=== PATIENT | female | born 1930 | race Caucasian/White ===

== ENCOUNTER 2016-12-15 19:09 | Emergency (ER) | payer MEDICARE, BC ==
--- NOTE | 2016-12-15 19:16 | EDM.PDOC ---
ED HPI HEAD INJURY - General Chief Complaint: Head Injury Stated Complaint: AMBULANCE Time Seen by Provider: 12/15/16 19:15 Source of Information: Reports: Patient, EMS History Limitations: Reports: No limitations - History of Present Illness INITIAL COMMENTS - FREE TEXT/NARRATIVE: EMS states Pt was walking up stairs tripped fell hitting head no LOC per bystander, Pt concerned since taking coumadin. Pt states walked up steps into [employer] and was looking for a seat when she tripped over something on floor and fell onto her head. denies LOC-neck pain. states concerned due to taking coumadin. - Related Data Allergies/ADRs: Allergies Allergy/AdvReac Type Severity Reaction Status Date / Time atorvastatin calcium Allergy Muscle Verified 12/15/16 19:12 [From Lipitor] Aches morphine Allergy Vomiting Verified 12/15/16 19:12 rosuvastatin calcium Allergy Muscle Verified 12/15/16 19:12 [From Crestor] Aches CALCIUM CONTAINING COMPOUNDS Allergy Cannot Uncoded 12/15/16 19:12 Remember Home Meds: Home Meds Albuterol [Ventolin HFA] 2 puff INH QID PRN 01/13/14 [History] Losartan [Cozaar] 25 mg PO DAILY 01/13/14 [History] Metoprolol Tartrate [Lopressor] 100 mg PO QAM 01/13/14 [History] Omeprazole 20 mg PO DAILY 01/13/14 [History] Simvastatin 40 mg PO BEDTIME 01/13/14 [History] Warfarin Sodium 3 mg PO DAILY 01/13/14 [History] amLODIPine Besylate [Amlodipine Besylate] 5 mg PO DAILY 01/13/14 [History] Acetaminophen [Tylenol] 325 mg PO Q3HR PRN 03/09/15 [History] Calcium Carb & Citrate/Vit D3 [Citracal + D ER] 1 tab PO BID 03/09/15 [History] Cholecalciferol (Vitamin D3) [Vitamin D3] 1,000 unit PO DAILY 03/09/15 [History] [place]-3 Fatty Acids [[place]-3] 1 cap PO BID 03/09/15 [History] Oxybutynin [Oxybutynin ER] 10 mg PO DAILY PRN 03/09/15 [History] Ascorbic Acid 500 mg PO DAILY 04/07/15 [History] Fluticasone Propionate [Flonase] 1 spray NASBOTH DAILY 04/07/15 [History] Nitroglycerin [Nitrostat] 1 tab SL ASDIRECTED PRN 04/07/15 [History] Budesonide/Formoterol [Symbicort 160-4.5 MCG] 2 puff INH BID 12/22/15 [History] Multivitamin [Daily Multiple Vitamin] 1 tab PO DAILY 12/22/15 [History] Aspirin [Ecotrin] 81 mg PO DAILY 01/17/16 [History] Furosemide [Lasix] 20 mg PO DAILY 01/17/16 [History] Metoprolol Tartrate [Lopressor] 50 mg PO QPM 01/17/16 [History] Potassium 99 mg PO DAILY 01/17/16 [History] Albuterol/Ipratropium [DuoNeb 3.0-0.5 MG/3 ML] 3 ml NEB Q6HRRT PRN #120 neb [Rx] Past Medical History HEENT History: Reports: Impaired vision Cardiovascular History: Reports: Afib, Hypertension, [place] Respiratory History: Reports: Asthma Gastrointestinal History: Reports: GERD Genitourinary History: Reports: Other (see below) Other Genitourinary History: overactive bladder 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 was a skin cancer Social & Family History - Family History Family Medical History: Unobtainable Cardiac: Reports: Heart failure Respiratory: Reports: Asthma - Tobacco Use Smoking Status *Q: Never Smoker Second Hand Smoke Exposure: No - Alcohol Use Days Per Week of Alcohol Use: 0 - Recreational Drug Use Recreational Drug Use: No Drug Use in Last 12 Months: No - Living Situation & Occupation Living situation: Reports: , alone Occupation: retired ED ROS GENERAL - Review of Systems Review Of Systems: ROS reveals no pertinent complaints other than HPI. ED EXAM, HEAD INJURY - Physical Exam Exam: See Below Exam Limited By: No limitations General Appearance: alert, WD/WN, no apparent distress Head: scalp hematoma. No: Daily's Sign, raccoon eyes Nexus Criteria: No: posterior, midline cervical tenderness, evidence of intoxication, altered level of consciousness, focal neurological deficit, painful distracting injuries Eyes: bilateral eye: PERRL (pupils ER @ 4mm) Ears: hearing grossly normal Throat/Mouth: Normal voice, No airway compromise Neck: non-tender, full range of motion Respiratory: no respiratory distress Cardiovascular: regular rate, rhythm GI/Abdominal Exam (Abbreviated): soft, non tender Neurologic: no motor/sensory deficits, alert, normal mood/affect, oriented x 3 Skin: Normal color, Warm/dry - Jesus Coma Score Best Eye Response ([place]): (4) open spontaneously Best Verbal Response ([place]): (5) oriented Best Motor Response ([place]): (6) obeys commands [place] Total: 15 Course - Vital Signs Last Recorded V/S: Last Vital Signs Temp 36.3 C 12/15/16 19:16 Pulse 86 12/15/16 19:16 Resp 20 12/15/16 19:16 BP 150/82 H 12/15/16 19:16 Pulse Ox 96 12/15/16 19:16 - Orders/Labs/Meds Orders: Active Orders 24 hr Category Date Time Status Head wo Cont [CT] Urgent Exams 12/15/16 19:16 Taken Knee 1V or 2V Rt [CR] Urgent Exams 12/15/16 Taken - Re-Assessments/Exams Free Text/Narrative Re-Assessment/Exam: 12/15/16 21:07 negative xrays discussed with Pt & family. Departure - Departure Time of Disposition: 21:07 Disposition: Home, Self-Care 01 Condition: good Clinical Impression: Forehead contusion Qualifiers: Encounter type: initial encounter Qualified Code(s): S00.83XA - Contusion of other part of head, initial encounter Contusion of right knee Qualifiers: Encounter type: initial encounter Qualified Code(s): S80.01XA - Contusion of right knee, initial encounter Instructions: Post-Concussion Syndrome, [id number] Forms: ED Department Discharge Additional Instructions: 1) elevate right leg as much as possible next 3 to 4 days 2) wear knee immobilizer for next 3 to 4 days 3) ice to swollen knee and forehead swelling 4) recheck is there is any concerns or changes 5) follow up at clinic Monday for possible MRI scan if knee swelling hadn't improved significantly. - My Orders Last 24 Hours: My Active Orders 12/15/16 Knee 1V or 2V Rt [CR] Urgent 12/15/16 19:16 Head wo Cont [CT] Urgent - Assessment/Plan Last 24 Hours: My Active Orders 12/15/16 Knee 1V or 2V Rt [CR] Urgent 12/15/16 19:16 Head wo Cont [CT] Urgent
[2016-12-15 19:17] VITALS: BP 150/82
== END 2016-12-15 21:31 | disposition home or self-care (01) ==
LOC: DL.ED 19:09
DX: S00.83XA Contusion of other part of head, initial encounter (principal); S80.01XA Contusion of right knee, initial encounter; I48.91 Unspecified atrial fibrillation; I10 Essential (primary) hypertension; I25.2 Old myocardial infarction; J45.909 Unspecified asthma, uncomplicated; K21.9 Gastro-esophageal reflux disease without esophagitis; Z86.73 Personal history of transient ischemic attack (TIA), and cerebral infarction without residual deficits; Z79.01 Long term (current) use of anticoagulants; Z79.82 Long term (current) use of aspirin; Z79.899 Other long term (current) drug therapy; Z98.41 Cataract extraction status, right eye; Z88.8 Allergy status to other drugs, medicaments and biological substances; W18.09XA Striking against other object with subsequent fall, initial encounter; Y92.22 Religious institution as the place of occurrence of the external cause
CPT/HCPCS: 70450; 73560-RT; 99282; 99285

== ENCOUNTER 2017-06-03 19:03 | Emergency (ER) | payer MEDICARE, BC ==
[2017-06-03 19:12] VITALS: BP 159/67
--- NOTE | 2017-06-03 19:49 | EDM.PDOC ---
ED HPI GENERAL MEDICAL PROBLEM - General Chief Complaint: Lower Extremity Injury/Pain Stated Complaint: FELL, CAME BY AMBULANCE Time Seen by Provider: 06/03/17 19:46 Source of Information: Reports: Patient History Limitations: Reports: No Limitations - History of Present Illness INITIAL COMMENTS - FREE TEXT/NARRATIVE: fell onto left knee [employer] DR[employer], had to call for ambulance to help up. denies head/neck injury or pain. - Related Data Allergies Allergy/AdvReac Type Severity Reaction Status Date / Time atorvastatin calcium Allergy Muscle Verified 06/03/17 19:08 [From Lipitor] Aches morphine Allergy Vomiting Verified 12/15/16 19:12 rosuvastatin calcium Allergy Muscle Verified 12/15/16 19:12 [From Crestor] Aches CALCIUM CONTAINING COMPOUNDS Allergy Cannot Uncoded 12/15/16 19:12 Remember Home Meds: Home Meds Albuterol [Ventolin HFA] 2 puff INH QID PRN 01/13/14 [History] Losartan [Cozaar] 25 mg PO DAILY 01/13/14 [History] Metoprolol Tartrate [Lopressor] 100 mg PO QAM 01/13/14 [History] Omeprazole 20 mg PO DAILY 01/13/14 [History] Simvastatin 40 mg PO BEDTIME 01/13/14 [History] Warfarin Sodium 3 mg PO DAILY 01/13/14 [History] amLODIPine Besylate [Amlodipine Besylate] 5 mg PO DAILY 01/13/14 [History] Acetaminophen [Tylenol] 325 mg PO Q3HR PRN 03/09/15 [History] Calcium Carb & Citrate/Vit D3 [Citracal + D ER] 1 tab PO BID 03/09/15 [History] Cholecalciferol (Vitamin D3) [Vitamin D3] 1,000 unit PO DAILY 03/09/15 [History] [place]-3 Fatty Acids [[place]-3] 1 cap PO BID 03/09/15 [History] Oxybutynin [Oxybutynin ER] 10 mg PO DAILY PRN 03/09/15 [History] Ascorbic Acid 500 mg PO DAILY 04/07/15 [History] Fluticasone Propionate [Flonase] 1 spray NASBOTH DAILY 04/07/15 [History] Nitroglycerin [Nitrostat] 1 tab SL ASDIRECTED PRN 04/07/15 [History] Budesonide/Formoterol [Symbicort 160-4.5 MCG] 2 puff INH BID 12/22/15 [History] Multivitamin [Daily Multiple Vitamin] 1 tab PO DAILY 12/22/15 [History] Aspirin [Ecotrin] 81 mg PO DAILY 01/17/16 [History] Furosemide [Lasix] 20 mg PO DAILY 01/17/16 [History] Metoprolol Tartrate [Lopressor] 50 mg PO QPM 01/17/16 [History] Potassium 99 mg PO DAILY 01/17/16 [History] Albuterol/Ipratropium [DuoNeb 3.0-0.5 MG/3 ML] 3 ml NEB Q6HRRT PRN #120 neb [Rx] Past Medical History HEENT History: Reports: Impaired Vision Cardiovascular History: Reports: Afib, Hypertension, [place] Respiratory History: Reports: Asthma Gastrointestinal History: Reports: GERD Genitourinary History: Reports: Other (See Below) Other Genitourinary History: overactive bladder 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: Neurological History: Reports: CVA Psychiatric History: Reports: None Hematologic History: Reports: Anticoagulation Therapy Oncologic (Cancer) History: Reports: Malignant Melanoma Dermatologic History: Reports: Eczema - Infectious Disease History Infectious Disease History: Reports: Chicken Pox, Helicobacter Pylori, Measles, Mumps - Past Surgical History HEENT Surgical History: Reports: Cataract Surgery Other Musculoskeletal Surgeries/Procedures:: Back surg Social & Family History - Family History Family Medical History: Unobtainable Cardiac: Reports: Heart Failure Respiratory: Reports: Asthma - Tobacco Use Smoking Status *Q: Never Smoker Second Hand Smoke Exposure: No - Caffeine Use Caffeine Use: Reports: Coffee, Soda, Tea - Alcohol Use Days Per Week of Alcohol Use: 0 - Recreational Drug Use Recreational Drug Use: No Drug Use in Last 12 Months: No - Living Situation & Occupation Living situation: Reports: , Alone Occupation: Retired Review of Systems - Review of Systems Review Of Systems: ROS reveals no pertinent complaints other than HPI. ED EXAM, GENERAL - Physical Exam Exam: See Below Exam Limited By: No Limitations General Appearance: Alert, WD/WN, Mild Distress, Other (discomfort) Ears: Hearing Grossly Normal Throat/Mouth: Normal Voice, No Airway Compromise Head: Atraumatic Neck: Non-Tender, Full Range of Motion Respiratory/Chest: No Respiratory Distress Cardiovascular: Regular Rate, Rhythm GI/Abdominal: Soft, Non-Tender Extremities: Other (left knee ecchymotic over patella, mild swelling, able to extend/flex without too much pain.) Neurological: Alert, Oriented, Normal Cognition, No Motor/Sensory Deficits Psychiatric: Tearful Skin Exam: Warm, Normal Color Lymphatic: No Adenopathy Course - Vital Signs Last Recorded V/S: Last Vital Signs Temp 36.1 C 06/03/17 19:09 Pulse 77 06/03/17 19:09 Resp 18 06/03/17 19:09 BP 159/67 H 06/03/17 19:09 Pulse Ox 94 L 06/03/17 19:09 - Orders/Labs/Meds Orders: Active Orders 24 hr Category Date Time Status Knee 3V Lt [CR] Urgent Exams 06/03/17 19:12 Taken - Re-Assessments/Exams Free Text/Narrative Re-Assessment/Exam: 06/03/17 20:20 results discussed with pt & family. Departure - Departure Time of Disposition: 20:20 Disposition: Home, Self-Care 01 Condition: Good Clinical Impression: Contusion of knee, left Qualifiers: Encounter type: initial encounter Qualified Code(s): S80.02XA - Contusion of left knee, initial encounter - Discharge Information Instructions: Contusion, [id number] Forms: ED Department Discharge Additional Instructions: 1) elevate leg as much as possible next 48 hours 2) ice intermittently for swelling 3) wear SHERIE for comfort may remove at bedtime 4) see family doctor Monday for possible MRI SCAN if not significantly improved - My Orders Last 24 Hours: My Active Orders 06/03/17 19:12 Knee 3V Lt [CR] Urgent - Assessment/Plan Last 24 Hours: My Active Orders 06/03/17 19:12 Knee 3V Lt [CR] Urgent
[2017-06-03] MEDS ORDERED: Acetaminophen 500 MG Tab PO ONE (20:22)
== END 2017-06-03 20:35 | disposition home or self-care (01) ==
LOC: DL.ED 19:03
DX: S80.02XA Contusion of left knee, initial encounter (principal); I10 Essential (primary) hypertension; I25.2 Old myocardial infarction; I48.91 Unspecified atrial fibrillation; J45.909 Unspecified asthma, uncomplicated; K21.9 Gastro-esophageal reflux disease without esophagitis; Z79.01 Long term (current) use of anticoagulants; Z79.899 Other long term (current) drug therapy; Z88.5 Allergy status to narcotic agent; Z88.8 Allergy status to other drugs, medicaments and biological substances; Z79.82 Long term (current) use of aspirin; Z86.73 Personal history of transient ischemic attack (TIA), and cerebral infarction without residual deficits; Z85.820 Personal history of malignant melanoma of skin; Z98.49 Cataract extraction status, unspecified eye; W19.XXXA Unspecified fall, initial encounter
CPT/HCPCS: 73562; 99284; A9270; 99283

== ENCOUNTER 2018-05-31 14:12 | Observation (INO) | payer MEDICARE, BC ==
--- NOTE | 2018-05-31 15:02 | CR ---
Clinical history: 87-year-old female who experienced a "popping sensation" while dressing. Interpretation: Mild, but age appropriate, demineralization of the long bones. No sign of long bone fracture left tibia or fibula. Chronic arthritic changes but no dislocation of the left knee or ankle joints (large heel spur at the insertion plantar aponeurosis base of the os calcis). Faint atheromatous calcifications (diabetic?) soft tissues. CONCLUSION: No long bone fracture left lower extremity.
--- NOTE | 2018-05-31 15:16 | EDM.PDOC ---
ED HPI GENERAL MEDICAL PROBLEM - General Chief Complaint: Lower Extremity Injury/Pain Stated Complaint: IN BY AMBULANCE LEG PAIN Time Seen by Provider: 05/31/18 17:15 Source of Information: Reports: Patient History Limitations: Reports: No Limitations - History of Present Illness INITIAL COMMENTS - FREE TEXT/NARRATIVE: This 87 yo female patient reports to the ED with left lower extremity pain. The patient lives in her own home and was doing her grocery shopping today. When she went to get into her vehicle, the patient reports hearing a "pop" in her left leg/calf. The patient continues to have pain in her left lower leg. The patient has attempted to do things at home after the injury, but was unable to walk, use the restroom or move about her home. Onset: Today Duration: Hour(s):, Constant Location: Reports: Lower Extremity, Left Quality: Reports: Ache, Dull Severity: Moderate Improves with: Reports: None Worsens with: Reports: None Associated Symptoms: Reports: No Other Symptoms Left Lower Leg Pain Score (Numeric/FACES): 10 - Related Data Allergies Allergy/AdvReac Type Severity Reaction Status Date / Time atorvastatin calcium Allergy Muscle Verified 05/31/18 14:43 [From Lipitor] Aches morphine Allergy Vomiting Verified 05/31/18 14:43 rosuvastatin calcium Allergy Muscle Verified 05/31/18 14:43 [From Crestor] Aches CALCIUM CONTAINING COMPOUNDS Allergy Cannot Uncoded 05/31/18 14:43 Remember Home Meds: Home Meds Albuterol [Ventolin HFA] 2 puff INH QID PRN 01/13/14 [History] Losartan [Cozaar] 25 mg PO DAILY 01/13/14 [History] Metoprolol Tartrate [Lopressor] 100 mg PO QAM 01/13/14 [History] Omeprazole 20 mg PO DAILY 01/13/14 [History] Warfarin Sodium 3 mg PO DAILY 01/13/14 [History] amLODIPine Besylate [Amlodipine Besylate] 5 mg PO DAILY 01/13/14 [History] Acetaminophen [Tylenol] 325 mg PO Q3HR PRN 03/09/15 [History] Calcium Carb & Citrate/Vit D3 [Citracal + D ER] 1 tab PO BID 03/09/15 [History] Cholecalciferol (Vitamin D3) [Vitamin D3] 1,000 unit PO DAILY 03/09/15 [History] [place]-3 Fatty Acids [[place]-3] 1 cap PO BID 03/09/15 [History] Oxybutynin [Oxybutynin ER] 10 mg PO DAILY PRN 03/09/15 [History] Ascorbic Acid 500 mg PO DAILY 04/07/15 [History] Fluticasone Propionate [Flonase] 1 spray NASBOTH DAILY 04/07/15 [History] Nitroglycerin [Nitrostat] 1 tab SL ASDIRECTED PRN 04/07/15 [History] Budesonide/Formoterol [Symbicort 160-4.5 MCG] 2 puff INH BID 12/22/15 [History] Multivitamin [Daily Multiple Vitamin] 1 tab PO DAILY 12/22/15 [History] Aspirin [Ecotrin] 81 mg PO DAILY 01/17/16 [History] Furosemide [Lasix] 20 mg PO DAILY 01/17/16 [History] Metoprolol Tartrate [Lopressor] 50 mg PO QPM 01/17/16 [History] Potassium 99 mg PO DAILY 01/17/16 [History] Albuterol/Ipratropium [DuoNeb 3.0-0.5 MG/3 ML] 3 ml NEB Q6HRRT PRN #120 neb [Rx] Pravastatin Sodium 20 mg PO DAILY 05/31/18 [History] Past Medical History HEENT History: Reports: Impaired Vision Cardiovascular History: Reports: Afib, Hypertension, [place] Respiratory History: Reports: Asthma, COPD Gastrointestinal History: Reports: GERD Genitourinary History: Reports: Other (See Below) Other Genitourinary History: overactive bladder 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: Neurological History: Reports: CVA Psychiatric History: Reports: None Hematologic History: Reports: Anticoagulation Therapy Oncologic (Cancer) History: Reports: Malignant Melanoma Dermatologic History: Reports: Eczema - Infectious Disease History Infectious Disease History: Reports: Chicken Pox, Helicobacter Pylori, Measles, Mumps - Past Surgical History HEENT Surgical History: Reports: Cataract Surgery Other Musculoskeletal Surgeries/Procedures:: Back surg x2 Social & Family History - Family History Family Medical History: Unobtainable Cardiac: Reports: Heart Failure Respiratory: Reports: Asthma - Tobacco Use Smoking Status *Q: Never Smoker Second Hand Smoke Exposure: No - Caffeine Use Caffeine Use: Reports: Coffee Other Caffeine Use: 1 cup of coffee a day. - Recreational Drug Use Recreational Drug Use: No - Living Situation & Occupation Living situation: Reports: , Alone Occupation: Retired Review of Systems - Review of Systems Review Of Systems: ROS reveals no pertinent complaints other than HPI. ED EXAM, GENERAL - Physical Exam Exam: See Below Exam Limited By: No Limitations General Appearance: Alert, WD/WN, Moderate Distress, Obese Eye Exam: Bilateral Eye: EOMI, Normal Inspection, PERRL Ears: Normal External Exam, Normal Canal, Hearing Grossly Normal, Normal TMs Nose: Normal Inspection, Normal Mucosa, No Blood Throat/Mouth: Normal Inspection, Normal Lips, Normal Teeth, Normal Gums, Normal Oropharynx, Normal Voice, No Airway Compromise Head: Atraumatic, Normocephalic Neck: Normal Inspection, Supple, Non-Tender, Full Range of Motion Respiratory/Chest: No Respiratory Distress, Lungs Clear, Normal Breath Sounds, No Accessory Muscle Use, Chest Non-Tender Cardiovascular: Normal Peripheral Pulses, Regular Rate, Rhythm, No Edema, No Gallop, No JVD, No Murmur, No Rub GI/Abdominal: Normal Bowel Sounds, Soft, Non-Tender, No Organomegaly, No Distention, No Abnormal Bruit, No Mass (Female) Exam: Deferred Rectal (Female) Exam: Deferred Back Exam: Normal Inspection, Full Range of Motion, NT Extremities: Leg Pain (left lower extremity) Neurological: Alert, Oriented, CN II-XII Intact, Normal Cognition, Abnormal Gait Psychiatric: Normal Affect, Normal Mood Skin Exam: Warm, Dry, Intact, Normal Color, No Rash Lymphatic: No Adenopathy Course - Vital Signs Last Recorded V/S: Last Vital Signs Temp 36.6 C 05/31/18 14:48 Pulse 76 05/31/18 14:48 Resp 16 05/31/18 14:48 BP 180/79 H 05/31/18 14:48 Pulse Ox 94 L 05/31/18 14:48 - Orders/Labs/Meds Labs: Laboratory Tests 05/31/18 05/31/18 05/31/18 Range/Units 15:53 15:53 16:35 WBC 6.5 (5.0-10.0) 10^3/uL RBC 4.12 L (4.2-5.4) 10^6/uL Hgb 12.6 D (12.0-16.0) g/dL Hct 38.6 (37.0-47.0) % MCV 93.7 (80-100) fL MCH 30.6 (27.0-34.0) pg MCHC 32.6 L (33.0-35.0) g/dL Plt Count 215 (150-450) 10^3/uL Lymph % (Auto) 21.9 (20.5-50.1) % [place] % (Auto) 5.1 (2-8) % Eos % (Auto) 1.2 (1.0-3.0) % Add Manual Diff Yes Neutrophils % (Manual) 72 (42-75) % Lymphocytes % (Manual) 22 (20-50) % Monocytes % (Manual) 5 (2-8) % Eosinophils % (Manual) 1 (1-3) % Sodium 142 (135-145) mmol/L Potassium 3.9 (3.6-5.0) mmol/L Chloride 103 (101-111) mmol/L Carbon Dioxide 31.0 (21.0-31.0) mmol/L Anion Gap 11.9 BUN 15 (7-18) mg/dL Creatinine 0.7 (0.6-1.3) mg/dL Est Cr Clr Drug Dosing 46.47 mL/min Estimated GFR (MDRD) > 60 BUN/Creatinine Ratio 21.42 Glucose 114 H (74-105) mg/dL Calcium 9.2 (8.4-10.2) mg/dl Total Bilirubin 1.0 (0.2-1.0) mg/dL AST 21 (10-42) IU/L ALT 26 (10-60) IU/L Alkaline Phosphatase 68 (42-121) IU/L Total Protein 7.3 (6.7-8.2) g/dl Albumin 4.2 (3.2-5.5) g/dl Globulin 3.1 Albumin/Globulin Ratio 1.35 Urine Color Light yellow (YELLOW) Urine Appearance Cloudy (CLEAR) Urine pH 7.0 (5.0-9.0) Ur Specific [place] 1.020 (1.005-1.030) Urine Protein Negative (NEGATIVE) Urine Glucose (UA) Negative (NEGATIVE) Urine Ketones Negative (NEGATIVE) Urine Occult Blood Large H (NEGATIVE) Urine Nitrite Negative (NEGATIVE) Urine Bilirubin Negative (NEGATIVE) Urine Urobilinogen 0.2 (0.2-1.0) mg/dL Ur Leukocyte Esterase Negative (NEGATIVE) Urine RBC 30-40 H /HPF Urine WBC 0-5 (0-5/HPF) /HPF Ur Epithelial Cells Few /HPF Urine Bacteria Rare (0-FEW/HPF) /HPF Departure - Departure Time of Disposition: 17:39 Disposition: Admitted As Inpatient 66 Condition: Fair Clinical Impression: Left leg pain, Decreased activities of daily living (ADL) - Discharge Information *PRESCRIPTION DRUG MONITORING PROGRAM REVIEWED*: Not Applicable *COPY OF PRESCRIPTION DRUG MONITORING REPORT IN PATIENT DANIELA: Not Applicable Forms: ED Department Discharge Care Plan Goals: Discussed the history, examination, lab and x-ray results with Dr. Telles. Dr. Telles accepted the patient for continued evaluation and management as an inpatient at [facility].
[2018-05-31 16:24] LABS: ANION GAP 11.9; CHLORIDE,CL 103 mmol/L (101-111); SODIUM,NA 142 mmol/L (135-145)
[2018-05-31] MEDS ORDERED: Ibuprofen 400 MG Tab PO PRN (19:53)
[2018-05-31] MEDS ORDERED: Ketorolac 30 MG/ML SDV IVPUSH PRN (19:53)
[2018-05-31] MEDS ORDERED: Albuterol/Ipratropium 3.0-0.5 MG/3 ML Neb Soln NEB PRN (19:56)
[2018-05-31] MEDS ORDERED: Acetaminophen 325 MG Tab PO PRN (19:56)
[2018-05-31] MEDS ORDERED: Albuterol 6.7 GM Inhaler INH PRN (19:56)
[2018-05-31] MEDS ORDERED: Nitroglycerin 0.4 MG Tab.SL SL PRN (19:56)
[2018-05-31] MEDS ORDERED: OXYBUTYNIN 10 MG PO PRN (19:56)
[2018-05-31] MEDS ORDERED: Metoprolol Tartrate 50 MG Tab PO SCH (20:00)
--- NOTE | 2018-05-31 20:10 | PCM.HP ---
H&P History of Present Illness - General Date of Service: 05/31/18 Admit Problem/Dx: Admission Diagnosis/Problem Admission Diagnosis/Problem Ambulatory dysfunction Source of Information: Patient History Limitations: Reports: No Limitations - History of Present Illness Initial Comments - Free Text/Narative: 87 yo F with PMH of hypertension, atrial fibrillation on coumadin, CVA, hyperlipidemia, who presents with left leg/knee pain of one day duration. Patient suddenly developed left leg/knee pain this afternoon. She was getting into her car after grocery shopping when she heard a popping sound and subsequently developed pain in the left leg around the knee joint posteriorly. The pain was sharp, worse with movement of the knee. She had significant ambulatory dysfunction at home and decided to come to the ED. In the ED, an xray of the tibia and fibula showed no fractures. ROS: noticed reddish urine. INR done today at clinic was 2.5 No chest pain, no SOB, no abdominal pain Onset of Symptoms: Reports: Today Location: Reports: Lower Extremity, Left Quality: Reports: Sharp Improves with: Reports: Immobilization Worsens with: Reports: Movement Left Lower Leg Pain Score (Numeric/FACES): 5 - Related Data Allergies/Adverse Reactions: Allergies Allergy/AdvReac Type Severity Reaction Status Date / Time atorvastatin calcium Allergy Muscle Verified 05/31/18 18:21 [From Lipitor] Aches morphine Allergy Vomiting Verified 05/31/18 18:21 rosuvastatin calcium Allergy Muscle Verified 05/31/18 18:21 [From Crestor] Aches CALCIUM CONTAINING COMPOUNDS Allergy Cannot Uncoded 05/31/18 18:21 Remember Home Medications: Home Meds Albuterol [Ventolin HFA] 2 puff INH QID PRN 01/13/14 [History] Losartan [Cozaar] 50 mg PO DAILY 01/13/14 [History] Metoprolol Tartrate [Lopressor] 100 mg PO QAM 01/13/14 [History] Omeprazole 20 mg PO DAILY 01/13/14 [History] Warfarin Sodium 3 mg PO .SASUMOTUWETH 01/13/14 [History] amLODIPine Besylate [Amlodipine Besylate] 5 mg PO DAILY 01/13/14 [History] Acetaminophen [Tylenol] 325 mg PO Q3HR PRN 03/09/15 [History] Calcium Carb & Citrate/Vit D3 [Citracal + D ER] 1 tab PO BID 03/09/15 [History] Cholecalciferol (Vitamin D3) [Vitamin D3] 1,000 unit PO DAILY 03/09/15 [History] [place]-3 Fatty Acids [[place]-3] 1 cap PO BID 03/09/15 [History] Oxybutynin [Oxybutynin ER] 10 mg PO DAILY PRN 03/09/15 [History] Ascorbic Acid 500 mg PO DAILY 04/07/15 [History] Fluticasone Propionate [Flonase] 2 spray NASBOTH DAILY 04/07/15 [History] Nitroglycerin [Nitrostat] 1 tab SL ASDIRECTED PRN 04/07/15 [History] Budesonide/Formoterol [Symbicort 160-4.5 MCG] 2 puff INH BID 12/22/15 [History] Multivitamin [Daily Multiple Vitamin] 1 tab PO DAILY 12/22/15 [History] Aspirin [Ecotrin] 81 mg PO DAILY 01/17/16 [History] Furosemide [Lasix] 20 mg PO DAILY 01/17/16 [History] Metoprolol Tartrate [Lopressor] 50 mg PO QPM 01/17/16 [History] Potassium 99 mg PO DAILY 01/17/16 [History] Albuterol/Ipratropium [DuoNeb 3.0-0.5 MG/3 ML] 3 ml NEB Q6HRRT PRN #120 neb [Rx] Pravastatin Sodium 20 mg PO BEDTIME 05/31/18 [History] Warfarin [Coumadin] 6 mg PO .Monday05/31/18 [History] Past Medical History HEENT History: Reports: Impaired Vision Cardiovascular History: Reports: Afib, Hypertension, PR Respiratory History: Reports: Asthma, COPD Gastrointestinal History: Reports: GERD Genitourinary History: Reports: Other (See Below) Other Genitourinary History: overactive 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 [employer] History: Reports: Neurological History: Reports: CVA Psychiatric History: Reports: None Endocrine/Metabolic History: Reports: Obesity/BMI 30+ Hematologic History: Reports: Anticoagulation Therapy Oncologic (Cancer) History: Reports: Malignant Melanoma Dermatologic History: Reports: Eczema - Infectious Disease History Infectious Disease History: Reports: Chicken Pox, Helicobacter Pylori, Measles, Mumps - Past Surgical History HEENT Surgical History: Reports: Adenoidectomy, Cataract Surgery, Tonsillectomy GI Surgical History: Reports: Appendectomy Female Surgical History: Reports: Hysterectomy Other Musculoskeletal Surgeries/Procedures:: Back surg x2 Social & Family History - Family History Family Medical History: Unobtainable Cardiac: Reports: Heart Failure Respiratory: Reports: Asthma - Tobacco Use Smoking Status *Q: Never Smoker Second Hand Smoke Exposure: No - Caffeine Use Caffeine Use: Reports: Coffee Other Caffeine Use: 1 cup of coffee a day. - Recreational Drug Use Recreational Drug Use: No - Living Situation & Occupation Living situation: Reports: , Alone Occupation: Retired H&P Review of Systems - Review of Systems: Review Of Systems: See Below General: Reports: No Symptoms. Denies: Fever HEENT: Reports: No Symptoms. Denies: Sore Throat Pulmonary: Reports: No Symptoms. Denies: Shortness of Breath Cardiovascular: Reports: No Symptoms. Denies: Chest Pain Gastrointestinal: Reports: No Symptoms. Denies: Abdominal Pain Genitourinary: Reports: Hematuria Musculoskeletal: Reports: Leg Pain Skin: Reports: No Symptoms Psychiatric: Reports: No Symptoms Neurological: Reports: No Symptoms Exam - Exam Exam: See Below - Vital Signs Vital Signs: Last Vital Signs Temp 37.1 C 05/31/18 18:21 Pulse 77 05/31/18 18:21 Resp 20 05/31/18 18:21 BP 166/86 H 05/31/18 18:21 Pulse Ox 95 05/31/18 18:21 Weight: 100.561 kg - Exam General: Alert, Oriented HEENT: Conjunctiva Clear Neck: Supple, Trachea Midline Lungs: Clear to Auscultation, Normal Respiratory Effort Cardiovascular: Regular Rate, Regular Rhythm GI/Abdominal Exam: Normal Bowel Sounds Extremities: Other (left knee tenderness, reduced ROM in left knee) - Patient Data Lab Results Last 24 hrs: Laboratory Results - last 24 hr 05/31/18 05/31/18 05/31/18 Range/Units 15:53 15:53 16:35 WBC 6.5 (5.0-10.0) 10^3/uL RBC 4.12 L (4.2-5.4) 10^6/uL Hgb 12.6 D (12.0-16.0) g/dL Hct 38.6 (37.0-47.0) % MCV 93.7 (80-100) fL MCH 30.6 (27.0-34.0) pg MCHC 32.6 L (33.0-35.0) g/dL Plt Count 215 (150-450) 10^3/uL Lymph % (Auto) 21.9 (20.5-50.1) % [place] % (Auto) 5.1 (2-8) % Eos % (Auto) 1.2 (1.0-3.0) % Add Manual Diff Yes Neutrophils % (Manual) 72 (42-75) % Lymphocytes % (Manual) 22 (20-50) % Monocytes % (Manual) 5 (2-8) % Eosinophils % (Manual) 1 (1-3) % Sodium 142 (135-145) mmol/L Potassium 3.9 (3.6-5.0) mmol/L Chloride 103 (101-111) mmol/L Carbon Dioxide 31.0 (21.0-31.0) mmol/L Anion Gap 11.9 BUN 15 (7-18) mg/dL Creatinine 0.7 (0.6-1.3) mg/dL Est Cr Clr Drug Dosing 46.47 mL/min Estimated GFR (MDRD) > 60 BUN/Creatinine Ratio 21.42 Glucose 114 H (74-105) mg/dL Calcium 9.2 (8.4-10.2) mg/dl Total Bilirubin 1.0 (0.2-1.0) mg/dL AST 21 (10-42) IU/L ALT 26 (10-60) IU/L Alkaline Phosphatase 68 (42-121) IU/L Total Protein 7.3 (6.7-8.2) g/dl Albumin 4.2 (3.2-5.5) g/dl Globulin 3.1 Albumin/Globulin Ratio 1.35 Urine Color Light yellow (YELLOW) Urine Appearance Cloudy (CLEAR) Urine pH 7.0 (5.0-9.0) Ur Specific [place] 1.020 (1.005-1.030) Urine Protein Negative (NEGATIVE) Urine Glucose (UA) Negative (NEGATIVE) Urine Ketones Negative (NEGATIVE) Urine Occult Blood Large H (NEGATIVE) Urine Nitrite Negative (NEGATIVE) Urine Bilirubin Negative (NEGATIVE) Urine Urobilinogen 0.2 (0.2-1.0) mg/dL Ur Leukocyte Esterase Negative (NEGATIVE) Urine RBC 30-40 H /HPF Urine WBC 0-5 (0-5/HPF) /HPF Ur Epithelial Cells Few /HPF Urine Bacteria Rare (0-FEW/HPF) /HPF Result Diagrams: 05/31/18 15:53 05/31/18 15:53 Problem List Initiated/Reviewed/Updated: Yes Orders Last 24hrs: Active Orders 24 hr Category Date Time Status Patient Status [ADT] Routine ADT 05/31/18 19:53 Active Ambulate [RC] ASDIRECTED Care 05/31/18 19:53 Active Bedrest Bathroom Privileges [RC] ASDIRECTED Care 05/31/18 19:53 Active Bedrest Bedside Commode [RC] ASDIRECTED Care 05/31/18 19:53 Active Up With Assistance [RC] ASDIRECTED Care 05/31/18 19:53 Active Up ad [place] [RC] ASDIRECTED Care 05/31/18 19:53 Active Up to Chair [RC] ASDIRECTED Care 05/31/18 19:53 Active VTE/DVT Education [RC] PER UNIT ROUTINE Care 05/31/18 19:53 Active Vital Signs [RC] Q4H Care 05/31/18 19:53 Active OT Evaluation and Treatment [CONS] Routine Cons 05/31/18 19:53 Active PT Evaluation and Treatment [CONS] Routine Cons 05/31/18 19:53 Active Regular Diet [DIET] Diet 05/31/18 Dinner Active Knee 3V Lt [CR] Routine Exams 05/31/18 19:38 Ordered INR,PT,PROTHROMBIN TIME [COAG] Stat Lab 05/31/18 19:59 Ordered Acetaminophen [Tylenol] Med 05/31/18 19:56 Ordered 325 mg PO Q3HR PRN Acetaminophen [Tylenol] Med 05/31/18 19:53 Ordered 650 mg PO Q4H PRN Albuterol [Ventolin HFA] Med 05/31/18 19:56 Ordered 2 puff INH QID PRN Albuterol/Ipratropium [DuoNeb 3.0-0.5 MG/3 ML] Med 05/31/18 19:56 Ordered 3 ml NEB Q6HRRT PRN Ascorbic Acid [Ascorbic Acid] Med 06/01/18 09:00 Ordered 500 mg PO DAILY Aspirin [Ecotrin] Med 06/01/18 09:00 Ordered 81 mg PO DAILY Budesonide/Formoterol Fumarate Med 05/31/18 21:00 Ordered 2 puff INH BID Calcium Carb & Citrate/Vit D3 [Citracal + D ER] Med 05/31/18 21:00 Ordered 1 tab PO BID Cholecalciferol (Vitamin D3) [Vitamin D3] Med 06/01/18 09:00 Ordered 1,000 unit PO DAILY Fluticasone Propionate [Flonase] Med 06/01/18 09:00 Ordered 2 spray NASBOTH DAILY Furosemide [Lasix] Med 06/01/18 09:00 Ordered 20 mg PO DAILY Ibuprofen [Motrin] Med 05/31/18 19:53 Ordered 400 mg PO Q6H PRN Ketorolac [Toradol] Med 05/31/18 19:53 Ordered 30 mg IVPUSH Q6H PRN Losartan [Cozaar] Med 06/01/18 09:00 Ordered 50 mg PO DAILY Metoprolol Tartrate Med 06/01/18 09:00 Ordered 100 mg PO QAM Metoprolol Tartrate [Lopressor] Med 05/31/18 20:00 Ordered 50 mg PO QPM Multivitamin [Daily Multiple Vitamin] Med 06/01/18 09:00 Ordered 1 tab PO DAILY Nitroglycerin [Nitrostat] Med 05/31/18 19:56 Ordered 1 tab SL ASDIRECTED PRN [place]-3 Fatty Acids [[place]-3] Med 05/31/18 21:00 Ordered 1 cap PO BID Omeprazole [Omeprazole] Med 06/01/18 09:00 Ordered 20 mg PO DAILY Oxybutynin [Oxybutynin ER] Med 05/31/18 19:56 Ordered 10 mg PO DAILY PRN Pravastatin Sodium [Pravastatin Sodium] Med 05/31/18 21:00 Ordered 20 mg PO BEDTIME amLODIPine Besylate [Amlodipine Besylate] Med 06/01/18 09:00 Ordered 5 mg PO DAILY Resuscitation Status Routine Resus Stat 05/31/18 19:53 Ordered Medication Orders Acetaminophen (Tylenol) 650 mg PO Q4H PRN PRN Reason: Pain (Mild 1-3)/fever Ibuprofen (Motrin) 400 mg PO Q6H PRN PRN Reason: Pain (moderate 4-6) Ketorolac Tromethamine (Toradol) 30 mg IVPUSH Q6H PRN PRN Reason: Pain (severe 7-10) Non-Formulary Medication (Acetaminophen [Tylenol]) 325 mg PO Q3HR PRN PRN Reason: Pain Non-Formulary Medication (Albuterol [Ventolin Hfa]) 2 puff INH QID PRN PRN Reason: Shortness of Breath Non-Formulary Medication (Albuterol/Ipratropium [Duoneb 3.0-0.5 Mg/3 Ml]) 3 ml NEB Q6HRRT PRN PRN Reason: Wheezing Non-Formulary Medication (Amlodipine Besylate [Amlodipine Besylate]) 5 mg PO DAILY [place]IMBO Non-Formulary Medication (Ascorbic Acid [Ascorbic Acid]) 500 mg PO DAILY [place]IM[place] Non-Formulary Medication (Aspirin [Ecotrin]) 81 mg PO DAILY [place] Non-Formulary Medication (Budesonide/Formoterol Fumarate) 2 puff INH BID [place] Non-Formulary Medication (Calcium Carb & Citrate/Vit D3 [Citracal + D Er]) 1 tab PO BID [place] Non-Formulary Medication (Cholecalciferol (Vitamin D3) [Vitamin D3]) 1,000 unit PO DAILY [place]IM[place] Non-Formulary Medication (Fluticasone Propionate [Flonase]) 2 spray NASBOTH DAILY [place]IM[place] Non-Formulary Medication (Furosemide [Lasix]) 20 mg PO DAILY [place] Non-Formulary Medication (Losartan [Cozaar]) 50 mg PO DAILY [place] Non-Formulary Medication (Metoprolol Tartrate [Lopressor]) 50 mg PO QPM [place] Non-Formulary Medication (Metoprolol Tartrate) 100 mg PO QAM [place] Non-Formulary Medication (Multivitamin [Daily Multiple Vitamin]) 1 tab PO DAILY [place] Non-Formulary Medication (Nitroglycerin [Nitrostat]) 1 tab SL ASDIRECTED PRN PRN Reason: Chest Pain Non-Formulary Medication ([place]-3 Fatty Acids [[place]-3]) 1 cap PO BID [place]IM[place] Non-Formulary Medication (Omeprazole [Omeprazole]) 20 mg PO DAILY [place]IM[place] Non-Formulary Medication (Oxybutynin [Oxybutynin Er]) 10 mg PO DAILY PRN PRN Reason: Other Non-Formulary Medication (Pravastatin Sodium [Pravastatin Sodium]) 20 mg PO BEDTIME [facility] Assessment/Plan Comment:: 87 yo F with PMH of hypertension, TIA/CVA, afib on anticoagulation, asthma who presents with left knee/leg pain and ambulatory dysfunction. Left Knee pain Possibly strain/sprain. Unlikely fracture/dislocation/hemarthrosis Check Xray of the left knee PT/OT Atrial fibrillation Rate control: continue metoprolol AC: on coumadin, recheck INR. Hold coumadin given hematuria Asthma Stable, not in acute exacerbation Continue symbicort Hx of CVA continue ASA, statin Hypertension continue amlodipine, losartan Code Status DNI/DNR. I discussed code status with the patient.
[2018-05-31] MEDS: Acetaminophen 325 MG Tab PO PRN (22:08)
[2018-05-31] MEDS: Formoterol/Mometasone 200-5 MCG 8.8 GM Inhaler IH SCH ×2 (22:11→22:29)
[2018-05-31] MEDS: Calcium Carbonate/Vitamin D3 1250 MG-200 Unit Tab PO SCH ×2 (22:19→23:39)
[2018-05-31] MEDS: FISH OIL 1000 MG PO SCH ×2 (22:20→22:27)
[2018-05-31] MEDS: PRAVASTATIN 20 MG PO SCH (22:21)
[2018-05-31] MEDS: [UNRECOGNIZED DRUG - OTHER] PO SCH (22:28)
[2018-05-31] MEDS: CALTRATE PO SCH (22:28)
[2018-06-01] MEDS: Acetaminophen 325 MG Tab PO PRN ×2 (06:06→10:59)
[2018-06-01] MEDS: CALTRATE PO SCH ×2 (08:32→18:05)
[2018-06-01] MEDS: [UNRECOGNIZED DRUG - OTHER] PO SCH ×2 (08:32→18:05)
[2018-06-01] MEDS: Furosemide 20 MG Tab **OWN MED PO SCH (08:33)
[2018-06-01] MEDS: FISH OIL 1000 MG PO SCH ×2 (08:33→20:10)
[2018-06-01] MEDS: METOPROLOL TARTRATE 100 MG PO SCH (08:35)
[2018-06-01] MEDS: Losartan 50 MG Tab **OWN MED PO SCH (08:35)
[2018-06-01] MEDS: FLUTICASONE NASBOTH SCH (08:36)
[2018-06-01] MEDS: AMLODIPINE 5 MG PO SCH (08:36)
[2018-06-01] MEDS: Aspirin 81 MG Tab.EC **OWN MED PO SCH (08:36)
[2018-06-01] MEDS: Formoterol/Mometasone 200-5 MCG 8.8 GM Inhaler IH SCH ×2 (08:47→20:09)
[2018-06-01] MEDS: Multivitamins,Therapeutic Tab PO SCH (08:51)
[2018-06-01] MEDS: Ascorbic Acid 500 MG Tab PO SCH (08:51)
[2018-06-01] MEDS: Cholecalciferol (Vitamin D3) 400 Unit Tab PO SCH (08:52)
--- NOTE | 2018-06-01 09:32 | CR ---
Clinical history: 87-year-old female complaining of left knee pain. Interpretation: 3 views left knee abnormal. Small suprapatellar bursal effusion and dense reactive sclerosis/marginal spur formation patellofemor al surface of the left patella. Similarly asymmetric narrowing of the medial knee joint compartment with some bony eburnation and hyp ertrophic marginal spur formation knee joint. No sign of pathologic skeletal lesion, left knee fracture, dislocation or radiopaque loose joint body . CONCLUSION: Left knee joint effusion. Osteoarthritis.
--- NOTE | 2018-06-01 10:35 | PCM.PN ---
- General Info Date of Service: 06/01/18 Admission Dx/Problem (Free Text): Admission Diagnosis/Problem Admission Diagnosis/Problem Ambulatory dysfunction Subjective Update: 87 yo F with PMH of asthma, afib on AC, hypertension who was admitted yesterday with ambulatory dysfunction and left knee pain. Still has left knee pain. Worse with movement. Had dysuria this morning, no fever. - Review of Systems General: Reports: No Symptoms. Denies: Fever HEENT: Reports: No Symptoms Pulmonary: Reports: No Symptoms. Denies: Shortness of Breath Cardiovascular: Reports: No Symptoms. Denies: Chest Pain Gastrointestinal: Reports: No Symptoms. Denies: Abdominal Pain Genitourinary: Reports: Dysuria Musculoskeletal: Reports: Leg Pain Skin: Reports: No Symptoms Neurological: Reports: No Symptoms - Patient Data Vitals - Most Recent: Last Vital Signs Temp 36.6 C 06/01/18 08:47 Pulse 83 06/01/18 08:47 Resp 20 06/01/18 08:47 BP 166/73 H 06/01/18 08:47 Pulse Ox 93 L 06/01/18 08:47 Weight - Most Recent: 100.289 kg I&O - Last 24 Hours: Intake & Output 05/31/18 06/01/18 06/01/18 22:59 06:59 14:59 Intake Total 500 200 Output Total 850 300 100 Balance -850 200 100 Lab Results Last 24 Hours: Laboratory Results - last 24 hr 05/31/18 05/31/18 05/31/18 Range/Units 15:53 15:53 16:35 WBC 6.5 (5.0-10.0) 10^3/uL RBC 4.12 L (4.2-5.4) 10^6/uL Hgb 12.6 D (12.0-16.0) g/dL Hct 38.6 (37.0-47.0) % MCV 93.7 (80-100) fL MCH 30.6 (27.0-34.0) pg MCHC 32.6 L (33.0-35.0) g/dL Plt Count 215 (150-450) 10^3/uL Lymph % (Auto) 21.9 (20.5-50.1) % [place] % (Auto) 5.1 (2-8) % Eos % (Auto) 1.2 (1.0-3.0) % Add Manual Diff Yes Neutrophils % (Manual) 72 (42-75) % Lymphocytes % (Manual) 22 (20-50) % Monocytes % (Manual) 5 (2-8) % Eosinophils % (Manual) 1 (1-3) % PT (9.0-12.0) SEC INR (0.9-1.2) Sodium 142 (135-145) mmol/L Potassium 3.9 (3.6-5.0) mmol/L Chloride 103 (101-111) mmol/L Carbon Dioxide 31.0 (21.0-31.0) mmol/L Anion Gap 11.9 BUN 15 (7-18) mg/dL Creatinine 0.7 (0.6-1.3) mg/dL Est Cr Clr Drug Dosing 46.47 mL/min Estimated GFR (MDRD) > 60 BUN/Creatinine Ratio 21.42 Glucose 114 H (74-105) mg/dL Calcium 9.2 (8.4-10.2) mg/dl Total Bilirubin 1.0 (0.2-1.0) mg/dL AST 21 (10-42) IU/L ALT 26 (10-60) IU/L Alkaline Phosphatase 68 (42-121) IU/L Total Protein 7.3 (6.7-8.2) g/dl Albumin 4.2 (3.2-5.5) g/dl Globulin 3.1 Albumin/Globulin Ratio 1.35 Urine Color Light yellow (YELLOW) Urine Appearance Cloudy (CLEAR) Urine pH 7.0 (5.0-9.0) Ur Specific [place] 1.020 (1.005-1.030) Urine Protein Negative (NEGATIVE) Urine Glucose (UA) Negative (NEGATIVE) Urine Ketones Negative (NEGATIVE) Urine Occult Blood Large H (NEGATIVE) Urine Nitrite Negative (NEGATIVE) Urine Bilirubin Negative (NEGATIVE) Urine Urobilinogen 0.2 (0.2-1.0) mg/dL Ur Leukocyte Esterase Negative (NEGATIVE) Urine RBC 30-40 H /HPF Urine WBC 0-5 (0-5/HPF) /HPF Ur Epithelial Cells Few /HPF Urine Bacteria Rare (0-FEW/HPF) /HPF // Range/Units 20:09 WBC (5.0-10.0) 10^3/uL RBC (4.2-5.4) 10^6/uL Hgb (12.0-16.0) g/dL Hct (37.0-47.0) % MCV (80-100) fL MCH (27.0-34.0) pg MCHC (33.0-35.0) g/dL Plt Count (150-450) 10^3/uL Lymph % (Auto) (20.5-50.1) % [place] % (Auto) (2-8) % Eos % (Auto) (1.0-3.0) % Add Manual Diff Neutrophils % (Manual) (42-75) % Lymphocytes % (Manual) (20-50) % Monocytes % (Manual) (2-8) % Eosinophils % (Manual) (1-3) % PT 19.4 H (9.0-12.0) SEC INR 2.0 H (0.9-1.2) Sodium (135-145) mmol/L Potassium (3.6-5.0) mmol/L Chloride (101-111) mmol/L Carbon Dioxide (21.0-31.0) mmol/L Anion Gap BUN (7-18) mg/dL Creatinine (0.6-1.3) mg/dL Est Cr Clr Drug Dosing mL/min Estimated GFR (MDRD) BUN/Creatinine Ratio Glucose (74-105) mg/dL Calcium (8.4-10.2) mg/dl Total Bilirubin (0.2-1.0) mg/dL AST (10-42) IU/L ALT (10-60) IU/L Alkaline Phosphatase (42-121) IU/L Total Protein (6.7-8.2) g/dl Albumin (3.2-5.5) g/dl Globulin Albumin/Globulin Ratio Urine Color (YELLOW) Urine Appearance (CLEAR) Urine pH (5.0-9.0) Ur Specific [place] (1.005-1.030) Urine Protein (NEGATIVE) Urine Glucose (UA) (NEGATIVE) Urine Ketones (NEGATIVE) Urine Occult Blood (NEGATIVE) Urine Nitrite (NEGATIVE) Urine Bilirubin (NEGATIVE) Urine Urobilinogen (0.2-1.0) mg/dL Ur Leukocyte Esterase (NEGATIVE) Urine RBC /HPF Urine WBC (0-5/HPF) /HPF Ur Epithelial Cells /HPF Urine Bacteria (0-FEW/HPF) /HPF Med Orders - Current: Current Medications Acetaminophen (Tylenol) 650 mg PO Q4H PRN PRN Reason: Pain (Mild 1-3)/fever Last Admin: 06/01/18 06:06 Dose: 650 mg Albuterol (Proventil Hfa) 0 gm INH QID PRN PRN Reason: Shortness of Breath Albuterol/Ipratropium (Duoneb 3.0-0.5 Mg/3 Ml) 3 ml NEB Q6H PRN PRN Reason: Wheezing Amlodipine Besylate (Norvasc) 5 mg PO DAILY [facility] Last Admin: 06/01/18 08:36 Dose: 5 mg Ascorbic Acid (Vitamin C) 500 mg PO DAILY [facility] Last Admin: 06/01/18 08:51 Dose: Not Given Aspirin (Halfprin) 81 mg PO DAILY [facility] Last Admin: 06/01/18 08:36 Dose: 81 mg Cholecalciferol (Vitamin D3) 1,000 units PO DAILY [facility] Last Admin: 06/01/18 08:52 Dose: Not Given Furosemide (Lasix) 20 mg PO DAILY [facility] Last Admin: 06/01/18 08:33 Dose: 20 mg Ceftriaxone Sodium 1,000 mg/ (Sodium Chloride) 100 mls @ 200 mls/hr IV Q24H [facility] Ibuprofen (Motrin) 400 mg PO Q6H PRN PRN Reason: Pain (moderate 4-6) Losartan Potassium (Cozaar) 50 mg PO DAILY [facility] Last Admin: 06/01/18 08:35 Dose: 50 mg Methyl Salicylate (Icy Hot Cream) 0 gm TOP TID [facility] Mometasone Furoate/Formoterol Fumar (Dulera 200-5 Mcg) 0 puff IH BID [facility] Last Admin: 06/01/18 08:47 Dose: Not Given Multivitamins (Thera) 1 each PO DAILY [facility] Last Admin: 06/01/18 08:51 Dose: Not Given Nitroglycerin (Nitrostat) 0 mg SL ASDIRECTED PRN PRN Reason: Chest Pain Fluticasone Nasal ([place] Own Med) 0 spray NASBOTH DAILY [facility] Last Admin: 06/01/18 08:36 Dose: 2 spray Fish Oil 1000mg (Own Med) 0 cap PO BID [facility] Last Admin: 06/01/18 08:33 Dose: 1 cap Omeprazole 20 Mg Cap (Own Med) 0 mg PO ACBREAKFAST [facility] Last Admin: 06/01/18 05:58 Dose: 20 mg Non-Formulary Medication (Oxybutynin [Oxybutynin Er]) 10 mg PO DAILY PRN PRN Reason: Other Pravastatin 20 Mg (Tab Own Med) 0 mg PO BEDTIME [facility] Last Admin: 05/31/18 22:21 Dose: 20 mg Metoprolol Tar 100mg (Tab Own Med) 0 each PO QAM [facility] Last Admin: 06/01/18 08:35 Dose: 1 each Caltrate 600 + D Tab (Own Med) 1 each PO BIDMEALS [facility] Last Admin: 06/01/18 08:32 Dose: 1 each Metoprolol Tar 100mg (/Tab Own Med) 0 each PO DAILY@1999 [facility] Tramadol HCl (Ultram) 50 mg PO Q4H PRN PRN Reason: Pain (severe 7-10) Warfarin Sodium (Pharmacy To Dose - Warfarin) 1 dose .XX ASDIRECTED [facility] Discontinued Medications Acetaminophen (Tylenol) 325 mg PO Q3H PRN PRN Reason: Pain Calcium Carbonate (Calcium Carbonate/Vitamin D 1250 Mg-200 Unit) 1 tab PO BID [facility] Last Admin: 05/31/18 23:39 Dose: Not Given Ketorolac Tromethamine (Toradol) 30 mg IVPUSH Q6H PRN PRN Reason: Pain (severe 7-10) Metoprolol Tartrate (Lopressor) 50 mg PO DAILY@1999 [facility] Last Admin: 05/31/18 22:17 Dose: 50 mg - Exam General: Alert, Oriented HEENT: Pupils Equal, Pupils Reactive Lungs: Clear to Auscultation, Normal Respiratory Effort Cardiovascular: Regular Rate, Regular Rhythm GI/Abdominal Exam: Normal Bowel Sounds, Soft, Non-Tender Extremities: Limited Range of Motion Skin: Warm, Dry, Intact - Problem List Review Problem List Initiated/Reviewed/Updated: Yes - My Orders Last 24 Hours: My Active Orders 05/31/18 19:53 Patient Status [ADT] Routine Ambulate [RC] ASDIRECTED Bedrest Bathroom Privileges [RC] ASDIRECTED Bedrest Bedside Commode [RC] ASDIRECTED Up With Assistance [RC] ASDIRECTED Up ad [place] [RC] ASDIRECTED Up to Chair [RC] ASDIRECTED VTE/DVT Education [RC] PER UNIT ROUTINE Vital Signs [RC] Q4H OT Evaluation and Treatment [CONS] Routine PT Evaluation and Treatment [CONS] Routine Acetaminophen [Tylenol] 650 mg PO Q4H PRN Ibuprofen [Motrin] 400 mg PO Q6H PRN Resuscitation Status Routine 05/31/18 19:56 Albuterol [Proventil HFA] 0 gm INH QID PRN Albuterol/Ipratropium [DuoNeb 3.0-0.5 MG/3 ML] 3 ml NEB Q6H PRN Nitroglycerin [Nitrostat] 0 mg SL ASDIRECTED PRN Oxybutynin [Oxybutynin ER] 10 mg PO DAILY PRN 05/31/18 21:00 Mometasone/Formoterol [Dulera 200-5 MCG] 0 puff IH BID [place]-3 Fatty Acids [[place]-3] 0 cap PO BID Pravastatin Sodium [Pravastatin Sodium] 0 mg PO BEDTIME 05/31/18 22:22 Patient's Own Medication [Ptom] 0 each PO DAILY@199905/31/18 22:30 Patient's Own Medication [Ptom] 1 each PO BIDMEALS 05/31/18 Dinner Regular Diet [DIET] 06/01/18 06:00 Omeprazole [Omeprazole] 0 mg PO ACBREAKFAST 06/01/18 09:00 Ascorbic Acid [Vitamin C] 500 mg PO DAILY Aspirin [Halfprin] 81 mg PO DAILY Cholecalciferol (Vitamin D3) [Vitamin D3] 1,000 units PO DAILY Fluticasone Propionate [Flonase] 0 spray NASBOTH DAILY Furosemide [Lasix] 20 mg PO DAILY Losartan [Cozaar] 50 mg PO DAILY Multivitamins,Therapeutic [Thera] 1 each PO DAILY Patient's Own Medication [Ptom] 0 each PO QAM amLODIPine [Norvasc] 5 mg PO DAILY 06/01/18 09:44 Menthol/Methyl Salicylate [Icy Hot Cream] See Dose Instructions TOP TID 06/01/18 10:09 Communication Order [RC] DAILY traMADol [Ultram] 50 mg PO Q4H PRN 06/01/18 10:10 ROBE Hose [Antiembolic Hose] [OM.PC] Routine 06/01/18 10:15 Warfarin Pharmacy to Dose [Pharmacy to Dose - Warfarin] 1 dose .XX ASDIRECTED cefTRIAXone [Rocephin] 1,000 mg Sodium Chloride 0.9% [Normal Saline] 100 ml IV Q24H - Plan Plan:: 87 yo F with PMH of hypertension, TIA/CVA, afib on anticoagulation, asthma who presents with left knee/leg pain and ambulatory dysfunction. Left Knee pain Possibly strain/sprain. Unlikely fracture/dislocation/hemarthrosis Check Xray of the left knee: osteoarthritis. Pain management: Add muscle rub and tramadol to pain regimen PT/OT Hematuria/Dysuria Likely cystitis Start antibiotics (IV ceftriaxone) Will discharge on oral medications Atrial fibrillation Rate control: continue metoprolol AC: INR 2.0, restart coumadin Asthma Stable, not in acute exacerbation Continue symbicort Hx of CVA continue ASA, statin Hypertension continue amlodipine, losartan Acceptable BP control Code Status DNI/DNR. I discussed code status with the patient.
[2018-06-01] MEDS: cefTRIAXone 1 GM in Sodium Chloride 0.9% 100 ML IV SCH (11:26)
[2018-06-01] MEDS: Menthol/Methyl Salicylate 85 GM Tube TOP SCH ×3 (11:28→20:12)
[2018-06-01] MEDS ORDERED: Patient's Own Medication 1 Each PO ONE (14:00)
[2018-06-01] MEDS: traMADol 50 MG Tab PO PRN (15:07)
[2018-06-01] MEDS: PRAVASTATIN 20 MG PO SCH (20:10)
[2018-06-01] MEDS: METOPROLOL TARTRATE PO SCH (20:12)
[2018-06-02] MEDS: traMADol 50 MG Tab PO PRN ×3 (02:51→12:57)
--- NOTE | 2018-06-02 07:49 | PCM.PN ---
- General Info Date of Service: 06/02/18 Admission Dx/Problem (Free Text): Admission Diagnosis/Problem Admission Diagnosis/Problem Ambulatory dysfunction Subjective Update: 87 yo F with PMH of asthma, afib on AC, hypertension who was admitted yesterday with ambulatory dysfunction and left knee pain. Still has left knee pain. Worse with movement. - Review of Systems General: Reports: No Symptoms. Denies: Fever HEENT: Reports: No Symptoms. Denies: Sore Throat Pulmonary: Reports: No Symptoms. Denies: Shortness of Breath Cardiovascular: Reports: No Symptoms. Denies: Chest Pain Gastrointestinal: Reports: No Symptoms. Denies: Abdominal Pain Musculoskeletal: Reports: Leg Pain, Joint Pain - Patient Data Vitals - Most Recent: Last Vital Signs Temp 37.1 C 06/02/18 05:00 Pulse 67 06/02/18 05:00 Resp 18 06/02/18 05:00 BP 140/65 06/02/18 05:00 Pulse Ox 90 L 06/02/18 05:00 Weight - Most Recent: 100.062 kg I&O - Last 24 Hours: Intake & Output 06/01/18 06/02/18 06/02/18 22:59 06:59 14:59 Intake Total 600 Output Total 500 300 Balance 100 -300 Lab Results Last 24 Hours: Laboratory Results - last 24 hr 06/01/18 06/02/18 Range/Units 11:43 06:25 PT 16.9 H 17.1 H (9.0-12.0) SEC INR 1.7 H 1.7 H (0.9-1.2) Med Orders - Current: Current Medications Acetaminophen (Tylenol) 650 mg PO Q4H PRN PRN Reason: Pain (Mild 1-3)/fever Last Admin: 06/01/18 10:59 Dose: 650 mg Albuterol (Proventil Hfa) 0 gm INH QID PRN PRN Reason: Shortness of Breath Albuterol/Ipratropium (Duoneb 3.0-0.5 Mg/3 Ml) 3 ml NEB Q6H PRN PRN Reason: Wheezing Amlodipine Besylate (Norvasc) 5 mg PO DAILY [facility] Last Admin: 06/01/18 08:36 Dose: 5 mg Ascorbic Acid (Vitamin C) 500 mg PO DAILY [facility] Last Admin: 06/01/18 08:51 Dose: Not Given Aspirin (Halfprin) 81 mg PO DAILY [facility] Last Admin: 06/01/18 08:36 Dose: 81 mg Cholecalciferol (Vitamin D3) 1,000 units PO DAILY [facility] Last Admin: 06/01/18 08:52 Dose: Not Given Furosemide (Lasix) 20 mg PO DAILY [facility] Last Admin: 06/01/18 08:33 Dose: 20 mg Ceftriaxone Sodium 1 gm/ (Sodium Chloride) 100 mls @ 200 mls/hr IV Q24H [facility] Last Infusion: 06/01/18 12:00 Dose: Infused Ibuprofen (Motrin) 400 mg PO Q6H PRN PRN Reason: Pain (moderate 4-6) Losartan Potassium (Cozaar) 50 mg PO DAILY [facility] Last Admin: 06/01/18 08:35 Dose: 50 mg Methyl Salicylate (Icy Hot Cream) 0 gm TOP TID [facility] Last Admin: 06/01/18 20:12 Dose: 1 applic Mometasone Furoate/Formoterol Fumar (Dulera 200-5 Mcg) 0 puff IH BID [facility] Last Admin: 06/01/18 20:09 Dose: Not Given Multivitamins (Thera) 1 each PO DAILY [facility] Last Admin: 06/01/18 08:51 Dose: Not Given Nitroglycerin (Nitrostat) 0 mg SL ASDIRECTED PRN PRN Reason: Chest Pain Fluticasone Nasal ([place] Own Med) 0 spray NASBOTH DAILY [facility] Last Admin: 06/01/18 08:36 Dose: 2 spray Fish Oil 1000mg (Own Med) 0 cap PO BID [facility] Last Admin: 06/01/18 20:10 Dose: Not Given Omeprazole 20 Mg Cap (Own Med) 0 mg PO ACBREAKFAST [facility] Last Admin: 06/02/18 05:19 Dose: 20 mg Pravastatin 20 Mg (Tab Own Med) 0 mg PO BEDTIME [facility] Last Admin: 06/01/18 20:10 Dose: 20 mg Metoprolol Tar 100mg (Tab Own Med) 0 each PO QAM [facility] Last Admin: 06/01/18 08:35 Dose: 1 each Oxybutynin Er 10 Mg (Pt's Own Med) 0 each PO DAILY PRN PRN Reason: Other Caltrate 600 + D Tab (Own Med) 1 each PO BIDMEALS [facility] Last Admin: 06/01/18 18:05 Dose: Not Given Metoprolol Tar 100mg (/Tab Own Med) 0 each PO DAILY@1999 [facility] Last Admin: 06/01/18 20:12 Dose: 50 each Warfarin 3 Mg Tab* Patient's Own Medication* 0 each PO ONETIME ONE Stop: 06/02/18 14:01 Tramadol HCl (Ultram) 50 mg PO Q4H PRN PRN Reason: Pain (severe 7-10) Last Admin: 06/02/18 02:51 Dose: 50 mg Warfarin Sodium (Pharmacy To Dose - Warfarin) 1 dose .XX ASDIRECTED [facility] Discontinued Medications Acetaminophen (Tylenol) 325 mg PO Q3H PRN PRN Reason: Pain Calcium Carbonate (Calcium Carbonate/Vitamin D 1250 Mg-200 Unit) 1 tab PO BID [facility] Last Admin: 05/31/18 23:39 Dose: Not Given Ketorolac Tromethamine (Toradol) 30 mg IVPUSH Q6H PRN PRN Reason: Pain (severe 7-10) Metoprolol Tartrate (Lopressor) 50 mg PO DAILY@1999 [facility] Last Admin: 05/31/18 22:17 Dose: 50 mg Patient Own Medication (Ptom) 0 each PO ONETIME ONE Stop: 06/01/18 14:01 Last Admin: 06/01/18 14:56 Dose: 2 each - Exam General: Alert, Oriented HEENT: Pupils Equal, Pupils Reactive Neck: Supple Lungs: Clear to Auscultation, Normal Respiratory Effort Cardiovascular: Regular Rate, Regular Rhythm GI/Abdominal Exam: Normal Bowel Sounds Extremities: Limited Range of Motion - Problem List Review Problem List Initiated/Reviewed/Updated: Yes - My Orders Last 24 Hours: My Active Orders 06/01/18 09:00 Ascorbic Acid [Vitamin C] 500 mg PO DAILY Aspirin [Halfprin] 81 mg PO DAILY Cholecalciferol (Vitamin D3) [Vitamin D3] 1,000 units PO DAILY Fluticasone Propionate [Flonase] 0 spray NASBOTH DAILY Furosemide [Lasix] 20 mg PO DAILY Losartan [Cozaar] 50 mg PO DAILY Multivitamins,Therapeutic [Thera] 1 each PO DAILY Patient's Own Medication [Ptom] 0 each PO QAM amLODIPine [Norvasc] 5 mg PO DAILY 06/01/18 09:44 Menthol/Methyl Salicylate [Icy Hot Cream] See Dose Instructions TOP TID 06/01/18 10:09 Communication Order [RC] DAILY traMADol [Ultram] 50 mg PO Q4H PRN 06/01/18 10:10 ROBE Hose [Antiembolic Hose] [OM.PC] Routine 06/01/18 10:15 Warfarin Pharmacy to Dose [Pharmacy to Dose - Warfarin] 1 dose .XX ASDIRECTED 06/01/18 11:00 cefTRIAXone [Rocephin] 1 gm Sodium Chloride 0.9% [Normal Saline] 100 ml IV Q24H 06/02/18 14:00 Patient's Own Medication [Ptom] 0 each PO ONETIME ONE 06/03/18 11:15 INR,PT,PROTHROMBIN TIME [COAG] DAILY 06/04/18 11:15 INR,PT,PROTHROMBIN TIME [COAG] DAILY 06/05/18 11:15 INR,PT,PROTHROMBIN TIME [COAG] DAILY 06/06/18 11:15 INR,PT,PROTHROMBIN TIME [COAG] DAILY 06/07/18 11:15 INR,PT,PROTHROMBIN TIME [COAG] DAILY - Plan Plan:: 87 yo F with PMH of hypertension, TIA/CVA, afib on anticoagulation, asthma who presents with left knee/leg pain and ambulatory dysfunction. Left Knee pain Possibly strain/sprain. Flare of Osteoarthritis Xray of the left knee: osteoarthritis. Pain management: Continue tylenol, tramadol, muscle rub for pain regimen PT/OT Hematuria/Dysuria, improved Likely cystitis Continue antibiotics (IV ceftriaxone) Will discharge on oral medications Atrial fibrillation Rate control: continue metoprolol AC: INR 2.0, restart coumadin Asthma Stable, not in acute exacerbation Continue symbicort Hx of CVA continue ASA, statin Hypertension continue amlodipine, losartan Acceptable BP control Code Status DNI/DNR
[2018-06-02] MEDS: Losartan 50 MG Tab **OWN MED PO SCH (09:02)
[2018-06-02] MEDS: Multivitamins,Therapeutic Tab PO SCH (09:02)
[2018-06-02] MEDS: AMLODIPINE 5 MG PO SCH (09:03)
[2018-06-02] MEDS: Furosemide 20 MG Tab **OWN MED PO SCH (09:03)
[2018-06-02] MEDS: Aspirin 81 MG Tab.EC **OWN MED PO SCH (09:03)
[2018-06-02] MEDS: Ascorbic Acid 500 MG Tab PO SCH (09:03)
[2018-06-02] MEDS: Cholecalciferol (Vitamin D3) 400 Unit Tab PO SCH (09:05)
[2018-06-02] MEDS: [UNRECOGNIZED DRUG - OTHER] PO SCH ×2 (09:08→17:38)
[2018-06-02] MEDS: CALTRATE PO SCH ×2 (09:08→17:38)
[2018-06-02] MEDS: Formoterol/Mometasone 200-5 MCG 8.8 GM Inhaler IH SCH ×2 (09:09→22:11)
[2018-06-02] MEDS: FISH OIL 1000 MG PO SCH ×2 (09:10→22:11)
[2018-06-02] MEDS: FLUTICASONE NASBOTH SCH (09:10)
[2018-06-02] MEDS: METOPROLOL TARTRATE 100 MG PO SCH (09:14)
[2018-06-02] MEDS: Menthol/Methyl Salicylate 85 GM Tube TOP SCH ×3 (09:17→22:11)
[2018-06-02] MEDS: cefTRIAXone 1 GM in Sodium Chloride 0.9% 100 ML IV SCH (12:34)
[2018-06-02] MEDS ORDERED: WARFARIN 3 MG PO ONE (14:00)
[2018-06-02] MEDS: METOPROLOL TARTRATE PO SCH (21:27)
[2018-06-02] MEDS: PRAVASTATIN 20 MG PO SCH (21:29)
[2018-06-03] MEDS: Multivitamins,Therapeutic Tab PO SCH (08:59)
[2018-06-03] MEDS: Furosemide 20 MG Tab **OWN MED PO SCH (08:59)
[2018-06-03] MEDS: traMADol 50 MG Tab PO PRN ×3 (08:59→18:10)
[2018-06-03] MEDS: Losartan 50 MG Tab **OWN MED PO SCH (08:59)
[2018-06-03] MEDS: Cholecalciferol (Vitamin D3) 400 Unit Tab PO SCH (09:00)
[2018-06-03] MEDS: AMLODIPINE 5 MG PO SCH (09:00)
[2018-06-03] MEDS: Aspirin 81 MG Tab.EC **OWN MED PO SCH (09:01)
[2018-06-03] MEDS: Ascorbic Acid 500 MG Tab PO SCH (09:01)
[2018-06-03] MEDS: [UNRECOGNIZED DRUG - OTHER] PO SCH ×2 (09:04→18:11)
[2018-06-03] MEDS: Formoterol/Mometasone 200-5 MCG 8.8 GM Inhaler IH SCH ×2 (09:04→20:25)
[2018-06-03] MEDS: CALTRATE PO SCH ×2 (09:04→18:11)
[2018-06-03] MEDS: FISH OIL 1000 MG PO SCH ×2 (09:06→20:26)
[2018-06-03] MEDS: FLUTICASONE NASBOTH SCH (09:07)
[2018-06-03] MEDS: Menthol/Methyl Salicylate 85 GM Tube TOP SCH ×3 (09:07→20:26)
[2018-06-03] MEDS: METOPROLOL TARTRATE 100 MG PO SCH (09:08)
--- NOTE | 2018-06-03 09:25 | PCM.PN ---
- General Info Date of Service: 06/03/18 Admission Dx/Problem (Free Text): Admission Diagnosis/Problem Admission Diagnosis/Problem Ambulatory dysfunction Subjective Update: 87 yo F with PMH of asthma, afib on AC, hypertension who was admitted yesterday with ambulatory dysfunction and left knee pain. Still has left knee pain. Worse with movement. - Review of Systems General: Denies: Fever HEENT: Denies: Sore Throat Pulmonary: Denies: Shortness of Breath Cardiovascular: Denies: Chest Pain Gastrointestinal: Denies: Abdominal Pain Genitourinary: Denies: Dysuria Musculoskeletal: Reports: Other (left knee pain) Skin: Reports: No Symptoms. Denies: Jaundice Neurological: Reports: No Symptoms - Patient Data Vitals - Most Recent: Last Vital Signs Temp 36.9 C 06/03/18 08:09 Pulse 68 06/03/18 08:09 Resp 20 06/03/18 08:09 BP 166/67 H 06/03/18 09:00 Pulse Ox 96 06/03/18 08:09 Weight - Most Recent: 100.97 kg I&O - Last 24 Hours: Intake & Output 06/02/18 06/03/18 06/03/18 22:59 06:59 14:59 Intake Total 450 Output Total 700 Balance -250 Lab Results Last 24 Hours: Laboratory Results - last 24 hr 06/03/18 Range/Units 06:23 PT 20.2 H (9.0-12.0) SEC INR 2.1 H (0.9-1.2) Med Orders - Current: Current Medications Acetaminophen (Tylenol) 650 mg PO Q4H PRN PRN Reason: Pain (Mild 1-3)/fever Last Admin: 06/01/18 10:59 Dose: 650 mg Albuterol (Proventil Hfa) 0 gm INH QID PRN PRN Reason: Shortness of Breath Albuterol/Ipratropium (Duoneb 3.0-0.5 Mg/3 Ml) 3 ml NEB Q6H PRN PRN Reason: Wheezing Amlodipine Besylate (Norvasc) 5 mg PO DAILY [facility] Last Admin: 06/03/18 09:00 Dose: 5 mg Ascorbic Acid (Vitamin C) 500 mg PO DAILY [facility] Last Admin: 06/03/18 09:01 Dose: 500 mg Aspirin (Halfprin) 81 mg PO DAILY [facility] Last Admin: 06/03/18 09:01 Dose: 81 mg Cholecalciferol (Vitamin D3) 1,000 units PO DAILY [facility] Last Admin: 06/03/18 09:00 Dose: 1,000 units Furosemide (Lasix) 20 mg PO DAILY [facility] Last Admin: 06/03/18 08:59 Dose: 20 mg Ceftriaxone Sodium 1 gm/ (Sodium Chloride) 100 mls @ 200 mls/hr IV Q24H [facility] Last Admin: 06/02/18 12:34 Dose: 200 mls/hr Ibuprofen (Motrin) 400 mg PO Q6H PRN PRN Reason: Pain (moderate 4-6) Losartan Potassium (Cozaar) 50 mg PO DAILY [facility] Last Admin: 06/03/18 08:59 Dose: 50 mg Methyl Salicylate (Icy Hot Cream) 0 gm TOP TID [facility] Last Admin: 06/03/18 09:07 Dose: 1 applic Mometasone Furoate/Formoterol Fumar (Dulera 200-5 Mcg) 0 puff IH BID [facility] Last Admin: 06/03/18 09:04 Dose: 2 puff Multivitamins (Thera) 1 each PO DAILY [facility] Last Admin: 06/03/18 08:59 Dose: 1 each Nitroglycerin (Nitrostat) 0 mg SL ASDIRECTED PRN PRN Reason: Chest Pain Fluticasone Nasal ([place] Own Med) 0 spray NASBOTH DAILY [facility] Last Admin: 06/03/18 09:07 Dose: 2 spray Fish Oil 1000mg (Own Med) 0 cap PO BID [facility] Last Admin: 06/03/18 09:06 Dose: 1 cap Omeprazole 20 Mg Cap (Own Med) 0 mg PO ACBREAKFAST [facility] Last Admin: 06/03/18 05:06 Dose: 20 mg Pravastatin 20 Mg (Tab Own Med) 0 mg PO BEDTIME [facility] Last Admin: 06/02/18 21:29 Dose: 20 mg Metoprolol Tar 100mg (Tab Own Med) 0 each PO QAM [facility] Last Admin: 06/03/18 09:08 Dose: 1 each Oxybutynin Er 10 Mg (Pt's Own Med) 0 each PO DAILY PRN PRN Reason: Other Caltrate 600 + D Tab (Own Med) 1 each PO BIDMEALS [facility] Last Admin: 06/03/18 09:04 Dose: 1 each Metoprolol Tar 100mg (/Tab Own Med) 0 each PO DAILY@1999 [facility] Last Admin: 06/02/18 21:27 Dose: 0.5 each Warfarin 3 Mg Tab* Patient's Own Medication* 0 each PO ONETIME ONE Stop: 06/03/18 14:01 Tramadol HCl (Ultram) 50 mg PO Q4H PRN PRN Reason: Pain (severe 7-10) Last Admin: 06/03/18 08:59 Dose: 50 mg Warfarin Sodium (Pharmacy To Dose - Warfarin) 1 dose .XX ASDIRECTED [facility] Discontinued Medications Acetaminophen (Tylenol) 325 mg PO Q3H PRN PRN Reason: Pain Calcium Carbonate (Calcium Carbonate/Vitamin D 1250 Mg-200 Unit) 1 tab PO BID [facility] Last Admin: 05/31/18 23:39 Dose: Not Given Ketorolac Tromethamine (Toradol) 30 mg IVPUSH Q6H PRN PRN Reason: Pain (severe 7-10) Metoprolol Tartrate (Lopressor) 50 mg PO DAILY@1999 [facility] Last Admin: 05/31/18 22:17 Dose: 50 mg Patient Own Medication (Ptom) 0 each PO ONETIME ONE Stop: 06/01/18 14:01 Last Admin: 06/01/18 14:56 Dose: 2 each Warfarin 3 Mg Tab* Patient's Own Medication* 0 each PO ONETIME ONE Stop: 06/02/18 14:01 Last Admin: 06/02/18 13:04 Dose: 2 each - Exam General: Alert, Oriented HEENT: Pupils Equal, Pupils Reactive Lungs: Clear to Auscultation Cardiovascular: Regular Rate, Regular Rhythm GI/Abdominal Exam: Normal Bowel Sounds Extremities: Limited Range of Motion - Problem List Review Problem List Initiated/Reviewed/Updated: Yes - My Orders Last 24 Hours: My Active Orders 06/02/18 09:26 SCD [Sequential Compression Device] [OM.PC] Routine 06/03/18 14:00 Patient's Own Medication [Ptom] 0 each PO ONETIME ONE 06/04/18 11:15 INR,PT,PROTHROMBIN TIME [COAG] DAILY 06/05/18 11:15 INR,PT,PROTHROMBIN TIME [COAG] DAILY 06/06/18 11:15 INR,PT,PROTHROMBIN TIME [COAG] DAILY 06/07/18 11:15 INR,PT,PROTHROMBIN TIME [COAG] DAILY - Plan Plan:: 87 yo F with PMH of hypertension, TIA/CVA, afib on anticoagulation, asthma who presents with left knee/leg pain and ambulatory dysfunction. Left Knee pain Possibly strain/sprain + Flare of Osteoarthritis Xray of the left knee: osteoarthritis. Pain management: Continue tylenol, tramadol, muscle rub for pain regimen PT/OT Hematuria/Dysuria, improved Likely cystitis Continue antibiotics (IV ceftriaxone) Will discharge on oral medications Atrial fibrillation Rate control: continue metoprolol AC: INR 2.0, restart coumadin Asthma Stable, not in acute exacerbation Continue symbicort Hx of CVA continue ASA, statin Hypertension continue amlodipine, losartan Acceptable BP control Code Status DNI/DNR
[2018-06-03] MEDS: cefTRIAXone 1 GM in Sodium Chloride 0.9% 100 ML IV SCH (12:10)
[2018-06-03] MEDS ORDERED: WARFARIN 3 MG PO ONE (14:00)
[2018-06-03] MEDS: METOPROLOL TARTRATE PO SCH (20:01)
[2018-06-03] MEDS: PRAVASTATIN 20 MG PO SCH (20:27)
[2018-06-04] MEDS: traMADol 50 MG Tab PO PRN (04:14)
[2018-06-04] MEDS: [UNRECOGNIZED DRUG - OTHER] PO SCH (08:13)
[2018-06-04] MEDS: CALTRATE PO SCH (08:13)
[2018-06-04] MEDS: Losartan 50 MG Tab **OWN MED PO SCH (08:13)
[2018-06-04] MEDS: Aspirin 81 MG Tab.EC **OWN MED PO SCH (08:14)
[2018-06-04] MEDS: FLUTICASONE NASBOTH SCH (08:14)
[2018-06-04] MEDS: AMLODIPINE 5 MG PO SCH (08:15)
[2018-06-04] MEDS: Menthol/Methyl Salicylate 85 GM Tube TOP SCH ×2 (08:15→13:17)
[2018-06-04] MEDS: Furosemide 20 MG Tab **OWN MED PO SCH (08:15)
[2018-06-04] MEDS: FISH OIL 1000 MG PO SCH (08:16)
[2018-06-04] MEDS: Ascorbic Acid 500 MG Tab PO SCH (08:17)
[2018-06-04] MEDS: METOPROLOL TARTRATE 100 MG PO SCH (08:17)
[2018-06-04] MEDS: Cholecalciferol (Vitamin D3) 400 Unit Tab PO SCH (08:17)
[2018-06-04] MEDS: Multivitamins,Therapeutic Tab PO SCH (08:17)
[2018-06-04] MEDS: Formoterol/Mometasone 200-5 MCG 8.8 GM Inhaler IH SCH (08:18)
[2018-06-04] MEDS ORDERED: WARFARIN 3 MG PO ONE ×2 (09:00→14:00)
[2018-06-04] MEDS: cefTRIAXone 1 GM in Sodium Chloride 0.9% 100 ML IV SCH (11:22)
[2018-06-04] MEDS ORDERED: Sodium Chloride 0.9% 10 ML Syringe FLUSH PRN (11:29)
--- NOTE | 2018-06-04 13:37 | US ---
CLINICAL HISTORY: 87-year-old female with pain behind the left knee. Cunningham's cyst? Aneurysm? DVT popl iteal vein? INTERPRETATION: NOTE: Two adjacent hypoechoic, avascular, cystic lesions behind the knee medial to the popliteal vess els measuring respectively,15.8 mm x 10 mm and 21.4 mm x 44.8 mm diameter. No sign of popliteal artery aneurysm. Demonstrable blood flow and no intraluminal thrombus or abnormal compressibility of the popliteal vei n, i.e., no DVT behind the knee. 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
[2018-06-04 14:39] VITALS: BP 134/54
--- NOTE | 2018-06-04 14:53 | PCM.DCSUM1 ---
Discharge Summary - Hospital Course Free Text/Narrative:: 87 yo F with PMH of hypertension, atrial fibrillation on coumadin, CVA, hyperlipidemia, who presents with left leg/knee pain of one day duration. Patient suddenly developed left leg/knee pain on 05/31/2018. She was getting into her car after grocery shopping when she heard a popping sound and subsequently developed pain in the left leg around the knee joint posteriorly. The pain was sharp, worse with movement of the knee. She had significant ambulatory dysfunction at home and decided to come to the ED. In the ED, an xray of the tibia and fibula showed no fractures. Subsequent knee Xray showed features of osteoarthritis. She was started on pain medications and PT. She did not get relief from the pain. US of the popliteal region showed two cysts. She was transferred to [facility] for Ortho eval given the failure of medical treatment. Also had hematuria and dysuria and was treated empirically with IV ceftriaxone. - Discharge Data Discharge Date: 06/04/18 Discharge Disposition: DC/Tfer to Acute Hospital 02 Condition: Fair - Patient Summary/Data Consults: Consultations 05/31/18 19:53 OT Evaluation and Treatment [CONS] Routine PT Evaluation and Treatment [CONS] Routine - Discharge Plan *PRESCRIPTION DRUG MONITORING PROGRAM REVIEWED*: Not Applicable *COPY OF PRESCRIPTION DRUG MONITORING REPORT IN PATIENT DANIELA: Not Applicable Home Medications: Home Meds Albuterol [Ventolin HFA] 2 puff INH QID PRN 01/13/14 [History] Losartan [Cozaar] 50 mg PO DAILY 01/13/14 [History] Metoprolol Tartrate [Lopressor] 100 mg PO QAM 01/13/14 [History] Omeprazole 20 mg PO DAILY 01/13/14 [History] Warfarin Sodium 3 mg PO .SASUMOTUWETH 01/13/14 [History] amLODIPine Besylate [Amlodipine Besylate] 5 mg PO DAILY 01/13/14 [History] Acetaminophen [Tylenol] 325 mg PO Q3HR PRN 03/09/15 [History] Calcium Carb & Citrate/Vit D3 [Citracal + D ER] 1 tab PO DAILY 03/09/15 [History ] Cholecalciferol (Vitamin D3) [Vitamin D3] 1,000 unit PO DAILY 03/09/15 [History] [place]-3 Fatty Acids [[place]-3] 1 cap PO BID 03/09/15 [History] Oxybutynin [Oxybutynin ER] 10 mg PO DAILY PRN 03/09/15 [History] Ascorbic Acid 500 mg PO DAILY 04/07/15 [History] Fluticasone Propionate [Flonase] 2 spray NASBOTH DAILY 04/07/15 [History] Nitroglycerin [Nitrostat] 1 tab SL ASDIRECTED PRN 04/07/15 [History] Budesonide/Formoterol [Symbicort 160-4.5 MCG] 2 puff INH BID 12/22/15 [History] Multivitamin [Daily Multiple Vitamin] 1 tab PO DAILY 12/22/15 [History] Aspirin [Ecotrin] 81 mg PO DAILY 01/17/16 [History] Furosemide [Lasix] 20 mg PO DAILY 01/17/16 [History] Metoprolol Tartrate [Lopressor] 50 mg PO QPM 01/17/16 [History] Potassium 99 mg PO DAILY 01/17/16 [History] Albuterol/Ipratropium [DuoNeb 3.0-0.5 MG/3 ML] 3 ml NEB Q6HRRT PRN #120 neb [Rx] Pravastatin Sodium 20 mg PO BEDTIME 05/31/18 [History] Warfarin [Coumadin] 6 mg PO .Monday05/31/18 [History] Forms: ED Department Discharge Referrals: PCP,Unobtain [Ordering Only Provider] - - Discharge Summary/Plan Comment DC Time >30 min.: Yes - Patient Data Vitals - Most Recent: Last Vital Signs Temp 36.4 C 06/04/18 14:38 Pulse 61 06/04/18 14:38 Resp 20 06/04/18 14:38 BP 134/54 L 06/04/18 14:38 Pulse Ox 93 L 06/04/18 14:38 Weight - Most Recent: 101.514 kg I&O - Last 24 hours: Intake & Output 06/03/18 06/04/18 06/04/18 22:59 06:59 14:59 Intake Total 400 150 840 Output Total 450 200 Balance 400 -300 640 Lab Results - Last 24 hrs: Laboratory Results - last 24 hr 06/04/18 Range/Units 06:10 PT 18.9 H (9.0-12.0) SEC INR 1.9 H (0.9-1.2) Med Orders - Current: Current Medications Acetaminophen (Tylenol) 650 mg PO Q4H PRN PRN Reason: Pain (Mild 1-3)/fever Last Admin: 06/01/18 10:59 Dose: 650 mg Albuterol (Proventil Hfa) 0 gm INH QID PRN PRN Reason: Shortness of Breath Albuterol/Ipratropium (Duoneb 3.0-0.5 Mg/3 Ml) 3 ml NEB Q6H PRN PRN Reason: Wheezing Amlodipine Besylate (Norvasc) 5 mg PO DAILY [facility] Last Admin: 06/04/18 08:15 Dose: 5 mg Ascorbic Acid (Vitamin C) 500 mg PO DAILY [facility] Last Admin: 06/04/18 08:17 Dose: Not Given Aspirin (Halfprin) 81 mg PO DAILY [facility] Last Admin: 06/04/18 08:14 Dose: 81 mg Cholecalciferol (Vitamin D3) 1,000 units PO DAILY [facility] Last Admin: 06/04/18 08:17 Dose: Not Given Furosemide (Lasix) 20 mg PO DAILY [facility] Last Admin: 06/04/18 08:15 Dose: 20 mg Ceftriaxone Sodium 1 gm/ (Sodium Chloride) 100 mls @ 200 mls/hr IV Q24H [facility] Last Infusion: 06/04/18 12:00 Dose: Infused Ibuprofen (Motrin) 400 mg PO Q6H PRN PRN Reason: Pain (moderate 4-6) Losartan Potassium (Cozaar) 50 mg PO DAILY [facility] Last Admin: 06/04/18 08:13 Dose: 50 mg Methyl Salicylate (Icy Hot Cream) 0 gm TOP TID [facility] Last Admin: 06/04/18 13:17 Dose: 1 applic Mometasone Furoate/Formoterol Fumar (Dulera 200-5 Mcg) 0 puff IH BID [facility] Last Admin: 06/04/18 08:18 Dose: Not Given Multivitamins (Thera) 1 each PO DAILY [facility] Last Admin: 06/04/18 08:17 Dose: Not Given Nitroglycerin (Nitrostat) 0 mg SL ASDIRECTED PRN PRN Reason: Chest Pain Fluticasone Nasal ([place] Own Med) 0 spray NASBOTH DAILY [facility] Last Admin: 06/04/18 08:14 Dose: 2 spray Fish Oil 1000mg (Own Med) 0 cap PO BID [facility] Last Admin: 06/04/18 08:16 Dose: 1 cap Omeprazole 20 Mg Cap (Own Med) 0 mg PO ACBREAKFAST [facility] Last Admin: 06/04/18 06:19 Dose: 20 mg Pravastatin 20 Mg (Tab Own Med) 0 mg PO BEDTIME [facility] Last Admin: 06/03/18 20:27 Dose: 20 mg Metoprolol Tar 100mg (Tab Own Med) 0 each PO QAM [facility] Last Admin: 06/04/18 08:17 Dose: 1 each Oxybutynin Er 10 Mg (Pt's Own Med) 0 each PO DAILY PRN PRN Reason: Other Caltrate 600 + D Tab (Own Med) 1 each PO BIDMEALS [facility] Last Admin: 06/04/18 08:13 Dose: 1 each Metoprolol Tar 100mg (/Tab Own Med) 0 each PO DAILY@1999 [facility] Last Admin: 06/03/18 20:01 Dose: 1 each Sodium Chloride (Saline Flush) 10 ml FLUSH ASDIRECTED PRN PRN Reason: Keep Vein Open Last Admin: 06/04/18 12:01 Dose: 10 ml Tramadol HCl (Ultram) 50 mg PO Q4H PRN PRN Reason: Pain (severe 7-10) Last Admin: 06/04/18 04:14 Dose: 50 mg Warfarin Sodium (Pharmacy To Dose - Warfarin) 1 dose .XX ASDIRECTED [facility] Discontinued Medications Acetaminophen (Tylenol) 325 mg PO Q3H PRN PRN Reason: Pain Calcium Carbonate (Calcium Carbonate/Vitamin D 1250 Mg-200 Unit) 1 tab PO BID [facility] Last Admin: 05/31/18 23:39 Dose: Not Given Ketorolac Tromethamine (Toradol) 30 mg IVPUSH Q6H PRN PRN Reason: Pain (severe 7-10) Metoprolol Tartrate (Lopressor) 50 mg PO DAILY@1999 [facility] Last Admin: 05/31/18 22:17 Dose: 50 mg Patient Own Medication (Ptom) 0 each PO ONETIME ONE Stop: 06/01/18 14:01 Last Admin: 06/01/18 14:56 Dose: 2 each Warfarin 3 Mg Tab* Patient's Own Medication* 0 each PO ONETIME ONE Stop: 06/02/18 14:01 Last Admin: 06/02/18 13:04 Dose: 2 each Warfarin 3 Mg Tab* Patient's Own Medication* 0 each PO ONETIME ONE Stop: 06/03/18 14:01 Last Admin: 06/03/18 13:22 Dose: 3 each Warfarin 3 Mg Tab* Patient's Own Medication* 0 each PO ONETIME ONE Stop: 06/04/18 14:01 Last Admin: 06/04/18 13:17 Dose: 6 each
== END 2018-06-04 15:59 ==
LOC: DL.ED 14:12 → DL.MS 18:18 → UNDOADMOB 18:18 → DL.MS 19:53
PROVIDERS: ADMIT Hospitalist; ATTEND Hospitalist
DX: M25.461 Effusion, right knee (principal); M17.12 Unilateral primary osteoarthritis, left knee; I10 Essential (primary) hypertension; I25.2 Old myocardial infarction; I48.91 Unspecified atrial fibrillation; J44.9 Chronic obstructive pulmonary disease, unspecified; K21.9 Gastro-esophageal reflux disease without esophagitis; E78.5 Hyperlipidemia, unspecified; E66.9 Obesity, unspecified; Z68.41 Body mass index [BMI] 40.0-44.9, adult; Z79.01 Long term (current) use of anticoagulants; Z79.82 Long term (current) use of aspirin; Z79.899 Other long term (current) drug therapy; Z88.5 Allergy status to narcotic agent; Z88.8 Allergy status to other drugs, medicaments and biological substances; Z91.048 Other nonmedicinal substance allergy status
CPT/HCPCS: 36415; 73562; 73590; 76881; 80053; 81001; 85025; 85610; 97161; 97165; 99283; 99285; A9270; J0696; J7050; 96365; 96366; G0378

== ENCOUNTER 2019-09-11 17:45 | Inpatient (IN) | payer MEDICARE, BC ==
--- NOTE | 2019-09-11 17:50 | EDM.PDOC ---
ED HPI GENERAL MEDICAL PROBLEM - General Chief Complaint: Respiratory Problem Stated Complaint: CLINIC Time Seen by Provider: 09/11/19 17:49 Source of Information: Reports: Patient, Other (clinic) History Limitations: Reports: No Limitations - History of Present Illness INITIAL COMMENTS - FREE TEXT/NARRATIVE: sent from clinic for low O2 sat. possible sepsis. pt c/o SOB few days, worse today with productive cough. went to clinic and sent here. - Related Data Allergies Allergy/AdvReac Type Severity Reaction Status Date / Time atorvastatin calcium Allergy Muscle Verified 09/11/19 17:53 [From Lipitor] Aches morphine Allergy Vomiting Verified 09/11/19 17:53 rosuvastatin calcium Allergy Muscle Verified 09/11/19 17:53 [From Crestor] Aches CALCIUM CONTAINING COMPOUNDS Allergy Cannot Uncoded 05/31/18 18:21 Remember Home Meds: Home Meds Albuterol [Ventolin HFA] 2 puff INH QID PRN 01/13/14 [History] Losartan [Cozaar] 50 mg PO DAILY 01/13/14 [History] Metoprolol Tartrate [Lopressor] 100 mg PO QAM 01/13/14 [History] Omeprazole 20 mg PO DAILY 01/13/14 [History] Warfarin Sodium 3 mg PO .SASUMOTUWETH 01/13/14 [History] amLODIPine Besylate [Amlodipine Besylate] 5 mg PO DAILY 01/13/14 [History] Acetaminophen [Tylenol] 325 mg PO Q3HR PRN 03/09/15 [History] Calcium Carb, Citrate/Vit D3 [Citracal + D ER] 1 tab PO DAILY 03/09/15 [History] Cholecalciferol (Vitamin D3) [Vitamin D3] 1,000 unit PO DAILY 03/09/15 [History] [place]-3 Fatty Acids [[place]-3] 1 cap PO BID 03/09/15 [History] Oxybutynin [Oxybutynin ER] 10 mg PO DAILY PRN 03/09/15 [History] Ascorbic Acid 500 mg PO DAILY 04/07/15 [History] Fluticasone Propionate [Flonase] 2 spray NASBOTH DAILY 04/07/15 [History] Nitroglycerin [Nitrostat] 1 tab SL ASDIRECTED PRN 04/07/15 [History] Budesonide/Formoterol [Symbicort 160-4.5 MCG] 2 puff INH BID 12/22/15 [History] Multivitamin [Daily Multiple Vitamin] 1 tab PO DAILY 12/22/15 [History] Aspirin [Ecotrin EC] 81 mg PO DAILY 01/17/16 [History] Furosemide [Lasix] 20 mg PO DAILY 01/17/16 [History] Metoprolol Tartrate [Lopressor] 50 mg PO QPM 01/17/16 [History] Potassium 99 mg PO DAILY 01/17/16 [History] Albuterol/Ipratropium [DuoNeb 3.0-0.5 MG/3 ML] 3 ml NEB Q6HRRT PRN #120 neb [Rx] Pravastatin Sodium 20 mg PO BEDTIME 05/31/18 [History] Warfarin [Coumadin] 6 mg PO .Monday05/31/18 [History] Past Medical History HEENT History: Reports: Impaired Vision Cardiovascular History: Reports: Afib, Hypertension, [place] Respiratory History: Reports: Asthma, COPD Gastrointestinal History: Reports: GERD Genitourinary History: Reports: Other (See Below) Other Genitourinary History: overactive bladder 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: Neurological History: Reports: CVA Psychiatric History: Reports: None Endocrine/Metabolic History: Reports: Obesity/BMI 30+ Hematologic History: Reports: Anticoagulation Therapy Oncologic (Cancer) History: Reports: Malignant Melanoma Dermatologic History: Reports: Eczema - Infectious Disease History Infectious Disease History: Reports: Chicken Pox, Helicobacter Pylori, Measles, Mumps - Past Surgical History HEENT Surgical History: Reports: Adenoidectomy, Cataract Surgery, Tonsillectomy GI Surgical History: Reports: Appendectomy Female Surgical History: Reports: Hysterectomy Other Musculoskeletal Surgeries/Procedures:: Back surg x2 Social & Family History - Family History Family Medical History: Unobtainable Cardiac: Reports: Heart Failure Respiratory: Reports: Asthma - Caffeine Use Caffeine Use: Reports: Coffee Other Caffeine Use: 1 cup of coffee a day. - Living Situation & Occupation Living situation: Reports: , Alone Occupation: Retired ED ROS GENERAL - Review of Systems Review Of Systems: Comprehensive ROS is negative, except as noted in HPI. ED EXAM, GENERAL - Physical Exam Exam: See Below Exam Limited By: No Limitations General Appearance: Alert, WD/WN, Mild Distress, Moderate Distress, Other ( discomfort) Ears: Hearing Grossly Normal Throat/Mouth: Normal Voice, No Airway Compromise Head: Atraumatic Neck: Non-Tender, Full Range of Motion Respiratory/Chest: Decreased Breath Sounds, Rales, Rhonchi Cardiovascular: Regular Rate, Rhythm GI/Abdominal: Soft, Non-Tender Neurological: Alert, Oriented, Normal Cognition, No Motor/Sensory Deficits Psychiatric: Flat Affect Skin Exam: Warm, Dry, Normal Color Lymphatic: No Adenopathy Course - Vital Signs Last Recorded V/S: Last Vital Signs Temp 37.4 C 09/11/19 17:47 Pulse 97 09/11/19 18:02 Resp 28 H 09/11/19 17:47 BP 182/90 H 09/11/19 17:47 Pulse Ox 100 09/11/19 18:02 - Orders/Labs/Meds Orders: Active Orders 24 hr Category Date Time Status EKG 12 Lead [EKG Documentation Completion] [RC] STAT Care 09/11/19 18:53 Ordered RT Aerosol Therapy [RC] ASDIRECTED Care 09/11/19 17:53 Active Chest 1V Frontal [CR] Urgent Exams 09/11/19 17:52 Taken CULTURE BLOOD [BC] Stat Lab 09/11/19 18:15 Received Labs: Laboratory Tests 09/11/19 09/11/19 09/11/19 Range/Units 18:15 18:15 18:15 WBC 8.3 (5.0-10.0) 10^3/uL RBC 3.73 L (4.2-5.4) 10^6/uL Hgb 11.6 L (12.0-16.0) g/dL Hct 35.7 L (37.0-47.0) % MCV 95.7 (80-100) fL MCH 31.1 (27.0-34.0) pg MCHC 32.5 L (33.0-35.0) g/dL Plt Count 259 (150-450) 10^3/uL Lymph % (Auto) 19.0 L (20.5-50.1) % [place] % (Auto) 7.2 (2-8) % Eos % (Auto) 7.0 H (1.0-3.0) % Add Manual Diff Yes Neutrophils % (Manual) 62 (42-75) % Band Neutrophils % 3 % Lymphocytes % (Manual) 20 (20-50) % Monocytes % (Manual) 8 (2-8) % Eosinophils % (Manual) 7 H (1-3) % Sodium 139 (135-145) mmol/L Potassium 3.7 (3.6-5.0) mmol/L Chloride 101 (101-111) mmol/L Carbon Dioxide 28.0 (21.0-31.0) mmol/L Anion Gap 13.7 BUN 15 (7-18) mg/dL Creatinine 0.7 (0.6-1.3) mg/dL Est Cr Clr Drug Dosing 45.63 mL/min Estimated GFR (MDRD) > 60 BUN/Creatinine Ratio 21.42 Glucose 130 H (74-105) mg/dL Lactic Acid 2.2 H* (0.5-2.0) mmol/L Calcium 8.8 (8.4-10.2) mg/dl Total Bilirubin 0.9 (0.2-1.0) mg/dL AST 15 (10-42) IU/L ALT 14 (10-60) IU/L Alkaline Phosphatase 57 (42-121) IU/L Troponin I 0.03 H* (0.00-0.02) ng/ml B-Natriuretic Peptide 366 H (0-100) pg/ml Total Protein 7.1 (6.7-8.2) g/dl Albumin 3.7 (3.2-5.5) g/dl Globulin 3.4 Albumin/Globulin Ratio 1.09 Meds: Medications Discontinued Medications Generic Name Dose Route Start Last Admin Trade Name Freq PRN Reason Stop Dose Admin Albuterol/Ipratropium 3 ml 09/11/19 17:53 09/11/19 18:02 Duoneb 3.0-0.5 Mg/3 Ml NEB 09/11/19 17:54 3 ml ONETIME ONE Administration - Re-Assessments/Exams Free Text/Narrative Re-Assessment/Exam: 09/11/19 18:[address] Gonzalez who kindly admitted pt to observation. Departure - Departure Time of Disposition: 18:56 Disposition: Refer to Observation Condition: Good Clinical Impression: Hypoxemia, Elevated troponin I level, Elevated brain natriuretic peptide (BNP) level Congestive heart failure Qualifiers: Heart failure type: unspecified Heart failure chronicity: acute Qualified Code( s): I50.9 - Heart failure, unspecified - Discharge Information Forms: ED Department Discharge Sepsis Event Note - Evaluation Sepsis Screening Result: Possible Sepsis Risk - Focused Exam Vital Signs: Vital Signs Temp Pulse Resp BP Pulse Ox Pulse Ox 09/11/19 18:02 97 100 09/11/19 17:47 37.4 C 101 H 28 H 182/90 H 96 Date Exam was Performed: 09/11/19 Time Exam was Performed: 18:55 - My Orders Last 24 Hours: My Active Orders 09/11/19 17:52 Chest 1V Frontal [CR] Urgent 09/11/19 17:53 RT Aerosol Therapy [RC] ASDIRECTED 09/11/19 18:15 CULTURE BLOOD [BC] Stat 09/11/19 18:53 EKG 12 Lead [EKG Documentation Completion] [RC] STAT - Assessment/Plan Last 24 Hours: My Active Orders 09/11/19 17:52 Chest 1V Frontal [CR] Urgent 09/11/19 17:53 RT Aerosol Therapy [RC] ASDIRECTED 09/11/19 18:15 CULTURE BLOOD [BC] Stat 09/11/19 18:53 EKG 12 Lead [EKG Documentation Completion] [RC] STAT
[2019-09-11] MEDS ORDERED: Albuterol/Ipratropium 3.0-0.5 MG/3 ML Neb Soln NEB ONE (17:53)
[2019-09-11 18:41] LABS: ANION GAP 13.7; CHLORIDE,CL 101 mmol/L (101-111); SODIUM,NA 139 mmol/L (135-145)
[2019-09-11] MEDS ORDERED: Albuterol/Ipratropium 3.0-0.5 MG/3 ML Neb Soln NEB PRN (20:06)
[2019-09-11] MEDS ORDERED: Temazepam 15 MG Cap PO PRN (20:10)
[2019-09-11] MEDS ORDERED: Ondansetron 4 MG Tab.DIS PO PRN (20:10)
--- NOTE | 2019-09-11 20:21 | PCM.HP ---
H&P History of Present Illness - General Date of Service: 09/11/19 Admit Problem/Dx: Admission Diagnosis/Problem Admission Diagnosis/Problem sob Source of Information: Patient, Family, Provider - History of Present Illness Initial Comments - Free Text/Narative: 88-year-old lady with a history of atrial fibrillation on anticoagulation, coronary artery disease, obstructive sleep apnea with BiPAP, COPD on nebulizers The patient is not using home oxygen The patient lives independently. Prior to the patient had an episode where she was treated for upper respiratory tract infection. The patient presented today at clinic and from there was sent to the emergency room with low oxygen saturations. The patient is complaining of increasing shortness of breath for 3 days. Associated with cough, yellow sputum. No associated fever. She did not hear wheezing She did not increase her nebulizer use. There is no sick contact She had no associated chest pain, no abdominal pain, has chronic lower extremity edema. Did not realize lately that she has more swelling than usual. The patient was noted to have hypoxemia in the emergency room. She was started on DuoNeb nebulizer and oxygen. The patient feels much better. - Related Data Allergies/Adverse Reactions: Allergies Allergy/AdvReac Type Severity Reaction Status Date / Time atorvastatin calcium Allergy Muscle Verified 09/11/19 19:31 [From Lipitor] Aches morphine Allergy Vomiting Verified 09/11/19 19:31 rosuvastatin calcium Allergy Muscle Verified 09/11/19 19:31 [From Crestor] Aches CALCIUM CONTAINING COMPOUNDS Allergy Cannot Uncoded 09/11/19 19:31 Remember Home Medications: Home Meds Losartan [Cozaar] 50 mg PO DAILY 01/13/14 [History] Metoprolol Tartrate [Lopressor] 100 mg PO QAM 01/13/14 [History] Omeprazole 20 mg PO DAILY 01/13/14 [History] Warfarin Sodium 3 mg PO .SASUMOWETHFR 01/13/14 [History] amLODIPine Besylate [Amlodipine Besylate] 5 mg PO DAILY 01/13/14 [History] Calcium Carb, Citrate/Vit D3 [Citracal + D ER] 1 tab PO DAILY 03/09/15 [History] Cholecalciferol (Vitamin D3) [Vitamin D3] 1,000 unit PO DAILY 03/09/15 [History] [place]-3 Fatty Acids [[place]-3] 1 cap PO BID 03/09/15 [History] Oxybutynin [Oxybutynin ER] 10 mg PO DAILY PRN 03/09/15 [History] Ascorbic Acid 500 mg PO DAILY 04/07/15 [History] Fluticasone Propionate [Flonase] 2 spray NASBOTH DAILY 04/07/15 [History] Nitroglycerin [Nitrostat] 1 tab SL ASDIRECTED PRN 04/07/15 [History] Aspirin [Ecotrin EC] 81 mg PO DAILY 01/17/16 [History] Furosemide [Lasix] 20 mg PO DAILY 01/17/16 [History] Metoprolol Tartrate [Lopressor] 50 mg PO QPM 01/17/16 [History] Potassium 99 mg PO DAILY 01/17/16 [History] Albuterol/Ipratropium [DuoNeb 3.0-0.5 MG/3 ML] 3 ml NEB Q6HRRT PRN #120 neb [Rx] Pravastatin Sodium 20 mg PO BEDTIME 05/31/18 [History] Warfarin [Coumadin] 6 mg PO .Monday05/31/18 [History] Acetaminophen [Tylenol Extra Strength] 1,000 mg PO Q6H PRN 09/11/19 [History] Past Medical History HEENT History: Reports: Impaired Vision Cardiovascular History: Reports: Afib, Hypertension, [place] Respiratory History: Reports: Asthma, COPD Gastrointestinal History: Reports: GERD Genitourinary History: Reports: Other (See Below) Other Genitourinary History: overactive bladder 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: Neurological History: Reports: CVA Psychiatric History: Reports: None Endocrine/Metabolic History: Reports: Obesity/BMI 30+ Hematologic History: Reports: Anticoagulation Therapy Immunologic History: Reports: None Oncologic (Cancer) History: Reports: Malignant Melanoma Dermatologic History: Reports: Eczema - Infectious Disease History Infectious Disease History: Reports: Chicken Pox, Helicobacter Pylori, Measles, Mumps - Past Surgical History HEENT Surgical History: Reports: Adenoidectomy, Cataract Surgery, Tonsillectomy GI Surgical History: Reports: Appendectomy Female Surgical History: Reports: Hysterectomy Other Musculoskeletal Surgeries/Procedures:: Back surg x2 Social & Family History - Family History Family Medical History: Unobtainable Cardiac: Reports: Heart Failure Respiratory: Reports: Asthma - Tobacco Use Smoking Status *Q: Never Smoker Second Hand Smoke Exposure: No - Caffeine Use Caffeine Use: Reports: Coffee Other Caffeine Use: 1 cup of coffee a day. - Recreational Drug Use Recreational Drug Use: No - Living Situation & Occupation Living situation: Reports: , Alone Occupation: Retired H&P Review of Systems - Review of Systems: Review Of Systems: See Below General: Reports: Weakness. Denies: Fever Pulmonary: Reports: Shortness of Breath, Cough, Sputum. Denies: Wheezing, Pleuritic Chest Pain, Hemoptysis Cardiovascular: Reports: Edema. Denies: Chest Pain, Palpitations Gastrointestinal: Denies: Abdominal Pain Psychiatric: Denies: Confusion Neurological: Reports: Headache Exam - Exam Exam: See Below - Vital Signs Vital Signs: Last Vital Signs Temp 37.4 C 09/11/19 17:47 Pulse 97 09/11/19 18:02 Resp 28 H 09/11/19 17:47 BP 182/90 H 09/11/19 17:47 Pulse Ox 100 09/11/19 18:02 Weight: 113.398 kg - Exam Quality Assessment: Supplemental Oxygen General: Alert, Oriented Neck: Supple Lungs: Normal Respiratory Effort, Decreased Breath Sounds. No: Rales, Wheezing Cardiovascular: Irregular Rhythm. No: Tachycardia GI/Abdominal Exam: Normal Bowel Sounds, Soft, Non-Tender, Other (Obese) Extremities: Pedal Edema (1+ bilateral) Skin: Warm, Dry Neuro Extensive - Mental Status: Alert, Oriented x3 Psychiatric: Alert, Normal Affect, Normal Mood - Patient Data Lab Results Last 24 hrs: Laboratory Results - last 24 hr 09/11/19 09/11/19 09/11/19 Range/Units 18:15 18:15 18:15 WBC 8.3 (5.0-10.0) 10^3/uL RBC 3.73 L (4.2-5.4) 10^6/uL Hgb 11.6 L (12.0-16.0) g/dL Hct 35.7 L (37.0-47.0) % MCV 95.7 (80-100) fL MCH 31.1 (27.0-34.0) pg MCHC 32.5 L (33.0-35.0) g/dL Plt Count 259 (150-450) 10^3/uL Lymph % (Auto) 19.0 L (20.5-50.1) % [place] % (Auto) 7.2 (2-8) % Eos % (Auto) 7.0 H (1.0-3.0) % Add Manual Diff Yes Neutrophils % (Manual) 62 (42-75) % Band Neutrophils % 3 % Lymphocytes % (Manual) 20 (20-50) % Monocytes % (Manual) 8 (2-8) % Eosinophils % (Manual) 7 H (1-3) % Sodium 139 (135-145) mmol/L Potassium 3.7 (3.6-5.0) mmol/L Chloride 101 (101-111) mmol/L Carbon Dioxide 28.0 (21.0-31.0) mmol/L Anion Gap 13.7 BUN 15 (7-18) mg/dL Creatinine 0.7 (0.6-1.3) mg/dL Est Cr Clr Drug Dosing 45.63 mL/min Estimated GFR (MDRD) > 60 BUN/Creatinine Ratio 21.42 Glucose 130 H (74-105) mg/dL Lactic Acid 2.2 H* (0.5-2.0) mmol/L Calcium 8.8 (8.4-10.2) mg/dl Total Bilirubin 0.9 (0.2-1.0) mg/dL AST 15 (10-42) IU/L ALT 14 (10-60) IU/L Alkaline Phosphatase 57 (42-121) IU/L Troponin I 0.03 H* (0.00-0.02) ng/ml B-Natriuretic Peptide 366 H (0-100) pg/ml Total Protein 7.1 (6.7-8.2) g/dl Albumin 3.7 (3.2-5.5) g/dl Globulin 3.4 Albumin/Globulin Ratio 1.09 Result Diagrams: 09/11/19 18:15 09/11/19 18:15 - Problem List (1) Acute respiratory failure SNOMED Code(s): 44304279 ICD Code: J96.00 - ACUTE RESPIRATORY FAILURE, UNSP W HYPOXIA OR HYPERCAPNIA Status: Acute Priority: High Current Visit: No Qualifiers: Respiratory failure complication: hypoxia Qualified Code(s): J96.01 - Acute respiratory failure with hypoxia (2) Congestive heart failure SNOMED Code(s): 72499597 ICD Code: I50.9 - HEART FAILURE, UNSPECIFIED Status: Acute Current Visit : No Qualifiers: Heart failure type: unspecified Heart failure chronicity: acute Qualified Code(s): I50.9 - Heart failure, unspecified (3) Afib SNOMED Code(s): 89560223 ICD Code: I48.91 - UNSPECIFIED ATRIAL FIBRILLATION Status: Chronic Priority: Medium Current Visit: No (4) Anticoagulant therapy SNOMED Code(s): 600255189 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 Status: Chronic Priority: Low Current Visit: No (5) COPD (chronic obstructive pulmonary disease) SNOMED Code(s): 60096898 ICD Code: J44.9 - CHRONIC OBSTRUCTIVE PULMONARY DISEASE, UNSPECIFIED Status : Chronic Priority: Medium Current Visit: No Qualifiers: COPD type: unspecified COPD Qualified Code(s): J44.9 - Chronic obstructive pulmonary disease, unspecified (6) Chronic anticoagulation SNOMED Code(s): 335621377 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 Status: Chronic Priority: Low Current Visit: No (7) COPD exacerbation SNOMED Code(s): 255683512, 988018836 ICD Code: J44.1 - CHRONIC OBSTRUCTIVE PULMONARY DISEASE W (ACUTE) EXACERBATION Status: Suspected Priority: Medium Current Visit: No Problem List Initiated/Reviewed/Updated: Yes Orders Last 24hrs: Active Orders 24 hr Category Date Time Status Admission Diagnosis [ADT] Stat ADT 09/11/19 18:57 Ordered Admission Diagnosis [ADT] Stat ADT 09/11/19 18:58 Ordered Admission Status [Patient Status] [ADT] Routine ADT 09/11/19 18:57 Active Admission Status [Patient Status] [ADT] Routine ADT 09/11/19 18:58 Active Antiembolic Devices [RC] PER UNIT ROUTINE Care 09/11/19 20:11 Ordered EKG 12 Lead [EKG Documentation Completion] [RC] STAT Care 09/11/19 18:53 Active Oxygen Therapy [RC] PRN Care 09/11/19 20:10 Ordered Peripheral IV Care [RC] . DIRECTED Care 09/11/19 20:11 Ordered RT Aerosol Therapy [RC] ASDIRECTED Care 09/11/19 17:53 Active RT Aerosol Therapy [RC] ASDIRECTED Care 09/11/19 20:09 Ordered Up With Assistance [RC] ASDIRECTED Care 09/11/19 20:10 Ordered VTE/DVT Education [RC] PER UNIT ROUTINE Care 09/11/19 20:10 Ordered Vital Signs [RC] Q4H Care 09/11/19 20:10 Ordered Regular Diet [DIET] Diet 09/11/19 Breakfast Ordered Chest 1V Frontal [CR] Urgent Exams 09/11/19 17:52 Taken B-TYPE NATRIURETIC PEPTIDE,BNP [CHEM] AM Lab 09/13/19 05:11 Ordered BASIC METABOLIC PANEL,BMP [CHEM] AM Lab 09/12/19 05:15 Ordered CBC WITH AUTO DIFF [HEME] AM Lab 09/12/19 05:15 Ordered CULTURE BLOOD [BC] Stat Lab 09/11/19 18:15 Received CULTURE BLOOD [BC] Timed Lab 09/11/19 22:00 Ordered CULTURE SPUTUM + SMEAR [RM] Routine Lab 09/11/19 19:58 Ordered INR,PT,PROTHROMBIN TIME [COAG] AM Lab 09/12/19 05:11 Ordered INR,PT,PROTHROMBIN TIME [COAG] AM Lab 09/13/19 05:11 Ordered INR,PT,PROTHROMBIN TIME [COAG] AM Lab 09/14/19 05:11 Ordered INR,PT,PROTHROMBIN TIME [COAG] AM Lab 09/15/19 05:11 Ordered INR,PT,PROTHROMBIN TIME [COAG] AM Lab 09/16/19 05:11 Ordered INR,PT,PROTHROMBIN TIME [COAG] AM Lab 09/17/19 05:11 Ordered INR,PT,PROTHROMBIN TIME [COAG] Routine Lab 09/11/19 20:08 Ordered LACTIC ACID [CHEM] Timed Lab 09/11/19 22:00 Ordered MAGNESIUM [CHEM] AM Lab 09/12/19 05:11 Ordered PHOSPHORUS [CHEM] AM Lab 09/12/19 05:11 Ordered TROPONIN I [CHEM] AM Lab 09/12/19 05:11 Ordered Acetaminophen [Tylenol] Med 09/11/19 20:10 Ordered 650 mg PO Q4H PRN Albuterol/Ipratropium [DuoNeb 3.0-0.5 MG/3 ML] Med 09/11/19 20:06 Ordered 3 ml NEB Q2H PRN Albuterol/Ipratropium [DuoNeb 3.0-0.5 MG/3 ML] Med 09/12/19 01:00 Ordered 3 ml NEB Q6HRRT Aspirin [Halfprin] Med 09/12/19 09:00 Ordered 81 mg PO DAILY Azithromycin [Zithromax] 500 mg Med 09/11/19 20:00 Ordered Sodium Chloride 0.9% [Normal Saline] 250 ml IV Q24H Budesonide [Pulmicort] Med 09/12/19 07:00 Ordered 0.5 mg NEB BIDRT Docusate Sodium [Colace] Med 09/11/19 20:10 Ordered 100 mg PO BID PRN Furosemide [Lasix] Med 09/11/19 21:00 Ordered 20 mg IVPUSH BID Losartan [Cozaar] Med 09/12/19 09:00 Ordered 50 mg PO DAILY Metoprolol Tartrate Med 09/12/19 09:00 Ordered 100 mg PO QAM Metoprolol Tartrate [Lopressor] Med 09/11/19 20:15 Ordered 50 mg PO QPM Omeprazole Med 09/12/19 09:00 Ordered 20 mg PO DAILY Ondansetron [Zofran ODT] Med 09/11/19 20:10 Ordered 4 mg PO Q4H PRN Oxybutynin [Oxybutynin ER] Med 09/12/19 09:00 Ordered 10 mg PO DAILY Pravastatin [Pravachol] Med 09/11/19 21:00 Ordered 20 mg PO BEDTIME Sodium Chloride 0.9% [Saline Flush] Med 09/11/19 20:10 Ordered 10 ml FLUSH ASDIRECTED PRN Temazepam [Restoril] Med 09/11/19 20:10 Ordered 15 mg PO BEDTIME PRN Warfarin [Coumadin] Med 09/11/19 20:08 Once 3 mg PO ONETIME ONE amLODIPine [Norvasc] Med 09/12/19 09:00 Ordered 5 mg PO DAILY cefTRIAXone [Rocephin] 1 gm Med 09/11/19 20:00 Ordered Sodium Chloride 0.9% [Normal Saline] 50 ml IV Q24H Antiembolic Hose [OM.PC] Per Unit Routine Oth 09/11/19 20:11 Ordered Blood Culture x2 Reflex Set [OM.PC] Stat Oth 09/11/19 19:57 Ordered Peripheral IV Insertion Adult [OM.PC] Routine Oth 09/11/19 20:10 Ordered Saline Lock Insert [OM.PC] Routine Oth 09/11/19 20:10 Ordered Resuscitation Status Routine Resus Stat 09/11/19 20:10 Ordered Medication Orders Albuterol/Ipratropium (Duoneb 3.0-0.5 Mg/3 Ml) 3 ml NEB Q2H PRN PRN Reason: Wheezing Albuterol/Ipratropium (Duoneb 3.0-0.5 Mg/3 Ml) 3 ml NEB Q6HRRT [facility] Amlodipine Besylate (Norvasc) 5 mg PO DAILY [facility] Aspirin (Halfprin) 81 mg PO DAILY [facility] Budesonide (Pulmicort) 0.5 mg NEB BIDRT [facility] Furosemide (Lasix) 20 mg IVPUSH BID [facility] Azithromycin 500 mg/ Sodium (Chloride) 250 mls @ 250 mls/hr IV Q24H [facility] Ceftriaxone Sodium 1 gm/ (Sodium Chloride) 50 mls @ 50 mls/hr IV Q24H [facility] Losartan Potassium (Cozaar) 50 mg PO DAILY [facility] Metoprolol Tartrate (Lopressor) 50 mg PO QPM [facility] Non-Formulary Medication (Metoprolol Tartrate) 100 mg PO QAM [facility] Non-Formulary Medication (Oxybutynin [Oxybutynin Er]) 10 mg PO DAILY [facility] Omeprazole (Omeprazole) 20 mg PO DAILY [facility] Pravastatin Sodium (Pravachol) 20 mg PO BEDTIME [facility] Warfarin Sodium (Coumadin) 3 mg PO ONETIME ONE Stop: 09/11/19 20:09 Assessment/Plan Comment:: EKG per my reading shows atrial fibrillation with lateral T-wave inversions Chest x-ray per reading "cardiomegaly and pulmonary vascular prominence consistent with volume overload or congestive heart failure" The patient is morbidly obese and it is difficult to evaluate chest x-ray. 88 years old lady who presented with increasing shortness of breath. She is complaining of cough, yellow sputum. She did not have wheezing but improved after nebulizer She was noted to have hypoxemia and lower extremity edema on examination. Acute hypoxemic respiratory failure We will supplement oxygen and taper as possible Concern for acute bronchitis No apparent pneumonia on chest x-ray We will obtain blood culture, sputum culture Start empirical treatment with azithromycin and Rocephin Elevated lactic acid I doubt sepsis We'll repeat lactic acid Acute congestive heart failure Likely secondary to diastolic dysfunction Last echocardiogram November 2015 showed an ejection fraction about 60% I will change the Lasix to IV Increase dose Continue beta florentin, ARB, Repeat troponin Monitor on telemetry Atrial fibrillation Continue metoprolol for rate control Anticoagulation for atrial fibrillation Continue Coumadin Adjust Coumadin dose for target INR of 2-3 Likely need adjustment with antibiotics Obstructive sleep apnea Continue BiPAP dvt prophylaxis with coumadin
[2019-09-11] MEDS ORDERED: Azithromycin 500 MG Vial ONE (20:38)
[2019-09-11] MEDS: cefTRIAXone 1 GM in Sodium Chloride 0.9% 50 ML IV SCH (20:47)
[2019-09-11] MEDS: Metoprolol Tartrate 50 MG Tab PO SCH (20:49)
[2019-09-11] MEDS: Furosemide 20 MG/2 ML VIAL IVPUSH SCH (20:50)
[2019-09-11] MEDS: Pravastatin 20 MG Tab PO SCH (20:50)
[2019-09-11] MEDS: Azithromycin 500 MG in Sodium Chloride 0.9% 250 ML IV SCH (21:37)
[2019-09-11] MEDS: Acetaminophen 325 MG Tab PO PRN (22:45)
[2019-09-12] MEDS: Albuterol/Ipratropium 3.0-0.5 MG/3 ML Neb Soln NEB SCH ×5 (01:03→23:35)
[2019-09-12 07:07] LABS: ANION GAP 13.5; CHLORIDE,CL 103 mmol/L (101-111); SODIUM,NA 142 mmol/L (135-145)
[2019-09-12] MEDS: Omeprazole 20 MG Cap.CR PO SCH ×2 (07:40→08:54)
[2019-09-12] MEDS: Budesonide 0.5 MG/2 ML Neb Susp NEB SCH ×2 (07:49→18:27)
[2019-09-12] MEDS: amLODIPine 5 MG Tab PO SCH (08:51)
[2019-09-12] MEDS: Metoprolol Tartrate 50 MG Tab PO SCH ×2 (08:52→20:41)
[2019-09-12] MEDS: Losartan 50 MG Tab PO SCH (08:52)
[2019-09-12] MEDS: Oxybutynin 5 MG Tab.ER PO SCH (08:52)
[2019-09-12] MEDS: Aspirin 81 MG Tab.EC PO SCH (08:53)
[2019-09-12] MEDS: Furosemide 20 MG/2 ML VIAL IVPUSH SCH ×2 (08:54→18:54)
[2019-09-12] MEDS: Sodium Chloride 0.9% 10 ML Syringe FLUSH PRN ×4 (08:55→21:24)
[2019-09-12] MEDS ORDERED: Potassium Chloride 10 MEQ Tab.ER PO ONE ×2 (10:43→13:15)
--- NOTE | 2019-09-12 11:36 | PCM.PN ---
- General Info Date of Service: 09/12/19 Admission Dx/Problem (Free Text): Admission Diagnosis/Problem Admission Diagnosis/Problem sob Subjective Update: continues to have mod sob, worse with activity started prior to admission no associated cp urinating well tele: controlled afib Functional Status: Reports: Tolerating Diet, Ambulating - Review of Systems Pulmonary: Reports: Shortness of Breath Cardiovascular: Reports: Edema. Denies: Chest Pain Gastrointestinal: Denies: Abdominal Pain Genitourinary: Denies: Dysuria Psychiatric: Denies: Confusion - Patient Data Vitals - Most Recent: Last Vital Signs Temp 36.6 C 09/12/19 11:29 Pulse 80 09/12/19 11:29 Resp 20 09/12/19 11:29 BP 143/84 H 09/12/19 11:29 Pulse Ox 94 L 09/12/19 11:29 Weight - Most Recent: 113.171 kg I&O - Last 24 Hours: Intake & Output 09/11/19 09/12/19 09/12/19 22:59 06:59 14:59 Intake Total 750 510 120 Output Total 1000 Balance -250 510 120 Lab Results Last 24 Hours: Laboratory Results - last 24 hr 09/11/19 09/11/19 09/11/19 Range/Units 18:15 18:15 18:15 WBC 8.3 (5.0-10.0) 10^3/uL RBC 3.73 L (4.2-5.4) 10^6/uL Hgb 11.6 L (12.0-16.0) g/dL Hct 35.7 L (37.0-47.0) % MCV 95.7 (80-100) fL MCH 31.1 (27.0-34.0) pg MCHC 32.5 L (33.0-35.0) g/dL Plt Count 259 (150-450) 10^3/uL Neut % (Auto) (42.2-75.2) % Lymph % (Auto) 19.0 L (20.5-50.1) % [place] % (Auto) 7.2 (2-8) % Eos % (Auto) 7.0 H (1.0-3.0) % Add Manual Diff Yes Neutrophils % (Manual) 62 (42-75) % Band Neutrophils % 3 % Lymphocytes % (Manual) 20 (20-50) % Monocytes % (Manual) 8 (2-8) % Eosinophils % (Manual) 7 H (1-3) % PT (9.0-12.0) SEC INR (0.9-1.2) Sodium 139 (135-145) mmol/L Potassium 3.7 (3.6-5.0) mmol/L Chloride 101 (101-111) mmol/L Carbon Dioxide 28.0 (21.0-31.0) mmol/L Anion Gap 13.7 BUN 15 (7-18) mg/dL Creatinine 0.7 (0.6-1.3) mg/dL Est Cr Clr Drug Dosing 45.63 mL/min Estimated GFR (MDRD) > 60 BUN/Creatinine Ratio 21.42 Glucose 130 H (74-105) mg/dL Lactic Acid 2.2 H* (0.5-2.0) mmol/L Calcium 8.8 (8.4-10.2) mg/dl Phosphorus (2.5-4.6) mg/dL Magnesium (1.8-2.5) mg/dL Total Bilirubin 0.9 (0.2-1.0) mg/dL AST 15 (10-42) IU/L ALT 14 (10-60) IU/L Alkaline Phosphatase 57 (42-121) IU/L Troponin I 0.03 H* (0.00-0.02) ng/ml B-Natriuretic Peptide 366 H (0-100) pg/ml Total Protein 7.1 (6.7-8.2) g/dl Albumin 3.7 (3.2-5.5) g/dl Globulin 3.4 Albumin/Globulin Ratio 1.09 09/11/19 09/11/19 09/12/19 Range/Units 18:15 22:05 06:30 WBC (5.0-10.0) 10^3/uL RBC (4.2-5.4) 10^6/uL Hgb (12.0-16.0) g/dL Hct (37.0-47.0) % MCV (80-100) fL MCH (27.0-34.0) pg MCHC (33.0-35.0) g/dL Plt Count (150-450) 10^3/uL Neut % (Auto) (42.2-75.2) % Lymph % (Auto) (20.5-50.1) % [place] % (Auto) (2-8) % Eos % (Auto) (1.0-3.0) % Add Manual Diff Neutrophils % (Manual) (42-75) % Band Neutrophils % % Lymphocytes % (Manual) (20-50) % Monocytes % (Manual) (2-8) % Eosinophils % (Manual) (1-3) % PT 32.0 H D 25.2 H (9.0-12.0) SEC INR 3.3 H 2.6 H (0.9-1.2) Sodium (135-145) mmol/L Potassium (3.6-5.0) mmol/L Chloride (101-111) mmol/L Carbon Dioxide (21.0-31.0) mmol/L Anion Gap BUN (7-18) mg/dL Creatinine (0.6-1.3) mg/dL Est Cr Clr Drug Dosing mL/min Estimated GFR (MDRD) BUN/Creatinine Ratio Glucose (74-105) mg/dL Lactic Acid 3.5 H* (0.5-2.0) mmol/L Calcium (8.4-10.2) mg/dl Phosphorus (2.5-4.6) mg/dL Magnesium (1.8-2.5) mg/dL Total Bilirubin (0.2-1.0) mg/dL AST (10-42) IU/L ALT (10-60) IU/L Alkaline Phosphatase (42-121) IU/L Troponin I (0.00-0.02) ng/ml B-Natriuretic Peptide (0-100) pg/ml Total Protein (6.7-8.2) g/dl Albumin (3.2-5.5) g/dl Globulin Albumin/Globulin Ratio 09/12/19 09/12/19 09/12/19 Range/Units 06:30 06:30 06:30 WBC 6.1 (5.0-10.0) 10^3/uL RBC 3.43 L (4.2-5.4) 10^6/uL Hgb 10.6 L (12.0-16.0) g/dL Hct 33.3 L (37.0-47.0) % MCV 97.1 (80-100) fL MCH 30.9 (27.0-34.0) pg MCHC 31.8 L (33.0-35.0) g/dL Plt Count 211 (150-450) 10^3/uL Neut % (Auto) (42.2-75.2) % Lymph % (Auto) (20.5-50.1) % [place] % (Auto) (2-8) % Eos % (Auto) (1.0-3.0) % Add Manual Diff Yes Neutrophils % (Manual) 56 (42-75) % Band Neutrophils % 3 % Lymphocytes % (Manual) 27 (20-50) % Monocytes % (Manual) 7 (2-8) % Eosinophils % (Manual) 7 H (1-3) % PT (9.0-12.0) SEC INR (0.9-1.2) Sodium 142 (135-145) mmol/L Potassium 3.5 L (3.6-5.0) mmol/L Chloride 103 (101-111) mmol/L Carbon Dioxide 29.0 (21.0-31.0) mmol/L Anion Gap 13.5 BUN 14 (7-18) mg/dL Creatinine 0.6 (0.6-1.3) mg/dL Est Cr Clr Drug Dosing 53.23 mL/min Estimated GFR (MDRD) > 60 BUN/Creatinine Ratio Glucose 95 (74-105) mg/dL Lactic Acid 2.2 H* (0.5-2.0) mmol/L Calcium 8.5 (8.4-10.2) mg/dl Phosphorus 3.5 (2.5-4.6) mg/dL Magnesium 1.7 L (1.8-2.5) mg/dL Total Bilirubin (0.2-1.0) mg/dL AST (10-42) IU/L ALT (10-60) IU/L Alkaline Phosphatase (42-121) IU/L Troponin I 0.02 (0.00-0.02) ng/ml B-Natriuretic Peptide (0-100) pg/ml Total Protein (6.7-8.2) g/dl Albumin (3.2-5.5) g/dl Globulin Albumin/Globulin Ratio Med Orders - Current: Current Medications Acetaminophen (Tylenol) 650 mg PO Q4H PRN PRN Reason: Pain (Mild 1-3)/fever Last Admin: 01/08/20 22:45 Dose: 650 mg Albuterol/Ipratropium (Duoneb 3.0-0.5 Mg/3 Ml) 3 ml NEB Q2H PRN PRN Reason: Wheezing Albuterol/Ipratropium (Duoneb 3.0-0.5 Mg/3 Ml) 3 ml NEB Q6HRRT [facility] Last Admin: 09/12/19 07:47 Dose: 3 ml Amlodipine Besylate (Norvasc) 5 mg PO DAILY [facility] Last Admin: 09/12/19 08:51 Dose: 5 mg Aspirin (Halfprin) 81 mg PO DAILY [facility] Last Admin: 09/12/19 08:53 Dose: 81 mg Budesonide (Pulmicort) 0.5 mg NEB BIDRT [facility] Last Admin: 09/12/19 07:49 Dose: 0.5 mg Docusate Sodium (Colace) 100 mg PO BID PRN PRN Reason: Constipation Furosemide (Lasix) 20 mg IVPUSH BID [facility] Last Admin: 09/12/19 08:54 Dose: 20 mg Azithromycin 500 mg/ Sodium (Chloride) 250 mls @ 250 mls/hr IV Q24H [facility] Last Admin: 09/11/19 21:37 Dose: 250 mls/hr Ceftriaxone Sodium 1 gm/ (Sodium Chloride) 50 mls @ 50 mls/hr IV Q24H [facility] Last Admin: 09/11/19 20:47 Dose: 50 mls/hr Losartan Potassium (Cozaar) 50 mg PO DAILY [facility] Last Admin: 09/12/19 08:52 Dose: 50 mg Magnesium Oxide (Magnesium Oxide) 250 mg PO BIDM [facility] Stop: 09/12/19 18:01 Metoprolol Tartrate (Lopressor) 100 mg PO QAM [facility] Last Admin: 09/12/19 08:52 Dose: 100 mg Metoprolol Tartrate (Lopressor) 50 mg PO 1999 [facility] Last Admin: 09/11/19 20:49 Dose: 50 mg Omeprazole (Omeprazole) 20 mg PO DAILY [facility] Last Admin: 09/12/19 08:54 Dose: Not Given Ondansetron HCl (Zofran Odt) 4 mg PO Q4H PRN PRN Reason: nausea, able to take PO Oxybutynin Chloride (Oxybutynin Er) 10 mg PO DAILY [facility] Last Admin: 09/12/19 08:52 Dose: 10 mg Potassium Chloride (Klor-Con 10) 20 meq PO ONETIME ONE Stop: 09/12/19 10:44 Potassium Chloride (Klor-Con 10) 20 meq PO WITHBREAKFAST [facility] Pravastatin Sodium (Pravachol) 20 mg PO BEDTIME [facility] Last Admin: 09/11/19 20:50 Dose: 20 mg Sodium Chloride (Saline Flush) 10 ml FLUSH ASDIRECTED PRN PRN Reason: Keep Vein Open Last Admin: 09/12/19 08:55 Dose: 10 ml Temazepam (Restoril) 15 mg PO BEDTIME PRN PRN Reason: Sleep Warfarin Sodium (Pharmacy To Dose - Warfarin) 1 dose .XX ASDIRECTED [facility]IM[facility] Discontinued Medications Albuterol/Ipratropium (Duoneb 3.0-0.5 Mg/3 Ml) 3 ml NEB ONETIME ONE Stop: 09/11/19 17:54 Last Admin: 09/11/19 18:02 Dose: 3 ml Azithromycin (Zithromax) Confirm Administered Dose 500 mg .ROUTE .STK-MED ONE Stop: 09/11/19 20:39 Last Admin: 09/11/19 20:53 Dose: Not Given Warfarin Sodium (Coumadin) 3 mg PO ONETIME ONE Stop: 09/11/19 20:09 Last Admin: 09/12/19 11:31 Dose: Not Given - Exam Quality Assessment: Supplemental Oxygen General: Alert, Oriented Neck: Supple Lungs: Decreased Breath Sounds, Wheezing Cardiovascular: Regular Rate, Regular Rhythm GI/Abdominal Exam: Normal Bowel Sounds, Soft, Non-Tender Extremities: Pedal Edema Neurological: No New Focal Deficit Psy/Mental Status: Alert, Normal Affect, Normal Mood Sepsis Event Note - Evaluation Sepsis Screening Result: No Definite Risk - Focused Exam Vital Signs: Vital Signs Temp Pulse Pulse Resp BP BP Pulse Ox 09/12/19 11:29 36.6 C 80 20 143/84 H 94 L 09/12/19 08:52 85 132/62 09/12/19 08:51 132/62 09/12/19 07:49 79 09/12/19 07:05 36.6 C 85 20 132/62 94 L Pulse Ox 09/12/19 11:29 09/12/19 08:52 09/12/19 08:51 09/12/19 07:49 94 L 09/12/19 07:05 Date Exam was Performed: 09/12/19 Time Exam was Performed: 11:32 - Problem List & Annotations (1) Acute respiratory failure SNOMED Code(s): 81204970 Code(s): J96.00 - ACUTE RESPIRATORY FAILURE, UNSP W HYPOXIA OR HYPERCAPNIA Status: Acute Priority: High Current Visit: No Qualifiers: Respiratory failure complication: hypoxia Qualified Code(s): J96.01 - Acute respiratory failure with hypoxia (2) Congestive heart failure SNOMED Code(s): 66144145 Code(s): I50.9 - HEART FAILURE, UNSPECIFIED Status: Acute Current Visit: No Qualifiers: Heart failure type: unspecified Heart failure chronicity: acute Qualified Code(s): I50.9 - Heart failure, unspecified (3) Afib SNOMED Code(s): 13992460 Code(s): I48.91 - UNSPECIFIED ATRIAL FIBRILLATION Status: Chronic Priority: Medium Current Visit: No (4) Anticoagulant therapy SNOMED Code(s): 723026851 Code(s): Z79.01 - [facility] (CURRENT) USE OF ANTICOAGULANTS Status: Chronic Priority: Low Current Visit: No (5) COPD (chronic obstructive pulmonary disease) SNOMED Code(s): 04219443 Code(s): J44.9 - CHRONIC OBSTRUCTIVE PULMONARY DISEASE, UNSPECIFIED Status : Chronic Priority: Medium Current Visit: No Qualifiers: COPD type: unspecified COPD Qualified Code(s): J44.9 - Chronic obstructive pulmonary disease, unspecified (6) Chronic anticoagulation SNOMED Code(s): 441817617 Code(s): Z79.01 - [facility] (CURRENT) USE OF ANTICOAGULANTS Status: Chronic Priority: Low Current Visit: No (7) COPD exacerbation SNOMED Code(s): 174103744, 252985517 Code(s): J44.1 - CHRONIC OBSTRUCTIVE PULMONARY DISEASE W (ACUTE) EXACERBATION Status: Suspected Priority: Medium Current Visit: No - Problem List Review Problem List Initiated/Reviewed/Updated: Yes - My Orders Last 24 Hours: My Active Orders 09/11/19 19:57 Blood Culture x2 Reflex Set [OM.PC] Stat 09/11/19 19:58 CULTURE SPUTUM + SMEAR [RM] Routine 09/11/19 20:00 Azithromycin [Zithromax] 500 mg Sodium Chloride 0.9% [Normal Saline] 250 ml IV Q24H cefTRIAXone [Rocephin] 1 gm Sodium Chloride 0.9% [Normal Saline] 50 ml IV Q24H 09/11/19 20:06 Albuterol/Ipratropium [DuoNeb 3.0-0.5 MG/3 ML] 3 ml NEB Q2H PRN 09/11/19 20:09 RT Aerosol Therapy [RC] ASDIRECTED 09/11/19 20:10 Oxygen Therapy [RC] PRN Up With Assistance [RC] ASDIRECTED VTE/DVT Education [RC] PER UNIT ROUTINE Vital Signs [RC] 00,04,08,12,16,20 Acetaminophen [Tylenol] 650 mg PO Q4H PRN Docusate Sodium [Colace] 100 mg PO BID PRN Ondansetron [Zofran ODT] 4 mg PO Q4H PRN Sodium Chloride 0.9% [Saline Flush] 10 ml FLUSH ASDIRECTED PRN Temazepam [Restoril] 15 mg PO BEDTIME PRN Peripheral IV Insertion Adult [OM.PC] Routine Saline Lock Insert [OM.PC] Routine Resuscitation Status Routine 09/11/19 20:11 Antiembolic Devices [RC] PER UNIT ROUTINE Peripheral IV Care [RC] ,21 Antiembolic Hose [OM.PC] Per Unit Routine 09/11/19 20:15 Metoprolol Tartrate [Lopressor] 50 mg PO 199909/11/19 20:21 RT BiPAP/CPAP [RC] ASDIRECTED 09/11/19 21:00 Furosemide [Lasix] 20 mg IVPUSH BID Pravastatin [Pravachol] 20 mg PO BEDTIME 09/11/19 22:05 CULTURE BLOOD [BC] Timed 09/12/19 01:00 Albuterol/Ipratropium [DuoNeb 3.0-0.5 MG/3 ML] 3 ml NEB Q6HRRT 09/12/19 07:00 Budesonide [Pulmicort] 0.5 mg NEB BIDRT 09/12/19 09:00 Aspirin [Halfprin] 81 mg PO DAILY Losartan [Cozaar] 50 mg PO DAILY Metoprolol Tartrate [Lopressor] 100 mg PO QAM Omeprazole 20 mg PO DAILY Oxybutynin [Oxybutynin ER] 10 mg PO DAILY amLODIPine [Norvasc] 5 mg PO DAILY 09/12/19 10:43 Potassium Chloride [Klor-Con 10] 20 meq PO ONETIME ONE 09/12/19 11:00 Magnesium Oxide 250 mg PO BIDM 09/12/19 11:15 Pharmacy to Dose - Warfarin 1 dose .XX ASDIRECTED 09/12/19 11:30 Patient Status [ADT] Routine 09/13/19 05:11 B-TYPE NATRIURETIC PEPTIDE,BNP [CHEM] AM INR,PT,PROTHROMBIN TIME [COAG] AM 09/13/19 05:15 BASIC METABOLIC PANEL,BMP [CHEM] AM CBC WITH AUTO DIFF [HEME] AM 09/13/19 08:00 Potassium Chloride [Klor-Con 10] 20 meq PO WITHBREAKFAST 09/14/19 05:11 INR,PT,PROTHROMBIN TIME [COAG] AM 09/15/19 05:11 INR,PT,PROTHROMBIN TIME [COAG] AM 09/16/19 05:11 INR,PT,PROTHROMBIN TIME [COAG] AM 09/17/19 05:11 INR,PT,PROTHROMBIN TIME [COAG] AM - Plan Plan:: EKG per my reading shows atrial fibrillation with lateral T-wave inversions Chest x-ray per reading "cardiomegaly and pulmonary vascular prominence consistent with volume overload or congestive heart failure" The patient is morbidly obese and it is difficult to evaluate chest x-ray. 88 years old lady who presented with increasing shortness of breath. She is complaining of cough, yellow sputum. She did not have wheezing but improved after nebulizer She was noted to have hypoxemia and lower extremity edema on examination. Acute hypoxemic respiratory failure We will continue to supplement oxygen and taper as possible Concern for acute bronchitis No apparent pneumonia on chest x-ray pending blood culture, sputum culture cont empirical treatment with azithromycin and Rocephin Elevated -fluctuating - lactic acid I doubt sepsis Acute congestive heart failure Likely secondary to diastolic dysfunction Last echocardiogram November 2015 showed an ejection fraction about 60% cont IV Lasix add K supplement for hypokalemia Continue beta florentin, ARB, Repeat troponin Monitor on telemetry Atrial fibrillation Continue metoprolol for rate control Anticoagulation for atrial fibrillation Continue Coumadin Adjust Coumadin dose for target INR of 2-3 Likely need adjustment with antibiotics Obstructive sleep apnea Continue BiPAP at night dvt prophylaxis with coumadin
[2019-09-12] MEDS: cefTRIAXone 1 GM in Sodium Chloride 0.9% 50 ML IV SCH (20:30)
[2019-09-12] MEDS: Acetaminophen 325 MG Tab PO PRN (20:42)
[2019-09-12] MEDS: Docusate Sodium 100 MG Cap PO PRN (20:42)
[2019-09-12] MEDS: Pravastatin 20 MG Tab PO SCH (20:42)
[2019-09-12] MEDS: Azithromycin 500 MG in Sodium Chloride 0.9% 250 ML IV SCH (21:25)
[2019-09-13] MEDS: Albuterol/Ipratropium 3.0-0.5 MG/3 ML Neb Soln NEB SCH ×4 (02:31→17:38)
[2019-09-13] MEDS: Acetaminophen 325 MG Tab PO PRN ×2 (05:40→21:02)
[2019-09-13 07:01] LABS: ANION GAP 11.7; CHLORIDE,CL 102 mmol/L (101-111); SODIUM,NA 142 mmol/L (135-145)
[2019-09-13] MEDS: Budesonide 0.5 MG/2 ML Neb Susp NEB SCH ×2 (07:46→17:38)
[2019-09-13] MEDS: Omeprazole 20 MG Cap.CR PO SCH ×2 (07:49→08:29)
[2019-09-13] MEDS ORDERED: Potassium Chloride 10 MEQ Tab.ER PO SCH (08:00)
[2019-09-13] MEDS: Losartan 50 MG Tab PO SCH (08:27)
[2019-09-13] MEDS: Metoprolol Tartrate 50 MG Tab PO SCH ×2 (08:27→21:04)
[2019-09-13] MEDS: Oxybutynin 5 MG Tab.ER PO SCH (08:28)
[2019-09-13] MEDS: Aspirin 81 MG Tab.EC PO SCH (08:28)
[2019-09-13] MEDS: amLODIPine 5 MG Tab PO SCH (08:29)
[2019-09-13] MEDS: Sodium Chloride 0.9% 10 ML Syringe FLUSH PRN ×4 (08:30→23:38)
[2019-09-13] MEDS ORDERED: Furosemide 20 MG/2 ML VIAL IVPUSH SCH (09:00)
--- NOTE | 2019-09-13 10:10 | PCM.PN ---
- General Info Date of Service: 09/13/19 Admission Dx/Problem (Free Text): Admission Diagnosis/Problem Admission Diagnosis/Problem sob Subjective Update: continues to have mod sob, worse with activity has good uo, less edema sob started prior to admission no associated cp oxygen was increased to 3 l /min - Review of Systems Cardiovascular: Denies: Chest Pain Gastrointestinal: Denies: Abdominal Pain Genitourinary: Denies: Dysuria - Patient Data Vitals - Most Recent: Last Vital Signs Temp 36.9 C 09/13/19 08:00 Pulse 79 09/13/19 08:27 Resp 22 H 09/13/19 08:00 BP 144/75 H 09/13/19 08:29 Pulse Ox 96 09/13/19 08:00 Weight - Most Recent: 98.248 kg I&O - Last 24 Hours: Intake & Output 09/12/19 09/13/19 09/13/19 22:59 06:59 14:59 Intake Total 900 323 400 Output Total 1900 300 Balance -1000 23 400 Lab Results Last 24 Hours: Laboratory Results - last 24 hr 09/13/19 09/13/19 09/13/19 Range/Units 05:45 05:45 05:45 WBC 6.6 (5.0-10.0) 10^3/uL RBC 3.54 L (4.2-5.4) 10^6/uL Hgb 11.0 L (12.0-16.0) g/dL Hct 34.6 L (37.0-47.0) % MCV 97.7 (80-100) fL MCH 31.1 (27.0-34.0) pg MCHC 31.8 L (33.0-35.0) g/dL Plt Count 256 (150-450) 10^3/uL Lymph % (Auto) 24.7 (20.5-50.1) % [place] % (Auto) 9.8 H (2-8) % Eos % (Auto) 9.8 H (1.0-3.0) % Add Manual Diff Yes Neutrophils % (Manual) 57 (42-75) % Band Neutrophils % 2 % Lymphocytes % (Manual) 20 (20-50) % Monocytes % (Manual) 10 H (2-8) % Eosinophils % (Manual) 11 H (1-3) % PT 18.5 H (9.0-12.0) SEC INR 1.9 H (0.9-1.2) Sodium 142 (135-145) mmol/L Potassium 3.7 (3.6-5.0) mmol/L Chloride 102 (101-111) mmol/L Carbon Dioxide 32.0 H (21.0-31.0) mmol/L Anion Gap 11.7 BUN 17 (7-18) mg/dL Creatinine 0.8 (0.6-1.3) mg/dL Est Cr Clr Drug Dosing 39.92 mL/min Estimated GFR (MDRD) > 60 Glucose 108 H (74-105) mg/dL Calcium 8.8 (8.4-10.2) mg/dl B-Natriuretic Peptide 210 H (0-100) pg/ml [place] Results Last 24 Hours: Microbiology 09/12/19 09:21 Gram Stain - Final Sputum - Expectorated Sputum Culture - Preliminary Normal [place] 09/11/19 22:05 Aerobic Blood Culture - Preliminary Blood - Venous NO GROWTH AFTER 1 DAY Anaerobic Blood Culture - Preliminary NO GROWTH AFTER 1 DAY 09/11/19 18:15 Aerobic Blood Culture - Preliminary Blood NO GROWTH AFTER 1 DAY Anaerobic Blood Culture - Preliminary NO GROWTH AFTER 1 DAY Med Orders - Current: Current Medications Acetaminophen (Tylenol) 650 mg PO Q4H PRN PRN Reason: Pain (Mild 1-3)/fever Last Admin: 09/13/19 05:40 Dose: 650 mg Albuterol/Ipratropium (Duoneb 3.0-0.5 Mg/3 Ml) 3 ml NEB Q2H PRN PRN Reason: Wheezing Albuterol/Ipratropium (Duoneb 3.0-0.5 Mg/3 Ml) 3 ml NEB Q6HRRT [facility] Last Admin: 09/13/19 07:46 Dose: 3 ml Amlodipine Besylate (Norvasc) 5 mg PO DAILY [facility] Last Admin: 09/13/19 08:29 Dose: 5 mg Aspirin (Halfprin) 81 mg PO DAILY [facility] Last Admin: 09/13/19 08:28 Dose: 81 mg Budesonide (Pulmicort) 0.5 mg NEB BIDRT [facility] Last Admin: 09/13/19 07:46 Dose: 0.5 mg Docusate Sodium (Colace) 100 mg PO BID PRN PRN Reason: Constipation Last Admin: 09/12/19 20:42 Dose: 100 mg Furosemide (Lasix) 20 mg IVPUSH DAILY [facility] Azithromycin 500 mg/ Sodium (Chloride) 250 mls @ 250 mls/hr IV Q24H [facility] Last Infusion: 09/12/19 23:30 Dose: Infused Ceftriaxone Sodium 1 gm/ (Sodium Chloride) 50 mls @ 50 mls/hr IV Q24H [facility] Last Admin: 09/12/19 20:30 Dose: 50 mls/hr Losartan Potassium (Cozaar) 50 mg PO DAILY [facility] Last Admin: 09/13/19 08:27 Dose: 50 mg Metoprolol Tartrate (Lopressor) 100 mg PO QAM [facility] Last Admin: 09/13/19 08:27 Dose: 100 mg Metoprolol Tartrate (Lopressor) 50 mg PO 1999 [facility] Last Admin: 09/12/19 20:41 Dose: 50 mg Omeprazole (Omeprazole) 20 mg PO DAILY [facility] Last Admin: 09/13/19 08:29 Dose: Not Given Ondansetron HCl (Zofran Odt) 4 mg PO Q4H PRN PRN Reason: nausea, able to take PO Oxybutynin Chloride (Oxybutynin Er) 10 mg PO DAILY [facility] Last Admin: 09/13/19 08:28 Dose: 10 mg Potassium Chloride (Klor-Con 10) 20 meq PO WITHBREAKFAST [facility] Last Admin: 09/13/19 08:28 Dose: 20 meq Pravastatin Sodium (Pravachol) 20 mg PO BEDTIME [facility] Last Admin: 09/12/19 20:42 Dose: 20 mg Sodium Chloride (Saline Flush) 10 ml FLUSH ASDIRECTED PRN PRN Reason: Keep Vein Open Last Admin: 09/13/19 08:30 Dose: 10 ml Temazepam (Restoril) 15 mg PO BEDTIME PRN PRN Reason: Sleep Warfarin Sodium (Pharmacy To Dose - Warfarin) 1 dose .XX ASDIRECTED [facility] Warfarin Sodium (Coumadin) 3 mg PO ONETIME ONE Stop: 09/13/19 14:01 Discontinued Medications Albuterol/Ipratropium (Duoneb 3.0-0.5 Mg/3 Ml) 3 ml NEB ONETIME ONE Stop: 09/11/19 17:54 Last Admin: 09/11/19 18:02 Dose: 3 ml Azithromycin (Zithromax) Confirm Administered Dose 500 mg .ROUTE .STK-MED ONE Stop: 09/11/19 20:39 Last Admin: 09/11/19 20:53 Dose: Not Given Furosemide (Lasix) 20 mg IVPUSH BID [facility] Last Admin: 09/12/19 18:54 Dose: 20 mg Furosemide (Lasix) 20 mg IVPUSH BID@0900,1400 [facility] Last Admin: 09/13/19 08:29 Dose: 20 mg Magnesium Oxide (Magnesium Oxide) 250 mg PO BIDM [facility] Stop: 09/12/19 18:01 Last Admin: 09/12/19 18:27 Dose: 250 mg Potassium Chloride (Klor-Con 10) 20 meq PO ONETIME ONE Stop: 09/12/19 13:16 Last Admin: 09/12/19 13:18 Dose: 20 meq Warfarin Sodium (Coumadin) 3 mg PO ONETIME ONE Stop: 09/11/19 20:09 Last Admin: 09/12/19 11:31 Dose: Not Given Warfarin Sodium (Coumadin) 3 mg PO ONETIME ONE Stop: 09/12/19 14:01 Last Admin: 09/12/19 13:19 Dose: 3 mg - Exam General: Alert, Oriented Neck: Supple Lungs: Decreased Breath Sounds, Rhonchi, Wheezing Cardiovascular: Irregular Rhythm GI/Abdominal Exam: Normal Bowel Sounds, Soft, Non-Tender Extremities: Pedal Edema (trace) Skin: Warm, Dry Neurological: No New Focal Deficit Psy/Mental Status: Alert, Normal Affect, Normal Mood Sepsis Event Note - Evaluation Sepsis Screening Result: No Definite Risk - Focused Exam Vital Signs: Vital Signs Temp Pulse Pulse Resp BP BP Pulse Ox 09/13/19 08:29 144/75 H 09/13/19 08:27 79 144/75 H 09/13/19 08:00 36.9 C 79 22 H 144/75 H 96 09/13/19 07:46 78 09/13/19 05:30 36.7 C 78 24 H 152/70 H 94 L 09/12/19 23:37 72 09/12/19 23:30 36.9 C 72 24 H 112/50 L 93 L Pulse Ox 09/13/19 08:29 09/13/19 08:27 09/13/19 08:00 09/13/19 07:46 93 L 09/13/19 05:30 09/12/19 23:37 93 L 09/12/19 23:30 Date Exam was Performed: 09/13/19 Time Exam was Performed: 10:07 - Problem List & Annotations (1) Acute respiratory failure SNOMED Code(s): 84045451 Code(s): J96.00 - ACUTE RESPIRATORY FAILURE, UNSP W HYPOXIA OR HYPERCAPNIA Status: Acute Priority: High Current Visit: No Qualifiers: Respiratory failure complication: hypoxia Qualified Code(s): J96.01 - Acute respiratory failure with hypoxia (2) Congestive heart failure SNOMED Code(s): 09907218 Code(s): I50.9 - HEART FAILURE, UNSPECIFIED Status: Acute Current Visit: No Qualifiers: Heart failure type: unspecified Heart failure chronicity: acute Qualified Code(s): I50.9 - Heart failure, unspecified (3) Afib SNOMED Code(s): 20869226 Code(s): I48.91 - UNSPECIFIED ATRIAL FIBRILLATION Status: Chronic Priority: Medium Current Visit: No (4) Anticoagulant therapy SNOMED Code(s): 889343596 Code(s): Z79.01 - [employer] (CURRENT) USE OF ANTICOAGULANTS Status: Chronic Priority: Low Current Visit: No (5) COPD (chronic obstructive pulmonary disease) SNOMED Code(s): 30773307 Code(s): J44.9 - CHRONIC OBSTRUCTIVE PULMONARY DISEASE, UNSPECIFIED Status : Chronic Priority: Medium Current Visit: No Qualifiers: COPD type: unspecified COPD Qualified Code(s): J44.9 - Chronic obstructive pulmonary disease, unspecified (6) Chronic anticoagulation SNOMED Code(s): 206552659 Code(s): Z79.01 - [facility] (CURRENT) USE OF ANTICOAGULANTS Status: Chronic Priority: Low Current Visit: No (7) COPD exacerbation SNOMED Code(s): 462488591, [id number] Code(s): J44.1 - CHRONIC OBSTRUCTIVE PULMONARY DISEASE W (ACUTE) EXACERBATION Status: Suspected Priority: Medium Current Visit: No - Problem List Review Problem List Initiated/Reviewed/Updated: Yes - My Orders Last 24 Hours: My Active Orders 09/12/19 09:21 CULTURE SPUTUM + SMEAR [RM] Routine 09/12/19 11:15 Pharmacy to Dose - Warfarin 1 dose .XX ASDIRECTED 09/12/19 11:30 Patient Status [ADT] Routine 09/13/19 08:00 Potassium Chloride [Klor-Con 10] 20 meq PO WITHBREAKFAST 09/13/19 14:00 Warfarin [Coumadin] 3 mg PO ONETIME ONE 09/14/19 05:11 INR,PT,PROTHROMBIN TIME [COAG] AM 09/14/19 05:15 BASIC METABOLIC PANEL,BMP [CHEM] AM 09/14/19 09:00 Furosemide [Lasix] 20 mg IVPUSH DAILY 09/15/19 05:11 INR,PT,PROTHROMBIN TIME [COAG] AM 09/16/19 05:11 INR,PT,PROTHROMBIN TIME [COAG] AM 09/17/19 05:11 INR,PT,PROTHROMBIN TIME [COAG] AM - Plan Plan:: EKG per my reading shows atrial fibrillation with lateral T-wave inversions Chest x-ray per reading "cardiomegaly and pulmonary vascular prominence consistent with volume overload or congestive heart failure" The patient is morbidly obese and it is difficult to evaluate chest x-ray. 88 years old lady who presented with increasing shortness of breath. She is complaining of cough, yellow sputum. She did not have wheezing but improved after nebulizer She was noted to have hypoxemia and lower extremity edema on examination. Acute hypoxemic respiratory failure We will continue to supplement oxygen and taper as possible acute bronchitis No apparent pneumonia on chest x-ray pending blood culture, sputum culture cont empirical treatment with azithromycin and Rocephin Acute congestive heart failure Likely secondary to diastolic dysfunction Last echocardiogram November 2015 showed an ejection fraction about 60% edema improved decrease IV Lasix Continue beta florentin, ARB, Atrial fibrillation Continue metoprolol for rate control Anticoagulation for atrial fibrillation Continue Coumadin Adjust Coumadin dose for target INR of 2-3 Likely need adjustment with antibiotics Obstructive sleep apnea Continue BiPAP at night dvt prophylaxis with coumadin
[2019-09-13] MEDS: cefTRIAXone 1 GM in Sodium Chloride 0.9% 50 ML IV SCH (20:28)
[2019-09-13] MEDS: Potassium Chloride 10 MEQ Tab.ER PO SCH (21:01)
[2019-09-13] MEDS: Docusate Sodium 100 MG Cap PO PRN (21:02)
[2019-09-13] MEDS: Azithromycin 500 MG in Sodium Chloride 0.9% 250 ML IV SCH (21:35)
[2019-09-13] MEDS: Pravastatin 20 MG Tab PO SCH (21:39)
[2019-09-14] MEDS: Omeprazole 20 MG Cap.CR PO SCH (06:28)
[2019-09-14 06:49] LABS: ANION GAP 11.9; CHLORIDE,CL 104 mmol/L (101-111); SODIUM,NA 141 mmol/L (135-145)
[2019-09-14] MEDS: Albuterol/Ipratropium 3.0-0.5 MG/3 ML Neb Soln NEB SCH ×4 (07:45→17:40)
[2019-09-14] MEDS: Budesonide 0.5 MG/2 ML Neb Susp NEB SCH ×2 (07:45→17:40)
[2019-09-14] MEDS: Aspirin 81 MG Tab.EC PO SCH (08:39)
[2019-09-14] MEDS: Potassium Chloride 10 MEQ Tab.ER PO SCH ×2 (08:39→21:00)
[2019-09-14] MEDS: amLODIPine 5 MG Tab PO SCH (08:39)
[2019-09-14] MEDS: Losartan 50 MG Tab PO SCH (08:39)
[2019-09-14] MEDS: Metoprolol Tartrate 50 MG Tab PO SCH ×2 (08:40→20:59)
[2019-09-14] MEDS: Oxybutynin 5 MG Tab.ER PO SCH (08:40)
[2019-09-14] MEDS: Furosemide 20 MG/2 ML VIAL IVPUSH SCH (08:41)
[2019-09-14] MEDS: Sodium Chloride 0.9% 10 ML Syringe FLUSH PRN ×4 (08:42→23:14)
--- NOTE | 2019-09-14 11:04 | PCM.PN ---
- General Info Date of Service: 09/14/19 Admission Dx/Problem (Free Text): Admission Diagnosis/Problem Admission Diagnosis/Problem sob Subjective Update: sob is better, mild to mod, worse with activity has good uo, less edema sob started prior to admission no associated cp oxygen is down to 0.5 l/min c/o constipation - few days Functional Status: Reports: Pain Controlled - Review of Systems Pulmonary: Reports: Shortness of Breath Cardiovascular: Denies: Chest Pain Gastrointestinal: Reports: Constipation. Denies: Abdominal Pain Neurological: Denies: Confusion - Patient Data Vitals - Most Recent: Last Vital Signs Temp 36.6 C 09/14/19 07:57 Pulse 96 09/14/19 08:40 Resp 22 H 09/14/19 07:57 BP 155/83 H 09/14/19 08:40 Pulse Ox 91 L 09/14/19 07:57 Weight - Most Recent: 99.518 kg I&O - Last 24 Hours: Intake & Output 09/13/19 09/14/19 09/14/19 22:59 06:59 14:59 Intake Total 242 752 300 Output Total 250 225 Balance -8 527 300 Lab Results Last 24 Hours: Laboratory Results - last 24 hr 09/14/19 09/14/19 Range/Units 05:30 05:30 PT 17.9 H (9.0-12.0) SEC INR 1.8 H (0.9-1.2) Sodium 141 (135-145) mmol/L Potassium 3.9 (3.6-5.0) mmol/L Chloride 104 (101-111) mmol/L Carbon Dioxide 29.0 (21.0-31.0) mmol/L Anion Gap 11.9 BUN 19 H (7-18) mg/dL Creatinine 0.7 (0.6-1.3) mg/dL Est Cr Clr Drug Dosing 45.63 mL/min Estimated GFR (MDRD) > 60 Glucose 105 (74-105) mg/dL Calcium 8.7 (8.4-10.2) mg/dl [facility] Results Last 24 Hours: Microbiology 09/11/19 22:05 Aerobic Blood Culture - Preliminary Blood - Venous NO GROWTH AFTER 2 DAYS Anaerobic Blood Culture - Preliminary NO GROWTH AFTER 2 DAYS 09/11/19 18:15 Aerobic Blood Culture - Preliminary Blood NO GROWTH AFTER 2 DAYS Anaerobic Blood Culture - Preliminary NO GROWTH AFTER 2 DAYS 09/12/19 09:21 Gram Stain - Final Sputum - Expectorated Sputum Culture - Preliminary Normal [facility] Med Orders - Current: Current Medications Acetaminophen (Tylenol) 650 mg PO Q4H PRN PRN Reason: Pain (Mild 1-3)/fever Last Admin: 09/13/19 21:02 Dose: 650 mg Albuterol/Ipratropium (Duoneb 3.0-0.5 Mg/3 Ml) 3 ml NEB Q2H PRN PRN Reason: Wheezing Albuterol/Ipratropium (Duoneb 3.0-0.5 Mg/3 Ml) 3 ml NEB Q6HRRT [facility] Last Admin: 09/14/19 07:45 Dose: 3 ml Amlodipine Besylate (Norvasc) 5 mg PO DAILY [facility] Last Admin: 09/14/19 08:39 Dose: 5 mg Aspirin (Halfprin) 81 mg PO DAILY [facility] Last Admin: 09/14/19 08:39 Dose: 81 mg Budesonide (Pulmicort) 0.5 mg NEB BIDRT [facility] Last Admin: 09/14/19 07:45 Dose: 0.5 mg Docusate Sodium (Colace) 100 mg PO BID PRN PRN Reason: Constipation Last Admin: 09/13/19 21:02 Dose: 100 mg Furosemide (Lasix) 20 mg IVPUSH DAILY [facility] Last Admin: 09/14/19 08:41 Dose: 20 mg Azithromycin 500 mg/ Sodium (Chloride) 250 mls @ 250 mls/hr IV Q24H [facility] Last Infusion: 09/13/19 23:37 Dose: Infused Ceftriaxone Sodium 1 gm/ (Sodium Chloride) 50 mls @ 50 mls/hr IV Q24H [facility] Last Admin: 09/13/19 20:28 Dose: 50 mls/hr Lactulose (Cephulac) 20 gm PO Q6H [facility] Stop: 09/14/19 16:46 Losartan Potassium (Cozaar) 50 mg PO DAILY [facility] Last Admin: 09/14/19 08:39 Dose: 50 mg Metoprolol Tartrate (Lopressor) 100 mg PO QAM [facility] Last Admin: 09/14/19 08:40 Dose: 100 mg Metoprolol Tartrate (Lopressor) 50 mg PO 2000 [facility] Last Admin: 09/13/19 21:04 Dose: 50 mg Omeprazole (Omeprazole) 20 mg PO DAILY@0500 [facility] Last Admin: 09/14/19 06:28 Dose: 20 mg Ondansetron HCl (Zofran Odt) 4 mg PO Q4H PRN PRN Reason: nausea, able to take PO Oxybutynin Chloride (Oxybutynin Er) 10 mg PO DAILY [facility] Last Admin: 09/14/19 08:40 Dose: 10 mg Potassium Chloride (Klor-Con 10) 20 meq PO BID [facility] Last Admin: 09/14/19 08:39 Dose: 20 meq Pravastatin Sodium (Pravachol) 20 mg PO BEDTIME [facility] Last Admin: 09/13/19 21:39 Dose: 20 mg Sodium Chloride (Saline Flush) 10 ml FLUSH ASDIRECTED PRN PRN Reason: Keep Vein Open Last Admin: 09/14/19 08:42 Dose: 10 ml Temazepam (Restoril) 15 mg PO BEDTIME PRN PRN Reason: Sleep Warfarin Sodium (Pharmacy To Dose - Warfarin) 1 dose .XX ASDIRECTED [facility] Warfarin Sodium (Coumadin) 4 mg PO ONETIME ONE Stop: 09/14/19 14:01 Discontinued Medications Albuterol/Ipratropium (Duoneb 3.0-0.5 Mg/3 Ml) 3 ml NEB ONETIME ONE Stop: 09/11/19 17:54 Last Admin: 09/11/19 18:02 Dose: 3 ml Azithromycin (Zithromax) Confirm Administered Dose 500 mg .ROUTE .STK-MED ONE Stop: 09/11/19 20:39 Last Admin: 09/11/19 20:53 Dose: Not Given Furosemide (Lasix) 20 mg IVPUSH BID [facility] Last Admin: 09/12/19 18:54 Dose: 20 mg Furosemide (Lasix) 20 mg IVPUSH BID@0900,1400 [facility] Last Admin: 09/13/19 08:29 Dose: 20 mg Magnesium Oxide (Magnesium Oxide) 250 mg PO BIDM [facility] Stop: 09/12/19 18:01 Last Admin: 09/12/19 18:27 Dose: 250 mg Omeprazole (Omeprazole) 20 mg PO DAILY [facility] Last Admin: 09/13/19 08:29 Dose: Not Given Potassium Chloride (Klor-Con 10) 20 meq PO WITHBREAKFAST [facility] Last Admin: 09/13/19 08:28 Dose: 20 meq Potassium Chloride (Klor-Con 10) 20 meq PO ONETIME ONE Stop: 09/12/19 13:16 Last Admin: 09/12/19 13:18 Dose: 20 meq Warfarin Sodium (Coumadin) 3 mg PO ONETIME ONE Stop: 09/11/19 20:09 Last Admin: 09/12/19 11:31 Dose: Not Given Warfarin Sodium (Coumadin) 3 mg PO ONETIME ONE Stop: 09/12/19 14:01 Last Admin: 09/12/19 13:19 Dose: 3 mg Warfarin Sodium (Coumadin) 3 mg PO ONETIME ONE Stop: 09/13/19 14:01 Last Admin: 09/13/19 14:37 Dose: 3 mg - Exam General: Alert, Oriented Neck: Supple Lungs: Decreased Breath Sounds, Wheezing (mild) Cardiovascular: Regular Rate, Regular Rhythm GI/Abdominal Exam: Normal Bowel Sounds, Soft, Non-Tender Extremities: No Pedal Edema Sepsis Event Note - Evaluation Sepsis Screening Result: Sepsis Risk - Focused Exam Vital Signs: Vital Signs Temp Pulse Pulse Resp BP BP Pulse Ox 09/14/19 08:40 96 155/83 H 09/14/19 08:39 155/83 H 09/14/19 07:57 36.6 C 96 22 H 155/83 H 91 L 09/14/19 07:50 90 09/14/19 00:00 36.7 C 82 34 H 153/87 H 91 L Pulse Ox 09/14/19 08:40 09/14/19 08:39 09/14/19 07:57 09/14/19 07:50 91 L 09/14/19 00:00 93 L Date Exam was Performed: 09/14/19 Time Exam was Performed: 10:59 - Problem List & Annotations (1) Acute respiratory failure SNOMED Code(s): 91244835 Code(s): J96.00 - ACUTE RESPIRATORY FAILURE, UNSP W HYPOXIA OR HYPERCAPNIA Status: Acute Priority: High Current Visit: No Qualifiers: Respiratory failure complication: hypoxia Qualified Code(s): J96.01 - Acute respiratory failure with hypoxia (2) Congestive heart failure SNOMED Code(s): 44150514 Code(s): I50.9 - HEART FAILURE, UNSPECIFIED Status: Acute Current Visit: No Qualifiers: Heart failure type: unspecified Heart failure chronicity: acute Qualified Code(s): I50.9 - Heart failure, unspecified (3) Afib SNOMED Code(s): 89234869 Code(s): I48.91 - UNSPECIFIED ATRIAL FIBRILLATION Status: Chronic Priority: Medium Current Visit: No (4) Anticoagulant therapy SNOMED Code(s): 252690645 Code(s): 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 ANTICOAGULANTS Status: Chronic Priority: Low Current Visit: No (5) COPD (chronic obstructive pulmonary disease) SNOMED Code(s): 51433873 Code(s): J44.9 - CHRONIC OBSTRUCTIVE PULMONARY DISEASE, UNSPECIFIED Status : Chronic Priority: Medium Current Visit: No Qualifiers: COPD type: unspecified COPD Qualified Code(s): J44.9 - Chronic obstructive pulmonary disease, unspecified (6) Chronic anticoagulation SNOMED Code(s): 592999949 Code(s): 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 ANTICOAGULANTS Status: Chronic Priority: Low Current Visit: No (7) COPD exacerbation SNOMED Code(s): 475508499, 380799549 Code(s): J44.1 - CHRONIC OBSTRUCTIVE PULMONARY DISEASE W (ACUTE) EXACERBATION Status: Suspected Priority: Medium Current Visit: No - Problem List Review Problem List Initiated/Reviewed/Updated: Yes - My Orders Last 24 Hours: My Active Orders 09/13/19 21:00 Potassium Chloride [Klor-Con 10] 20 meq PO BID 09/14/19 05:00 Omeprazole 20 mg PO DAILY@0500 09/14/19 09:00 Furosemide [Lasix] 20 mg IVPUSH DAILY 09/14/19 10:45 Lactulose [Cephulac] 20 gm PO Q6H 09/14/19 14:00 Warfarin [Coumadin] 4 mg PO ONETIME ONE 09/15/19 05:11 INR,PT,PROTHROMBIN TIME [COAG] AM 09/15/19 05:15 BASIC METABOLIC PANEL,BMP [CHEM] AM CBC WITH AUTO DIFF [HEME] AM 09/16/19 05:11 INR,PT,PROTHROMBIN TIME [COAG] AM 09/17/19 05:11 INR,PT,PROTHROMBIN TIME [COAG] AM - Plan Plan:: EKG per my reading shows atrial fibrillation with lateral T-wave inversions Chest x-ray per reading "cardiomegaly and pulmonary vascular prominence consistent with volume overload or congestive heart failure" The patient is morbidly obese and it is difficult to evaluate chest x-ray. 88 years old lady who presented with increasing shortness of breath. She is complaining of cough, yellow sputum. She did not have wheezing but improved after nebulizer She was noted to have hypoxemia and lower extremity edema on examination. Acute hypoxemic respiratory failure We will continue to supplement oxygen and taper as possible acute bronchitis No apparent pneumonia on chest x-ray blood culture: neg for now sputum culture: pending empirical treatment with azithromycin and Rocephin Acute congestive heart failure Likely secondary to diastolic dysfunction Last echocardiogram November 2015 showed an ejection fraction about 60% edema improved cont current IV Lasix Continue beta florentin, ARB, Atrial fibrillation Continue metoprolol for rate control Anticoagulation for atrial fibrillation Adjust Coumadin dose for target INR of 2-3 Continue Coumadin Obstructive sleep apnea Continue BiPAP at night constipation add lactulose dvt prophylaxis with coumadin
[2019-09-14] MEDS: Lactulose Soln 10 GM/15 ML 30 ML UD Cup PO SCH ×2 (12:33→16:36)
[2019-09-14] MEDS ORDERED: Warfarin 2 MG Tab PO ONE (14:00)
[2019-09-14] MEDS: cefTRIAXone 1 GM in Sodium Chloride 0.9% 50 ML IV SCH (19:37)
[2019-09-14] MEDS: Azithromycin 500 MG in Sodium Chloride 0.9% 250 ML IV SCH (20:36)
[2019-09-14] MEDS: Pravastatin 20 MG Tab PO SCH (20:58)
[2019-09-14] MEDS: Acetaminophen 325 MG Tab PO PRN (21:01)
[2019-09-15] MEDS: Albuterol/Ipratropium 3.0-0.5 MG/3 ML Neb Soln NEB SCH ×4 (00:49→17:45)
[2019-09-15] MEDS: Omeprazole 20 MG Cap.CR PO SCH (06:13)
[2019-09-15 07:00] LABS: ANION GAP 12.3; CHLORIDE,CL 104 mmol/L (101-111); SODIUM,NA 140 mmol/L (135-145)
[2019-09-15] MEDS: Budesonide 0.5 MG/2 ML Neb Susp NEB SCH ×2 (07:44→17:45)
[2019-09-15] MEDS: Metoprolol Tartrate 50 MG Tab PO SCH ×2 (08:39→21:07)
[2019-09-15] MEDS: amLODIPine 5 MG Tab PO SCH (08:40)
[2019-09-15] MEDS: Aspirin 81 MG Tab.EC PO SCH (08:40)
[2019-09-15] MEDS: Potassium Chloride 10 MEQ Tab.ER PO SCH (08:41)
[2019-09-15] MEDS: Oxybutynin 5 MG Tab.ER PO SCH (08:41)
[2019-09-15] MEDS: Losartan 50 MG Tab PO SCH (08:41)
[2019-09-15] MEDS: Furosemide 20 MG/2 ML VIAL IVPUSH SCH (08:42)
[2019-09-15] MEDS: Sodium Chloride 0.9% 10 ML Syringe FLUSH PRN (08:43)
--- NOTE | 2019-09-15 10:51 | PCM.PN ---
- General Info Date of Service: 09/15/19 Subjective Update: sob is better, mild to mod, worse with activity sob started prior to admission no associated cp was off oxygen yesterday but she was desaturating overnight and had to put back on NC 1 l/min Functional Status: Reports: Tolerating Diet - Review of Systems General: Reports: Weakness. Denies: Fever Pulmonary: Reports: Shortness of Breath Cardiovascular: Reports: Edema (much improved). Denies: Chest Pain Neurological: Denies: Confusion - Patient Data Vitals - Most Recent: Last Vital Signs Temp 36.4 C 09/15/19 07:48 Pulse 86 09/15/19 08:39 Resp 22 H 09/15/19 07:48 BP 140/73 09/15/19 08:41 Pulse Ox 90 L 09/15/19 07:48 Weight - Most Recent: 99.609 kg I&O - Last 24 Hours: Intake & Output 09/14/19 09/15/19 09/15/19 22:59 06:59 14:59 Intake Total 243 846 Output Total 250 750 Balance -7 96 Lab Results Last 24 Hours: Laboratory Results - last 24 hr 09/15/19 09/15/19 09/15/19 Range/Units 05:40 05:40 05:40 WBC 5.3 (5.0-10.0) 10^3/uL RBC 3.31 L (4.2-5.4) 10^6/uL Hgb 10.3 L (12.0-16.0) g/dL Hct 32.3 L (37.0-47.0) % MCV 97.6 (80-100) fL MCH 31.1 (27.0-34.0) pg MCHC 31.9 L (33.0-35.0) g/dL Plt Count 239 (150-450) 10^3/uL Lymph % (Auto) 29.0 (20.5-50.1) % Young % (Auto) 9.9 H (2-8) % Eos % (Auto) 8.7 H (1.0-3.0) % Add Manual Diff Yes Neutrophils % (Manual) 46 (42-75) % Band Neutrophils % 3 % Lymphocytes % (Manual) 35 (20-50) % Monocytes % (Manual) 9 H (2-8) % Eosinophils % (Manual) 7 H (1-3) % PT 16.4 H (9.0-12.0) SEC INR 1.6 H (0.9-1.2) Sodium 140 (135-145) mmol/L Potassium 4.3 (3.6-5.0) mmol/L Chloride 104 (101-111) mmol/L Carbon Dioxide 28.0 (21.0-31.0) mmol/L Anion Gap 12.3 BUN 16 (7-18) mg/dL Creatinine 0.8 (0.6-1.3) mg/dL Est Cr Clr Drug Dosing 39.92 mL/min Estimated GFR (MDRD) > 60 Glucose 101 (74-105) mg/dL Calcium 8.9 (8.4-10.2) mg/dl [facility] Results Last 24 Hours: Microbiology 09/12/19 09:21 Gram Stain - Final Sputum - Expectorated Sputum Culture - Final Normal [facility] 09/11/19 22:05 Aerobic Blood Culture - Preliminary Blood - Venous NO GROWTH AFTER 3 DAYS Anaerobic Blood Culture - Preliminary NO GROWTH AFTER 3 DAYS 09/11/19 18:15 Aerobic Blood Culture - Preliminary Blood NO GROWTH AFTER 3 DAYS Anaerobic Blood Culture - Preliminary NO GROWTH AFTER 3 DAYS Med Orders - Current: Current Medications Acetaminophen (Tylenol) 650 mg PO Q4H PRN PRN Reason: Pain (Mild 1-3)/fever Last Admin: 09/14/19 21:01 Dose: 650 mg Albuterol/Ipratropium (Duoneb 3.0-0.5 Mg/3 Ml) 3 ml NEB Q2H PRN PRN Reason: Wheezing Albuterol/Ipratropium (Duoneb 3.0-0.5 Mg/3 Ml) 3 ml NEB Q6HRRT [facility] Last Admin: 09/15/19 07:44 Dose: 3 ml Amlodipine Besylate (Norvasc) 5 mg PO DAILY [facility] Last Admin: 09/15/19 08:40 Dose: 5 mg Amoxicillin/Clavulanate Potassium (Augmentin 500 Mg\\125 Mg) 1 tab PO TID [facility] Aspirin (Halfprin) 81 mg PO DAILY [facility] Last Admin: 09/15/19 08:40 Dose: 81 mg Budesonide (Pulmicort) 0.5 mg NEB BIDRT [facility] Last Admin: 09/15/19 07:44 Dose: 0.5 mg Docusate Sodium (Colace) 100 mg PO BID PRN PRN Reason: Constipation Last Admin: 09/13/19 21:02 Dose: 100 mg Furosemide (Lasix) 20 mg PO DAILY [facility] Losartan Potassium (Cozaar) 50 mg PO DAILY [facility] Last Admin: 09/15/19 08:41 Dose: 50 mg Metoprolol Tartrate (Lopressor) 100 mg PO QAM [facility] Last Admin: 09/15/19 08:39 Dose: 100 mg Metoprolol Tartrate (Lopressor) 50 mg PO 1999 [facility] Last Admin: 09/14/19 20:59 Dose: 50 mg Omeprazole (Omeprazole) 20 mg PO DAILY@0500 [facility] Last Admin: 09/15/19 06:13 Dose: 20 mg Ondansetron HCl (Zofran Odt) 4 mg PO Q4H PRN PRN Reason: nausea, able to take PO Oxybutynin Chloride (Oxybutynin Er) 10 mg PO DAILY [facility] Last Admin: 09/15/19 08:41 Dose: 10 mg Potassium Chloride (Klor-Con 10) 20 meq PO BID [facility] Last Admin: 09/15/19 08:41 Dose: 20 meq Pravastatin Sodium (Pravachol) 20 mg PO BEDTIME [facility] Last Admin: 09/14/19 20:58 Dose: 20 mg Sodium Chloride (Saline Flush) 10 ml FLUSH ASDIRECTED PRN PRN Reason: Keep Vein Open Last Admin: 09/15/19 08:43 Dose: 10 ml Temazepam (Restoril) 15 mg PO BEDTIME PRN PRN Reason: Sleep Warfarin Sodium (Pharmacy To Dose - Warfarin) 1 dose .XX ASDIRECTED [facility] Warfarin Sodium (Coumadin) 5 mg PO ONETIME ONE Stop: 09/15/19 14:01 Discontinued Medications Albuterol/Ipratropium (Duoneb 3.0-0.5 Mg/3 Ml) 3 ml NEB ONETIME ONE Stop: 09/11/19 17:54 Last Admin: 09/11/19 18:02 Dose: 3 ml Azithromycin (Zithromax) Confirm Administered Dose 500 mg .ROUTE .STK-MED ONE Stop: 09/11/19 20:39 Last Admin: 09/11/19 20:53 Dose: Not Given Furosemide (Lasix) 20 mg IVPUSH BID [facility] Last Admin: 09/12/19 18:54 Dose: 20 mg Furosemide (Lasix) 20 mg IVPUSH BID@0900,1400 [facility] Last Admin: 09/13/19 08:29 Dose: 20 mg Furosemide (Lasix) 20 mg IVPUSH DAILY [facility] Last Admin: 09/15/19 08:42 Dose: 20 mg Azithromycin 500 mg/ Sodium (Chloride) 250 mls @ 250 mls/hr IV Q24H [facility] Last Infusion: 09/14/19 23:13 Dose: Infused Ceftriaxone Sodium 1 gm/ (Sodium Chloride) 50 mls @ 50 mls/hr IV Q24H [facility] Last Admin: 09/14/19 19:37 Dose: 50 mls/hr Lactulose (Cephulac) 20 gm PO Q6H [facility] Stop: 09/14/19 16:46 Last Admin: 09/14/19 16:36 Dose: Not Given Magnesium Oxide (Magnesium Oxide) 250 mg PO BIDM [facility] Stop: 09/12/19 18:01 Last Admin: 09/12/19 18:27 Dose: 250 mg Omeprazole (Omeprazole) 20 mg PO DAILY [facility] Last Admin: 09/13/19 08:29 Dose: Not Given Potassium Chloride (Klor-Con 10) 20 meq PO WITHBREAKFAST [facility] Last Admin: 09/13/19 08:28 Dose: 20 meq Potassium Chloride (Klor-Con 10) 20 meq PO ONETIME ONE Stop: 09/12/19 13:16 Last Admin: 09/12/19 13:18 Dose: 20 meq Warfarin Sodium (Coumadin) 3 mg PO ONETIME ONE Stop: 09/11/19 20:09 Last Admin: 09/12/19 11:31 Dose: Not Given Warfarin Sodium (Coumadin) 3 mg PO ONETIME ONE Stop: 09/12/19 14:01 Last Admin: 09/12/19 13:19 Dose: 3 mg Warfarin Sodium (Coumadin) 3 mg PO ONETIME ONE Stop: 09/13/19 14:01 Last Admin: 09/13/19 14:37 Dose: 3 mg Warfarin Sodium (Coumadin) 4 mg PO ONETIME ONE Stop: 09/14/19 14:01 Last Admin: 09/14/19 13:37 Dose: 4 mg - Exam Quality Assessment: Supplemental Oxygen General: Alert, Oriented Neck: Supple Lungs: Normal Respiratory Effort, Decreased Breath Sounds. No: Wheezing Cardiovascular: Regular Rate, Regular Rhythm GI/Abdominal Exam: Normal Bowel Sounds, Soft, Non-Tender Extremities: Pedal Edema (trace b/l) Skin: Warm, Dry Psy/Mental Status: Alert, Normal Affect, Normal Mood Sepsis Event Note - Evaluation Sepsis Screening Result: No Definite Risk - Focused Exam Vital Signs: Vital Signs Temp Pulse Pulse Resp BP BP Pulse Ox 09/15/19 08:41 140/73 09/15/19 08:40 140/73 09/15/19 08:39 86 140/73 09/15/19 07:48 36.4 C 86 22 H 140/73 90 L 09/15/19 07:44 72 09/15/19 00:49 77 09/15/19 00:48 36.2 C 81 24 H 129/81 90 L Pulse Ox Pulse Ox 09/15/19 08:41 09/15/19 08:40 09/15/19 08:39 09/15/19 07:48 09/15/19 07:44 93 L 09/15/19 00:49 90 L 09/15/19 00:48 Date Exam was Performed: 09/15/19 Time Exam was Performed: 10:45 - Problem List & Annotations (1) Acute respiratory failure SNOMED Code(s): 84350613 Code(s): J96.00 - ACUTE RESPIRATORY FAILURE, UNSP W HYPOXIA OR HYPERCAPNIA Status: Acute Priority: High Current Visit: No Qualifiers: Respiratory failure complication: hypoxia Qualified Code(s): J96.01 - Acute respiratory failure with hypoxia (2) Congestive heart failure SNOMED Code(s): 52294482 Code(s): I50.9 - HEART FAILURE, UNSPECIFIED Status: Acute Current Visit: No Qualifiers: Heart failure type: unspecified Heart failure chronicity: acute Qualified Code(s): I50.9 - Heart failure, unspecified (3) Afib SNOMED Code(s): 59454108 Code(s): I48.91 - UNSPECIFIED ATRIAL FIBRILLATION Status: Chronic Priority: Medium Current Visit: No (4) Anticoagulant therapy SNOMED Code(s): 506659036 Code(s): 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1 - CHRONIC OBSTRUCTIVE PULMONARY DISEASE W (ACUTE) EXACERBATION Status: Suspected Priority: Medium Current Visit: No - Problem List Review Problem List Initiated/Reviewed/Updated: Yes - My Orders Last 24 Hours: My Active Orders 09/15/19 14:00 Amoxicillin/Clavulanate K [Augmentin 500 MG\\125 MG] 1 tab PO TID Warfarin [Coumadin] 5 mg PO ONETIME ONE 09/16/19 05:11 INR,PT,PROTHROMBIN TIME [[facility]] AM 09/16/19 09:00 Furosemide [Lasix] 20 mg PO DAILY 09/17/19 05:11 INR,PT,PROTHROMBIN TIME [[facility]] AM - Plan Plan:: EKG per my reading shows atrial fibrillation with lateral T-wave inversions Chest x-ray per reading "cardiomegaly and pulmonary vascular prominence consistent with volume overload or congestive heart failure" The patient is morbidly obese and it is difficult to evaluate chest x-ray. 88 years old lady who presented with increasing shortness of breath. She is complaining of cough, yellow sputum. She did not have wheezing but improved after nebulizer She was noted to have hypoxemia and lower extremity edema on examination. Acute hypoxemic respiratory failure We will continue to supplement oxygen and taper as possible will do overnight desat study acute bronchitis No apparent pneumonia on chest x-ray blood culture: neg for now sputum culture: pending had empirical treatment with azithromycin and Rocephin will switch to PO augmentin Acute congestive heart failure Likely secondary to diastolic dysfunction Last echocardiogram November 2015 showed an ejection fraction about 60% edema improved cont Lasix - switch from IV to PO Continue beta florentin, ARB, Atrial fibrillation Continue metoprolol for rate control Anticoagulation for atrial fibrillation Adjust Coumadin dose for target INR of 2-3 Continue Coumadin Obstructive sleep apnea Continue BiPAP at night constipation prn lactulose dvt prophylaxis with coumadin
[2019-09-15] MEDS ORDERED: Warfarin 5 MG Tab PO ONE (14:00)
[2019-09-15] MEDS: Amoxicillin/Clavulanate K 500-125 MG Tab PO SCH ×2 (14:22→21:07)
[2019-09-15] MEDS: Acetaminophen 325 MG Tab PO PRN (21:15)
[2019-09-15] MEDS: Pravastatin 20 MG Tab PO SCH (21:23)
[2019-09-16] MEDS: Albuterol/Ipratropium 3.0-0.5 MG/3 ML Neb Soln NEB SCH ×2 (00:51→07:25)
[2019-09-16] MEDS: Omeprazole 20 MG Cap.CR PO SCH (05:50)
[2019-09-16 08:04] VITALS: BP 139/60; PULSE 77
[2019-09-16] MEDS: Amoxicillin/Clavulanate K 500-125 MG Tab PO SCH (08:07)
[2019-09-16] MEDS: Aspirin 81 MG Tab.EC PO SCH (08:07)
[2019-09-16] MEDS: Metoprolol Tartrate 50 MG Tab PO SCH (08:07)
[2019-09-16] MEDS: Losartan 50 MG Tab PO SCH (08:07)
[2019-09-16] MEDS: Oxybutynin 5 MG Tab.ER PO SCH (08:07)
[2019-09-16] MEDS: amLODIPine 5 MG Tab PO SCH (08:07)
[2019-09-16] MEDS: Budesonide 0.5 MG/2 ML Neb Susp NEB SCH (08:11)
[2019-09-16] MEDS ORDERED: Potassium Chloride 10 MEQ Tab.ER PO SCH (09:00)
[2019-09-16] MEDS ORDERED: Furosemide 20 MG Tab PO SCH (09:00)
--- NOTE | 2019-09-16 11:08 | PCM.DCSUM1 ---
Discharge Summary - Hospital Course Free Text/Narrative:: 88 years old lady who presented with increasing shortness of breath. She is complaining of cough, yellow sputum. She did not have wheezing but improved after nebulizer She was noted to have hypoxemia and lower extremity edema on examination. Acute hypoxemic respiratory failure We will continue to supplement oxygen and taper as possible will transfer to swing bed for oxygen tapering, pt/ot acute bronchitis No apparent pneumonia on chest x-ray blood culture: neg for now sputum culture: pending had empirical treatment with azithromycin and Rocephin cont PO augmentin Acute congestive heart failure Likely secondary to diastolic dysfunction Last echocardiogram November 2015 showed an ejection fraction about 60% edema improved cont Lasix Continue beta florentin, ARB, Atrial fibrillation Continue metoprolol for rate control Anticoagulation for atrial fibrillation Adjust Coumadin dose for target INR of 2-3 Continue Coumadin Obstructive sleep apnea Continue home BiPAP at night constipation prn lactulose dvt prophylaxis with coumadin Diagnosis: Stroke: No - Discharge Data Discharge Date: 09/16/19 Discharge Disposition: Home, Self-Care 01 Condition: Stable - Referral to Home Health Primary Care Physician: PCP Unobtainable - Discharge Diagnosis/Problem(s) (1) Acute respiratory failure SNOMED Code(s): 88990109 ICD Code: J96.00 - ACUTE RESPIRATORY FAILURE, UNSP W HYPOXIA OR HYPERCAPNIA Status: Acute Priority: High Current Visit: No Qualifiers: Respiratory failure complication: hypoxia Qualified Code(s): J96.01 - Acute respiratory failure with hypoxia (2) Congestive heart failure SNOMED Code(s): 59005005 ICD Code: I50.9 - HEART FAILURE, UNSPECIFIED Status: Acute Current Visit : No Qualifiers: Heart failure type: unspecified Heart failure chronicity: acute Qualified Code(s): I50.9 - Heart failure, unspecified (3) Afib SNOMED Code(s): 01312310 ICD Code: I48.91 - UNSPECIFIED ATRIAL FIBRILLATION Status: Chronic Priority: Medium Current Visit: No (4) Anticoagulant therapy SNOMED Code(s): 558401302 ICD Code: Z79.01 - MEDICAL APPLIANCE MAKER (CURRENT) USE OF ANTICOAGULANTS Status: Chronic Priority: Low Current Visit: No (5) COPD (chronic obstructive pulmonary disease) SNOMED Code(s): 08529986 ICD Code: J44.9 - CHRONIC OBSTRUCTIVE PULMONARY DISEASE, UNSPECIFIED Status : Chronic Priority: Medium Current Visit: No Qualifiers: COPD type: unspecified COPD Qualified Code(s): J44.9 - Chronic obstructive pulmonary disease, unspecified (6) Chronic anticoagulation SNOMED Code(s): 787420463 ICD Code: Z79.01 - MEDICAL APPLIANCE MAKER (CURRENT) USE OF ANTICOAGULANTS Status: Chronic Priority: Low Current Visit: No (7) COPD exacerbation SNOMED Code(s): 642179645, 483284130 ICD Code: J44.1 - CHRONIC OBSTRUCTIVE PULMONARY DISEASE W (ACUTE) EXACERBATION Status: Suspected Priority: Medium Current Visit: No - Patient Summary/Data Consults: Consultations 09/16/19 09:37 OT Evaluation and Treatment [CONS] Routine PT Evaluation and Treatment [CONS] Routine - Patient Instructions Diet: Heart Healthy Diet Activity: As Tolerated - Discharge Plan Home Medications: Home Meds Losartan [Cozaar] 50 mg PO DAILY 01/13/14 [History] Metoprolol Tartrate [Lopressor] 100 mg PO QAM 01/13/14 [History] Omeprazole 20 mg PO DAILY 01/13/14 [History] Warfarin Sodium 3 mg PO .SASUMOWETHFR 01/13/14 [History] amLODIPine Besylate [Amlodipine Besylate] 5 mg PO DAILY 01/13/14 [History] Calcium Carb, Citrate/Vit D3 [Citracal + D ER] 1 tab PO DAILY 03/09/15 [History] Cholecalciferol (Vitamin D3) [Vitamin D3] 1,000 unit PO DAILY 03/09/15 [History] [place]-3 Fatty Acids [[place]-3] 1 cap PO BID 03/09/15 [History] Oxybutynin [Oxybutynin ER] 10 mg PO DAILY PRN 03/09/15 [History] Fluticasone Propionate [Flonase] 2 spray NASBOTH DAILY 04/07/15 [History] Nitroglycerin [Nitrostat] 1 tab SL ASDIRECTED PRN 04/07/15 [History] Aspirin [Ecotrin EC] 81 mg PO DAILY 01/17/16 [History] Furosemide [Lasix] 20 mg PO DAILY 01/17/16 [History] Metoprolol Tartrate [Lopressor] 50 mg PO QPM 01/17/16 [History] Potassium 99 mg PO DAILY 01/17/16 [History] Albuterol/Ipratropium [DuoNeb 3.0-0.5 MG/3 ML] 3 ml NEB Q6HRRT PRN #120 neb [Rx] Pravastatin Sodium 20 mg PO BEDTIME 05/31/18 [History] Warfarin [Coumadin] 6 mg PO .Monday05/31/18 [History] Acetaminophen [Tylenol Extra Strength] 1,000 mg PO Q6H PRN 09/11/19 [History] Budesonide/Formoterol [Symbicort 160-4.5 MCG] 2 puff PO BID 09/11/19 [History] Albuterol/Ipratropium [DuoNeb 3.0-0.5 MG/3 ML] 3 ml NEB Q2H PRN neb 09/16/19 [ Rx] Amoxicillin/Clavulanate K [Augmentin 500-125 MG] 1 tab PO TID tablet 09/16/19 [ Rx] Budesonide [Pulmicort] 0.5 mg NEB BIDRT neb 09/16/19 [Rx] Furosemide [Lasix] 20 mg PO DAILY tablet 09/16/19 [Rx] Pharmacy to Dose - Warfarin 1 dose .XX ASDIRECTED each 09/16/19 [Rx] Potassium Chloride [Klor-Con 10] 20 meq PO DAILY tab.er 09/16/19 [Rx] Forms: ED Department Discharge Referrals: PCP,Unobtain [Primary Care Provider] - - Discharge Summary/Plan Comment DC Time >30 min.: No - General Info Date of Service: 09/16/19 Subjective Update: sob is still present, mild to mod, worse with activity had wheezing this am concerned about living alone sob started prior to admission no associated cp still on NC 1 l/min at night Functional Status: Reports: Tolerating Diet - Review of Systems General: Denies: Fever Pulmonary: Reports: Shortness of Breath Cardiovascular: Denies: Chest Pain, Edema Neurological: Denies: Confusion - Patient Data Vitals - Most Recent: Last Vital Signs Temp 36.6 C 09/16/19 08:00 Pulse 77 09/16/19 08:07 Resp 24 H 09/16/19 08:00 BP 139/60 09/16/19 08:07 Pulse Ox 92 L 09/16/19 11:00 Weight - Most Recent: 98.656 kg I&O - Last 24 hours: Intake & Output 09/15/19 09/16/19 09/16/19 22:59 06:59 14:59 Intake Total 400 225 400 Output Total 1000 750 Balance -600 -525 400 Lab Results - Last 24 hrs: Laboratory Results - last 24 hr 09/16/19 Range/Units 05:55 PT 16.3 H (9.0-12.0) SEC INR 1.6 H (0.9-1.2) PEREZ Results - Last 24 hrs: Microbiology 09/11/19 22:05 Aerobic Blood Culture - Preliminary Blood - Venous NO GROWTH AFTER 4 DAYS Anaerobic Blood Culture - Preliminary NO GROWTH AFTER 4 DAYS 09/11/19 18:15 Aerobic Blood Culture - Preliminary Blood NO GROWTH AFTER 4 DAYS Anaerobic Blood Culture - Preliminary NO GROWTH AFTER 4 DAYS 09/12/19 09:21 Gram Stain - Final Sputum - Expectorated Sputum Culture - Final Normal [facility] Orders - Current: Current Medications Acetaminophen (Tylenol) 650 mg PO Q4H PRN PRN Reason: Pain (Mild 1-3)/fever Last Admin: 09/15/19 21:15 Dose: 650 mg Albuterol/Ipratropium (Duoneb 3.0-0.5 Mg/3 Ml) 3 ml NEB Q2H PRN PRN Reason: Wheezing Albuterol/Ipratropium (Duoneb 3.0-0.5 Mg/3 Ml) 3 ml NEB Q6HRRT [facility] Last Admin: 09/16/19 07:25 Dose: 3 ml Amlodipine Besylate (Norvasc) 5 mg PO DAILY [facility] Last Admin: 09/16/19 08:07 Dose: 5 mg Amoxicillin/Clavulanate Potassium (Augmentin 500 Mg\125 Mg) 1 tab PO TID [facility] Last Admin: 09/16/19 08:07 Dose: 1 tab Aspirin (Halfprin) 81 mg PO DAILY [facility] Last Admin: 09/16/19 08:07 Dose: 81 mg Budesonide (Pulmicort) 0.5 mg NEB BIDRT [facility] Last Admin: 09/16/19 08:11 Dose: 0.5 mg Docusate Sodium (Colace) 100 mg PO BID PRN PRN Reason: Constipation Last Admin: 09/13/19 21:02 Dose: 100 mg Furosemide (Lasix) 20 mg PO DAILY [facility] Last Admin: 09/16/19 08:06 Dose: 20 mg Losartan Potassium (Cozaar) 50 mg PO DAILY [facility] Last Admin: 09/16/19 08:07 Dose: 50 mg Metoprolol Tartrate (Lopressor) 100 mg PO QA [facility] Last Admin: 09/16/19 08:07 Dose: 100 mg Metoprolol Tartrate (Lopressor) 50 mg PO 1999 [facility] Last Admin: 09/15/19 21:07 Dose: 50 mg Omeprazole (Omeprazole) 20 mg PO DAILY@0500 [facility] Last Admin: 09/16/19 05:50 Dose: 20 mg Ondansetron HCl (Zofran Odt) 4 mg PO Q4H PRN PRN Reason: nausea, able to take PO Oxybutynin Chloride (Oxybutynin Er) 10 mg PO DAILY [facility] Last Admin: 09/16/19 08:07 Dose: 10 mg Potassium Chloride (Klor-Con 10) 20 meq PO DAILY [facility] Last Admin: 09/16/19 08:06 Dose: 20 meq Pravastatin Sodium (Pravachol) 20 mg PO BEDTIME [facility] Last Admin: 09/15/19 21:23 Dose: 20 mg Sodium Chloride (Saline Flush) 10 ml FLUSH ASDIRECTED PRN PRN Reason: Keep Vein Open Last Admin: 09/15/19 08:43 Dose: 10 ml Temazepam (Restoril) 15 mg PO BEDTIME PRN PRN Reason: Sleep Warfarin Sodium (Pharmacy To Dose - Warfarin) 1 dose .XX ASDIRECTED [facility] Warfarin Sodium (Coumadin) 6 mg PO ONETIME ONE Stop: 09/16/19 14:01 Discontinued Medications Albuterol/Ipratropium (Duoneb 3.0-0.5 Mg/3 Ml) 3 ml NEB ONETIME ONE Stop: 09/11/19 17:54 Last Admin: 09/11/19 18:02 Dose: 3 ml Azithromycin (Zithromax) Confirm Administered Dose 500 mg .ROUTE .STK-MED ONE Stop: 09/11/19 20:39 Last Admin: 09/11/19 20:53 Dose: Not Given Furosemide (Lasix) 20 mg IVPUSH BID [facility] Last Admin: 09/12/19 18:54 Dose: 20 mg Furosemide (Lasix) 20 mg IVPUSH BID@0900,1400 [facility] Last Admin: 09/13/19 08:29 Dose: 20 mg Furosemide (Lasix) 20 mg IVPUSH DAILY [facility] Last Admin: 09/15/19 08:42 Dose: 20 mg Azithromycin 500 mg/ Sodium (Chloride) 250 mls @ 250 mls/hr IV Q24H [facility] Last Infusion: 09/14/19 23:13 Dose: Infused Ceftriaxone Sodium 1 gm/ (Sodium Chloride) 50 mls @ 50 mls/hr IV Q24H [facility] Last Admin: 09/14/19 19:37 Dose: 50 mls/hr Lactulose (Cephulac) 20 gm PO Q6H [facility] Stop: 09/14/19 16:46 Last Admin: 09/14/19 16:36 Dose: Not Given Magnesium Oxide (Magnesium Oxide) 250 mg PO BIDM [facility] Stop: 09/12/19 18:01 Last Admin: 09/12/19 18:27 Dose: 250 mg Omeprazole (Omeprazole) 20 mg PO DAILY [facility] Last Admin: 09/13/19 08:29 Dose: Not Given Potassium Chloride (Klor-Con 10) 20 meq PO WITHBREAKFAST [facility] Last Admin: 09/13/19 08:28 Dose: 20 meq Potassium Chloride (Klor-Con 10) 20 meq PO ONETIME ONE Stop: 09/12/19 13:16 Last Admin: 09/12/19 13:18 Dose: 20 meq Potassium Chloride (Klor-Con 10) 20 meq PO BID [facility] Last Admin: 09/15/19 08:41 Dose: 20 meq Warfarin Sodium (Coumadin) 3 mg PO ONETIME ONE Stop: 09/11/19 20:09 Last Admin: 09/12/19 11:31 Dose: Not Given Warfarin Sodium (Coumadin) 3 mg PO ONETIME ONE Stop: 09/12/19 14:01 Last Admin: 09/12/19 13:19 Dose: 3 mg Warfarin Sodium (Coumadin) 3 mg PO ONETIME ONE Stop: 09/13/19 14:01 Last Admin: 09/13/19 14:37 Dose: 3 mg Warfarin Sodium (Coumadin) 4 mg PO ONETIME ONE Stop: 09/14/19 14:01 Last Admin: 09/14/19 13:37 Dose: 4 mg Warfarin Sodium (Coumadin) 5 mg PO ONETIME ONE Stop: 09/15/19 14:01 Last Admin: 09/15/19 14:22 Dose: 5 mg - Exam Quality Assessment: Reports: Supplemental Oxygen General: Reports: Alert, Oriented Neck: Reports: Supple Lungs: Reports: Wheezing (mild) GI/Abdominal Exam: Normal Bowel Sounds, Soft, Non-Tender Skin: Reports: Warm, Dry Psy/Mental Status: Reports: Alert, Normal Affect, Normal Mood
[2019-09-16] MEDS ORDERED: Warfarin 2 MG Tab PO ONE (14:00)
== END 2019-09-16 11:45 | disposition home or self-care (01) | DRG 291 ==
LOC: DL.ED 17:45 → DL.MS 18:57 → OBSVTOIN 09-12 11:30
PROVIDERS: ADMIT Internal Medicine; ATTEND Internal Medicine
DX: I11.0 Hypertensive heart disease with heart failure (principal); J96.01 Acute respiratory failure with hypoxia; R09.02 Hypoxemia; R79.89 Other specified abnormal findings of blood chemistry; I50.31 Acute diastolic (congestive) heart failure; J44.1 Chronic obstructive pulmonary disease with (acute) exacerbation; J44.9 Chronic obstructive pulmonary disease, unspecified; J44.0 Chronic obstructive pulmonary disease with (acute) lower respiratory infection; N32.81 Overactive bladder; E66.9 Obesity, unspecified; I25.10 Atherosclerotic heart disease of native coronary artery without angina pectoris; I48.91 Unspecified atrial fibrillation; E87.6 Hypokalemia; H54.7 Unspecified visual loss; J20.9 Acute bronchitis, unspecified; K21.9 Gastro-esophageal reflux disease without esophagitis; E66.01 Morbid (severe) obesity due to excess calories; G47.33 Obstructive sleep apnea (adult) (pediatric); K59.00 Constipation, unspecified; Z68.42 Body mass index [BMI] 45.0-49.9, adult; Z99.89 Dependence on other enabling machines and devices; Z88.5 Allergy status to narcotic agent; Z88.8 Allergy status to other drugs, medicaments and biological substances; Z79.01 Long term (current) use of anticoagulants; Z79.82 Long term (current) use of aspirin; Z79.51 Long term (current) use of inhaled steroids; Z79.899 Other long term (current) drug therapy; Z85.820 Personal history of malignant melanoma of skin; Z68.39 Body mass index [BMI] 39.0-39.9, adult; Z90.89 Acquired absence of other organs; Z90.49 Acquired absence of other specified parts of digestive tract; Z90.710 Acquired absence of both cervix and uterus; I25.2 Old myocardial infarction; Z86.73 Personal history of transient ischemic attack (TIA), and cerebral infarction without residual deficits; Z98.890 Other specified postprocedural states; Z98.49 Cataract extraction status, unspecified eye; Z99.81 Dependence on supplemental oxygen
CPT/HCPCS: 36415 ×2; 71045; 80048; 80053; 83605 ×3; 83735; 83880; 84100; 84484 ×2; 85025 ×2; 85610 ×2; 87040 ×2; 87070; 87205; 93005; 94640 ×2; 99285; A9270 ×9; J0456; J0696; J1940 ×2; J7050 ×2; 96365; 96367; 96375; 96376; 97162-GP; 97166-GO; 99217; 99218; 99225; 99284; G0378; J7620-GY

== ENCOUNTER 2019-09-16 11:21 | Inpatient (IN) | payer MEDICARE, BC ==
[2019-09-16] MEDS ORDERED: Docusate Sodium 100 MG Cap PO PRN (11:47)
[2019-09-16] MEDS ORDERED: Albuterol/Ipratropium 3.0-0.5 MG/3 ML Neb Soln NEB PRN (11:47)
[2019-09-16] MEDS ORDERED: Ondansetron 4 MG Tab.DIS PO PRN (11:47)
[2019-09-16] MEDS ORDERED: Sodium Chloride 0.9% 10 ML Syringe FLUSH PRN (11:47)
[2019-09-16] MEDS ORDERED: Temazepam 15 MG Cap PO PRN (11:47)
--- NOTE | 2019-09-16 13:34 | PCM.HP ---
H&P History of Present Illness - General Date of Service: 09/16/19 Admit Problem/Dx: Admission Diagnosis/Problem Admission Diagnosis/Problem Weakness Source of Information: Patient - History of Present Illness Initial Comments - Free Text/Narative: Admitted with COPD exacerbation, pneumonia, acute hypoxemic respiratory failure Patient improved but was still weak, still requiring oxygen We will transfer to swing bed for further physical and occupational therapy We'll wean oxygen - Related Data Allergies/Adverse Reactions: Allergies Allergy/AdvReac Type Severity Reaction Status Date / Time atorvastatin calcium Allergy Muscle Verified 09/16/19 12:16 [From Lipitor] Aches morphine Allergy Vomiting Verified 09/16/19 12:16 rosuvastatin calcium Allergy Muscle Verified 09/16/19 12:16 [From Crestor] Aches CALCIUM CONTAINING COMPOUNDS Allergy Cannot Uncoded 09/11/19 19:31 Remember Home Medications: Home Meds Losartan [Cozaar] 50 mg PO DAILY 01/13/14 [History] Metoprolol Tartrate [Lopressor] 100 mg PO QAM 01/13/14 [History] Omeprazole 20 mg PO DAILY 01/13/14 [History] Warfarin Sodium 3 mg PO .SASUMOWETHFR 01/13/14 [History] amLODIPine Besylate [Amlodipine Besylate] 5 mg PO DAILY 01/13/14 [History] Calcium Carb, Citrate/Vit D3 [Citracal + D ER] 1 tab PO DAILY 03/09/15 [History] Cholecalciferol (Vitamin D3) [Vitamin D3] 1,000 unit PO DAILY 03/09/15 [History] [place]-3 Fatty Acids [[place]-3] 1 cap PO BID 03/09/15 [History] Oxybutynin [Oxybutynin ER] 10 mg PO DAILY PRN 03/09/15 [History] Fluticasone Propionate [Flonase] 2 spray NASBOTH DAILY 04/07/15 [History] Nitroglycerin [Nitrostat] 1 tab SL ASDIRECTED PRN 04/07/15 [History] Aspirin [Ecotrin EC] 81 mg PO DAILY 01/17/16 [History] Metoprolol Tartrate [Lopressor] 50 mg PO QPM 01/17/16 [History] Potassium 99 mg PO DAILY 01/17/16 [History] Albuterol/Ipratropium [DuoNeb 3.0-0.5 MG/3 ML] 3 ml NEB Q6HRRT PRN #120 neb [Rx] Pravastatin Sodium 20 mg PO BEDTIME 05/31/18 [History] Warfarin [Coumadin] 6 mg PO .Monday05/31/18 [History] Acetaminophen [Tylenol Extra Strength] 1,000 mg PO Q6H PRN 09/11/19 [History] Budesonide/Formoterol [Symbicort 160-4.5 MCG] 2 puff PO BID 09/11/19 [History] Ascorbic Acid 500 mg PO DAILY 09/16/19 [History] Furosemide [Lasix] 20 mg PO DAILY tablet 09/16/19 [Rx] Pharmacy to Dose - Warfarin 1 dose .XX ASDIRECTED each 09/16/19 [Rx] Past Medical History HEENT History: Reports: Impaired Vision Cardiovascular History: Reports: Afib, Hypertension, [place] Respiratory History: Reports: Asthma, COPD Gastrointestinal History: Reports: GERD Genitourinary History: Reports: Other (See Below) Other Genitourinary History: overactive bladder ON LINE CSR History: Reports: Neurological History: Reports: CVA Psychiatric History: Reports: None Endocrine/Metabolic History: Reports: Obesity/BMI 30+ Hematologic History: Reports: Anticoagulation Therapy Immunologic History: Reports: None Oncologic (Cancer) History: Reports: Malignant Melanoma Dermatologic History: Reports: Eczema - Infectious Disease History Infectious Disease History: Reports: Chicken Pox, Helicobacter Pylori, Measles, Mumps - Past Surgical History HEENT Surgical History: Reports: Adenoidectomy, Cataract Surgery, Tonsillectomy GI Surgical History: Reports: Appendectomy Female Surgical History: Reports: Hysterectomy Other Musculoskeletal Surgeries/Procedures:: Back surg x2 Social & Family History - Family History Family Medical History: Unobtainable Cardiac: Reports: Heart Failure Respiratory: Reports: Asthma - Tobacco Use Smoking Status *Q: Never Smoker Second Hand Smoke Exposure: No - Caffeine Use Caffeine Use: Reports: Coffee Other Caffeine Use: 1 cup of coffee a day. - Recreational Drug Use Recreational Drug Use: No - Living Situation & Occupation Living situation: Reports: , Alone Occupation: Retired H&P Review of Systems - Review of Systems: Review Of Systems: See Below General: Denies: Fever, Chills Pulmonary: Reports: Shortness of Breath Cardiovascular: Denies: Chest Pain, Edema Gastrointestinal: Denies: Abdominal Pain Psychiatric: Denies: Confusion Exam - Exam Exam: See Below - Vital Signs Vital Signs: Last Vital Signs Temp 37.0 C 09/16/19 12:20 Pulse 75 09/16/19 12:20 Resp 26 H 09/16/19 12:20 BP 124/76 09/16/19 12:20 Pulse Ox 94 L 09/16/19 12:20 Weight: 98.656 kg - Exam Quality Assessment: Supplemental Oxygen General: Alert, Oriented Neck: Supple Lungs: Decreased Breath Sounds, Wheezing (mild) Cardiovascular: Regular Rate, Regular Rhythm GI/Abdominal Exam: Normal Bowel Sounds, Soft, Non-Tender Extremities: No Pedal Edema Problem List Initiated/Reviewed/Updated: Yes Orders Last 24hrs: Active Orders 24 hr Category Date Time Status Admission Diagnosis [ADT] Stat ADT 09/16/19 11:47 Ordered Admission Status [Patient Status] [ADT] Routine ADT 09/16/19 11:51 Active Antiembolic Devices [RC] PER UNIT ROUTINE Care 09/16/19 11:47 Active Overnight Pulse Oximetry [Overnight Pulse Oximetry] [RC Care 09/16/19 11:47 Inactive ] Click to Edit Oxygen Therapy [RC] .PRN Care 09/16/19 11:47 Active RT Aerosol Therapy [RC] ASDIRECTED Care 09/16/19 11:47 Active RT BiPAP/CPAP [RC] ASDIRECTED Care 09/16/19 11:47 Active Up With Assistance [RC] ASDIRECTED Care 09/16/19 11:47 Active Vital Signs [RC] QSHIFT Care 09/16/19 11:47 Active OT Evaluation and Treatment [CONS] Routine Cons 09/16/19 11:47 Active PT Evaluation and Treatment [CONS] Routine Cons 09/16/19 11:47 Active Regular Diet [DIET] Diet 09/16/19 Breakfast Active INR,PT,PROTHROMBIN TIME [COAG] AM Lab 09/17/19 05:11 Ordered INR,PT,PROTHROMBIN TIME [COAG] AM Lab 09/18/19 05:11 Ordered INR,PT,PROTHROMBIN TIME [COAG] AM Lab 09/19/19 05:11 Ordered INR,PT,PROTHROMBIN TIME [COAG] AM Lab 09/20/19 05:11 Ordered INR,PT,PROTHROMBIN TIME [COAG] AM Lab 09/21/19 05:11 Ordered Acetaminophen [Tylenol] Med 09/16/19 11:47 Ordered 650 mg PO Q4H PRN Albuterol/Ipratropium [DuoNeb 3.0-0.5 MG/3 ML] Med 09/16/19 11:47 Ordered 3 ml NEB Q2H PRN Albuterol/Ipratropium [DuoNeb 3.0-0.5 MG/3 ML] Med 09/16/19 13:00 Ordered 3 ml NEB Q6HRRT Amoxicillin/Clavulanate K [Augmentin 500 MG\125 MG] Med 09/16/19 14:00 Ordered 1 tab PO TID Aspirin [Halfprin] Med 09/17/19 09:00 Ordered 81 mg PO DAILY Budesonide [Pulmicort] Med 09/16/19 18:00 Ordered 0.5 mg NEB BIDRT Docusate Sodium [Colace] Med 09/16/19 11:47 Ordered 100 mg PO BID PRN Furosemide [Lasix] Med 09/17/19 09:00 Ordered 20 mg PO DAILY Losartan [Cozaar] Med 09/17/19 09:00 Ordered 50 mg PO DAILY Metoprolol Tartrate [Lopressor] Med 09/17/19 09:00 Ordered 100 mg PO QAM Metoprolol Tartrate [Lopressor] Med 09/16/19 20:00 Ordered 50 mg PO 2000 Omeprazole Med 09/17/19 05:00 Ordered 20 mg PO DAILY@0500 Ondansetron [Zofran ODT] Med 09/16/19 11:47 Ordered 4 mg PO Q4H PRN Oxybutynin [Oxybutynin ER] Med 09/17/19 09:00 Ordered 10 mg PO DAILY Pharmacy to Dose - Warfarin Med 09/16/19 11:47 Ordered 1 dose .XX ASDIRECTED Pharmacy to Dose - Warfarin Med 09/16/19 13:30 Ordered 1 dose .XX ASDIRECTED Potassium Chloride [Klor-Con 10] Med 09/17/19 09:00 Ordered 20 meq PO DAILY Pravastatin [Pravachol] Med 09/16/19 21:00 Ordered 20 mg PO BEDTIME Sodium Chloride 0.9% [Saline Flush] Med 09/16/19 11:47 Ordered 10 ml FLUSH ASDIRECTED PRN Temazepam [Restoril] Med 09/16/19 11:47 Ordered 15 mg PO BEDTIME PRN Warfarin [Coumadin] Med 09/16/19 14:00 Once 6 mg PO ONETIME ONE amLODIPine [Norvasc] Med 09/17/19 09:00 Ordered 5 mg PO DAILY Antiembolic Hose [OM.PC] Per Unit Routine Oth 09/16/19 11:47 Ordered Code Status [Resuscitation Status] Routine Resus Stat 09/16/19 11:52 Ordered Medication Orders Acetaminophen (Tylenol) 650 mg PO Q4H PRN PRN Reason: Pain (Mild 1-3)/fever Albuterol/Ipratropium (Duoneb 3.0-0.5 Mg/3 Ml) 3 ml NEB Q2H PRN PRN Reason: Wheezing Albuterol/Ipratropium (Duoneb 3.0-0.5 Mg/3 Ml) 3 ml NEB Q6HRRT [facility] Amlodipine Besylate (Norvasc) 5 mg PO DAILY [facility] Amoxicillin/Clavulanate Potassium (Augmentin 500 Mg\125 Mg) 1 tab PO TID [facility] Aspirin (Halfprin) 81 mg PO DAILY [facility] Budesonide (Pulmicort) 0.5 mg NEB BIDRT [facility] Docusate Sodium (Colace) 100 mg PO BID PRN PRN Reason: Constipation Furosemide (Lasix) 20 mg PO DAILY [facility] Losartan Potassium (Cozaar) 50 mg PO DAILY [facility] Metoprolol Tartrate (Lopressor) 100 mg PO QAM [facility] Metoprolol Tartrate (Lopressor) 50 mg PO 2000 [facility] Omeprazole (Omeprazole) 20 mg PO DAILY@0500 [facility] Ondansetron HCl (Zofran Odt) 4 mg PO Q4H PRN PRN Reason: nausea, able to take PO Oxybutynin Chloride (Oxybutynin Er) 10 mg PO DAILY [facility] Potassium Chloride (Klor-Con 10) 20 meq PO DAILY [facility] Pravastatin Sodium (Pravachol) 20 mg PO BEDTIME [facility] Sodium Chloride (Saline Flush) 10 ml FLUSH ASDIRECTED PRN PRN Reason: Keep Vein Open Temazepam (Restoril) 15 mg PO BEDTIME PRN PRN Reason: Sleep Warfarin Sodium (Pharmacy To Dose - Warfarin) 1 dose .XX ASDIRECTED [facility] Warfarin Sodium (Coumadin) 6 mg PO ONETIME ONE Stop: 09/16/19 14:01 Warfarin Sodium (Pharmacy To Dose - Warfarin) 1 dose .XX ASDIRECTED [facility] Assessment/Plan Comment:: 88 years old lady who presented with increasing shortness of breath. She is complaining of cough, yellow sputum. She did not have wheezing but improved after nebulizer She was noted to have hypoxemia and lower extremity edema on examination. Acute hypoxemic respiratory failure We will continue to supplement oxygen and taper as possible will transfer to swing bed for oxygen tapering, pt/ot acute bronchitis No apparent pneumonia on chest x-ray blood culture: neg had empirical treatment with azithromycin and Rocephin cont PO augmentin Acute congestive heart failure Likely secondary to diastolic dysfunction Last echocardiogram November 2015 showed an ejection fraction about 60% edema improved cont Lasix Continue beta florentin, ARB, Atrial fibrillation Continue metoprolol for rate control Anticoagulation for atrial fibrillation Adjust Coumadin dose for target INR of 2-3 Continue Coumadin Obstructive sleep apnea Continue home BiPAP at night constipation prn lactulose dvt prophylaxis with coumadin
[2019-09-16] MEDS ORDERED: Warfarin 2 MG Tab PO ONE (14:00)
[2019-09-16] MEDS: Albuterol/Ipratropium 3.0-0.5 MG/3 ML Neb Soln NEB SCH ×2 (14:10→18:29)
[2019-09-16] MEDS: Amoxicillin/Clavulanate K 500-125 MG Tab PO SCH ×2 (14:36→20:40)
[2019-09-16] MEDS: Budesonide 0.5 MG/2 ML Neb Susp NEB SCH (18:29)
[2019-09-16] MEDS: Pravastatin 20 MG Tab PO SCH (20:39)
[2019-09-16] MEDS: Metoprolol Tartrate 50 MG Tab PO SCH (20:40)
[2019-09-16] MEDS: Acetaminophen 325 MG Tab PO PRN (20:41)
[2019-09-17] MEDS: Albuterol/Ipratropium 3.0-0.5 MG/3 ML Neb Soln NEB SCH ×4 (01:23→17:55)
[2019-09-17] MEDS: Omeprazole 20 MG Cap.CR PO SCH (05:43)
[2019-09-17] MEDS: Budesonide 0.5 MG/2 ML Neb Susp NEB SCH ×2 (07:31→17:55)
[2019-09-17] MEDS: Losartan 50 MG Tab PO SCH (08:47)
[2019-09-17] MEDS: Metoprolol Tartrate 50 MG Tab PO SCH ×2 (08:47→21:44)
[2019-09-17] MEDS: Furosemide 20 MG Tab PO SCH (08:48)
[2019-09-17] MEDS: Oxybutynin 5 MG Tab.ER PO SCH (08:48)
[2019-09-17] MEDS: Potassium Chloride 10 MEQ Tab.ER PO SCH (08:49)
[2019-09-17] MEDS: Amoxicillin/Clavulanate K 500-125 MG Tab PO SCH ×3 (08:50→21:45)
[2019-09-17] MEDS: Aspirin 81 MG Tab.EC PO SCH (08:50)
[2019-09-17] MEDS: amLODIPine 5 MG Tab PO SCH (08:50)
[2019-09-17] MEDS: Acetaminophen 325 MG Tab PO PRN ×2 (11:08→21:45)
[2019-09-17] MEDS ORDERED: Warfarin 5 MG Tab PO ONE (14:00)
[2019-09-17] MEDS: Pravastatin 20 MG Tab PO SCH (21:45)
[2019-09-18] MEDS: Albuterol/Ipratropium 3.0-0.5 MG/3 ML Neb Soln NEB SCH ×4 (01:31→17:20)
[2019-09-18] MEDS: Omeprazole 20 MG Cap.CR PO SCH (06:21)
[2019-09-18] MEDS: Budesonide 0.5 MG/2 ML Neb Susp NEB SCH ×2 (07:35→17:20)
[2019-09-18] MEDS: Metoprolol Tartrate 50 MG Tab PO SCH ×2 (08:44→20:20)
[2019-09-18] MEDS: Potassium Chloride 10 MEQ Tab.ER PO SCH (08:45)
[2019-09-18] MEDS: Oxybutynin 5 MG Tab.ER PO SCH (08:45)
[2019-09-18] MEDS: Amoxicillin/Clavulanate K 500-125 MG Tab PO SCH ×3 (08:46→20:20)
[2019-09-18] MEDS: Furosemide 20 MG Tab PO SCH (08:46)
[2019-09-18] MEDS: amLODIPine 5 MG Tab PO SCH (08:46)
[2019-09-18] MEDS: Losartan 50 MG Tab PO SCH (08:46)
[2019-09-18] MEDS: Aspirin 81 MG Tab.EC PO SCH (08:46)
[2019-09-18] MEDS ORDERED: Warfarin 2 MG Tab PO ONE (14:00)
[2019-09-18] MEDS: Pravastatin 20 MG Tab PO SCH (20:21)
[2019-09-18] MEDS: Acetaminophen 325 MG Tab PO PRN (20:25)
[2019-09-19] MEDS: Albuterol/Ipratropium 3.0-0.5 MG/3 ML Neb Soln NEB SCH ×4 (00:57→18:02)
[2019-09-19] MEDS: Omeprazole 20 MG Cap.CR PO SCH (06:21)
[2019-09-19] MEDS: Budesonide 0.5 MG/2 ML Neb Susp NEB SCH ×2 (07:19→18:02)
[2019-09-19] MEDS: Potassium Chloride 10 MEQ Tab.ER PO SCH (09:22)
[2019-09-19] MEDS: Amoxicillin/Clavulanate K 500-125 MG Tab PO SCH ×3 (09:22→20:53)
[2019-09-19] MEDS: Oxybutynin 5 MG Tab.ER PO SCH (09:22)
[2019-09-19] MEDS: Metoprolol Tartrate 50 MG Tab PO SCH ×2 (09:23→20:53)
[2019-09-19] MEDS: amLODIPine 5 MG Tab PO SCH (09:23)
[2019-09-19] MEDS: Aspirin 81 MG Tab.EC PO SCH (09:23)
[2019-09-19] MEDS: Furosemide 20 MG Tab PO SCH (09:23)
[2019-09-19] MEDS: Losartan 50 MG Tab PO SCH (09:24)
[2019-09-19] MEDS ORDERED: Warfarin 2 MG Tab PO ONE (14:00)
[2019-09-19] MEDS: Pravastatin 20 MG Tab PO SCH (20:52)
[2019-09-19] MEDS: Acetaminophen 325 MG Tab PO PRN (20:56)
[2019-09-20] MEDS: Albuterol/Ipratropium 3.0-0.5 MG/3 ML Neb Soln NEB SCH ×4 (01:03→17:57)
[2019-09-20] MEDS: Omeprazole 20 MG Cap.CR PO SCH (05:18)
[2019-09-20] MEDS: Budesonide 0.5 MG/2 ML Neb Susp NEB SCH ×2 (07:30→17:57)
[2019-09-20] MEDS: Acetaminophen 325 MG Tab PO PRN (09:09)
[2019-09-20] MEDS: Aspirin 81 MG Tab.EC PO SCH (09:10)
[2019-09-20] MEDS: Metoprolol Tartrate 50 MG Tab PO SCH ×2 (09:11→21:04)
[2019-09-20] MEDS: Potassium Chloride 10 MEQ Tab.ER PO SCH (09:11)
[2019-09-20] MEDS: Oxybutynin 5 MG Tab.ER PO SCH (09:12)
[2019-09-20] MEDS: Furosemide 20 MG Tab PO SCH (09:12)
[2019-09-20] MEDS: Amoxicillin/Clavulanate K 500-125 MG Tab PO SCH ×3 (09:12→21:05)
[2019-09-20] MEDS: amLODIPine 5 MG Tab PO SCH (09:12)
[2019-09-20] MEDS: Losartan 50 MG Tab PO SCH (09:13)
[2019-09-20] MEDS ORDERED: Warfarin 2 MG Tab PO ONE (14:00)
[2019-09-20] MEDS: Pravastatin 20 MG Tab PO SCH (21:05)
[2019-09-21] MEDS: Albuterol/Ipratropium 3.0-0.5 MG/3 ML Neb Soln NEB SCH ×4 (01:01→18:39)
[2019-09-21] MEDS: Omeprazole 20 MG Cap.CR PO SCH (07:21)
[2019-09-21] MEDS: Budesonide 0.5 MG/2 ML Neb Susp NEB SCH ×2 (07:26→18:39)
[2019-09-21] MEDS: Potassium Chloride 10 MEQ Tab.ER PO SCH (09:25)
[2019-09-21] MEDS: Amoxicillin/Clavulanate K 500-125 MG Tab PO SCH ×3 (09:26→21:23)
[2019-09-21] MEDS: Furosemide 20 MG Tab PO SCH (09:26)
[2019-09-21] MEDS: Metoprolol Tartrate 50 MG Tab PO SCH ×2 (09:27→19:33)
[2019-09-21] MEDS: amLODIPine 5 MG Tab PO SCH (09:28)
[2019-09-21] MEDS: Oxybutynin 5 MG Tab.ER PO SCH (09:28)
[2019-09-21] MEDS: Aspirin 81 MG Tab.EC PO SCH (09:29)
[2019-09-21] MEDS: Losartan 50 MG Tab PO SCH (09:29)
[2019-09-21] MEDS ORDERED: Warfarin 2 MG Tab PO ONE (14:00)
[2019-09-21] MEDS: Pravastatin 20 MG Tab PO SCH (21:23)
[2019-09-21] MEDS: Acetaminophen 325 MG Tab PO PRN (21:23)
[2019-09-22] MEDS: Albuterol/Ipratropium 3.0-0.5 MG/3 ML Neb Soln NEB SCH ×4 (01:11→17:36)
[2019-09-22] MEDS: Omeprazole 20 MG Cap.CR PO SCH (05:48)
[2019-09-22] MEDS: Budesonide 0.5 MG/2 ML Neb Susp NEB SCH ×2 (07:32→17:36)
[2019-09-22] MEDS: Potassium Chloride 10 MEQ Tab.ER PO SCH (08:56)
[2019-09-22] MEDS: Oxybutynin 5 MG Tab.ER PO SCH (08:56)
[2019-09-22] MEDS: Metoprolol Tartrate 50 MG Tab PO SCH ×2 (08:56→20:14)
[2019-09-22] MEDS: amLODIPine 5 MG Tab PO SCH (08:57)
[2019-09-22] MEDS: Losartan 50 MG Tab PO SCH (08:57)
[2019-09-22] MEDS: Aspirin 81 MG Tab.EC PO SCH (08:57)
[2019-09-22] MEDS: Amoxicillin/Clavulanate K 500-125 MG Tab PO SCH ×3 (08:57→20:29)
[2019-09-22] MEDS: Furosemide 20 MG Tab PO SCH (08:57)
[2019-09-22] MEDS ORDERED: Warfarin 2 MG Tab PO ONE (14:00)
[2019-09-22] MEDS: Pravastatin 20 MG Tab PO SCH (20:28)
[2019-09-22] MEDS: Acetaminophen 325 MG Tab PO PRN (20:29)
[2019-09-23] MEDS: Albuterol/Ipratropium 3.0-0.5 MG/3 ML Neb Soln NEB SCH ×3 (02:15→14:49)
[2019-09-23] MEDS: Omeprazole 20 MG Cap.CR PO SCH (05:37)
[2019-09-23] MEDS: Budesonide 0.5 MG/2 ML Neb Susp NEB SCH (07:15)
[2019-09-23 07:16] VITALS: PULSE 66
[2019-09-23] MEDS: Losartan 50 MG Tab PO SCH (08:57)
[2019-09-23] MEDS: Amoxicillin/Clavulanate K 500-125 MG Tab PO SCH ×2 (08:57→14:32)
[2019-09-23] MEDS: amLODIPine 5 MG Tab PO SCH (08:57)
[2019-09-23] MEDS: Furosemide 20 MG Tab PO SCH (08:57)
[2019-09-23] MEDS: Potassium Chloride 10 MEQ Tab.ER PO SCH (08:57)
[2019-09-23] MEDS: Aspirin 81 MG Tab.EC PO SCH (08:58)
[2019-09-23] MEDS: Oxybutynin 5 MG Tab.ER PO SCH (08:58)
[2019-09-23] MEDS: Metoprolol Tartrate 50 MG Tab PO SCH (08:58)
[2019-09-23 08:59] VITALS: BP 161/62
--- NOTE | 2019-09-23 11:06 | PN ---
DATE: 09/23/2019 SUBJECTIVE: The patient is an 88-year-old lady who was admitted to acute care because of pneumonia, COPD, and hypoxemic respiratory failure and subsequently transferred to swing bed on oxygen. The patient for the last 5 days has not been using her oxygen and she is back to her baseline and she currently denies any ongoing complaints and she is ready to go home. She denies any chest pain, fever, chills, orthopnea, PND, nor any other complaints. OBJECTIVE: Vital Signs: Blood pressure is 161/62, pulse of 66, respiration of 22, temperature of 98.5, saturation is 92% on room air. Heart: Regular. Ventricular response within normal limits. Lungs: Diminished breath sounds on both bases, but no crackles, no wheezing. Abdomen: Obese, soft, nontender. Extremities: Remarkable for trace bilateral pedal edema. No calf tenderness. PLAN: We will discharge the patient home today. We will continue with her current regimen and we will see her for followup in 7 to 10 days. [facility] /[id number]
--- NOTE | 2019-09-23 11:21 | DISCH ---
FINAL DIAGNOSES: 1. Hypoxemia. 2. Acute bronchitis/chronic obstructive pulmonary disease exacerbation. 3. Congestive heart failure. 4. Atrial fibrillation. 5. Chronic anticoagulation therapy. 6. Obstructive sleep apnea. BRIEF HISTORY OF PRESENT ILLNESS: Please see H and P. PERTINENT LABS, X-RAY AND OTHER TESTS: See H and P. HOSPITAL COURSE: The patient was admitted to Swing bed. She was continued on Augmentin 1 tablet 3 times a day and resumed on her home medication. She was continued on oxygen. She was on PT and OT. The patient did well during the hospital stay at the swing bed and the patient's oxygen was weaned off and her saturation remained within the target after being 5 days off oxygen. The rest of the hospital course was uncomplicated, and she was subsequently discharged. CONDITION ON DISCHARGE: Improved. MEDICATIONS: She will resume on her home medication. FOLLOWUP: I will see her for followup in 7 to 10 days. [facility] /[id number]
[2019-09-23] MEDS ORDERED: Warfarin 2 MG Tab PO SCH (14:00)
== END 2019-09-23 16:37 | disposition home or self-care (01) | DRG 947 ==
LOC: DL.MS 11:51
PROVIDERS: ADMIT Internal Medicine; ATTEND Internal Medicine
DX: R53.1 Weakness (principal); J96.01 Acute respiratory failure with hypoxia; J44.0 Chronic obstructive pulmonary disease with (acute) lower respiratory infection; J44.1 Chronic obstructive pulmonary disease with (acute) exacerbation; Z68.41 Body mass index [BMI] 40.0-44.9, adult; J20.9 Acute bronchitis, unspecified; I11.0 Hypertensive heart disease with heart failure; I50.9 Heart failure, unspecified; I48.91 Unspecified atrial fibrillation; G47.33 Obstructive sleep apnea (adult) (pediatric); E66.9 Obesity, unspecified; K59.00 Constipation, unspecified; Z79.01 Long term (current) use of anticoagulants; Z88.8 Allergy status to other drugs, medicaments and biological substances; Z79.82 Long term (current) use of aspirin; Z98.49 Cataract extraction status, unspecified eye; Z90.710 Acquired absence of both cervix and uterus; I25.2 Old myocardial infarction; Z79.899 Other long term (current) drug therapy; Z28.82 Immunization not carried out because of caregiver refusal
CPT/HCPCS: 36415; 85610; 94640; 97110-GO; 97110-GP; 97116-GP; 97162-GP; 97166-GO; 97530-GO; A9270-GY; J7620-GY

== ENCOUNTER 2020-04-05 19:07 | Inpatient (IN) | payer MEDICARE, BC ==
--- NOTE | 2020-04-05 19:25 | EDM.PDOC ---
ED HPI GENERAL MEDICAL PROBLEM - General Chief Complaint: Neuro Symptoms/Deficits Stated Complaint: AMUBLANCE STROKE Time Seen by Provider: 04/05/20 19:12 Source of Information: Reports: EMS History Limitations: Reports: Altered Mental Status - History of Present Illness INITIAL COMMENTS - FREE TEXT/NARRATIVE: This 89 yo female patient was brought to the ED by [facility] due to a possible stroke. EMS reports the patient was at home going to the bathroom when she got nauseated and vomited. EMS reports family reports the patient's legs then gave out on her. EMS assessment revealed some right sided facial droop. EMS reported the patient was moving all extremities appropriately during their care. Onset: Today Duration: Constant Location: Reports: Other Quality: Reports: Other Severity: Moderate Improves with: Reports: None Worsens with: Reports: None Context: Reports: Other - Related Data Allergies Allergy/AdvReac Type Severity Reaction Status Date / Time atorvastatin calcium Allergy Muscle Verified 09/16/19 12:16 [From Lipitor] Aches morphine Allergy Vomiting Verified 09/16/19 12:16 rosuvastatin calcium Allergy Muscle Verified 09/16/19 12:16 [From Crestor] Aches CALCIUM CONTAINING COMPOUNDS Allergy Cannot Uncoded 09/11/19 19:31 Remember Home Meds: Home Meds Losartan [Cozaar] 50 mg PO DAILY 01/13/14 [History] Metoprolol Tartrate [Lopressor] 100 mg PO QAM 01/13/14 [History] Omeprazole 20 mg PO DAILY 01/13/14 [History] amLODIPine Besylate [Amlodipine Besylate] 5 mg PO DAILY 01/13/14 [History] Calcium Carb, Citrate/Vit D3 [Citracal + D ER] 1 tab PO DAILY 03/09/15 [History] Cholecalciferol (Vitamin D3) [Vitamin D3] 1,000 unit PO DAILY 03/09/15 [History] [place]-3 Fatty Acids [[place]-3] 1 cap PO BID 03/09/15 [History] Oxybutynin [Oxybutynin ER] 10 mg PO DAILY PRN 03/09/15 [History] Fluticasone Propionate [Flonase] 2 spray NASBOTH DAILY 04/07/15 [History] Nitroglycerin [Nitrostat] 1 tab SL ASDIRECTED PRN 04/07/15 [History] Aspirin [Ecotrin EC] 81 mg PO DAILY 01/17/16 [History] Metoprolol Tartrate [Lopressor] 50 mg PO QPM 01/17/16 [History] Potassium 99 mg PO DAILY 01/17/16 [History] Albuterol/Ipratropium [DuoNeb 3.0-0.5 MG/3 ML] 3 ml NEB Q6HRRT PRN #120 neb 01/20/16 [Rx] Pravastatin Sodium 20 mg PO BEDTIME 05/31/18 [History] Acetaminophen [Tylenol Extra Strength] 1,000 mg PO Q6H PRN 09/11/19 [History] Budesonide/Formoterol [Symbicort 160-4.5 MCG] 2 puff PO BID 09/11/19 [History] Ascorbic Acid 500 mg PO DAILY 09/16/19 [History] Furosemide [Lasix] 20 mg PO DAILY tablet 09/16/19 [Rx] Pharmacy to Dose - Warfarin 1 dose .XX ASDIRECTED each 09/23/19 [Rx] Warfarin [Coumadin] 4 mg PO DAILY@1400 30 Days #30 tablet 09/23/19 [Rx] Past Medical History HEENT History: Reports: Impaired Vision Cardiovascular History: Reports: Afib, Hypertension, [place] Respiratory History: Reports: Asthma, COPD Gastrointestinal History: Reports: GERD Genitourinary History: Reports: Other (See Below) Other Genitourinary History: overactive bladder 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: Neurological History: Reports: CVA Psychiatric History: Reports: None Endocrine/Metabolic History: Reports: Obesity/BMI 30+ Hematologic History: Reports: Anticoagulation Therapy Immunologic History: Reports: None Oncologic (Cancer) History: Reports: Malignant Melanoma Dermatologic History: Reports: Eczema - Infectious Disease History Infectious Disease History: Reports: Chicken Pox, Helicobacter Pylori, Measles, Mumps - Past Surgical History HEENT Surgical History: Reports: Adenoidectomy, Cataract Surgery, Tonsillectomy GI Surgical History: Reports: Appendectomy Female Surgical History: Reports: Hysterectomy Other Musculoskeletal Surgeries/Procedures:: Back surg x2 Social & Family History - Family History Family Medical History: Unobtainable Cardiac: Reports: Heart Failure Respiratory: Reports: Asthma - Caffeine Use Caffeine Use: Reports: Coffee Other Caffeine Use: 1 cup of coffee a day. - Living Situation & Occupation Living situation: Reports: , Alone Occupation: Retired ED ROS GENERAL - Review of Systems Review Of Systems: Comprehensive ROS is negative, except as noted in HPI. ED EXAM, NEURO - Physical Exam Exam: See Below Exam Limited By: No Limitations General Appearance: Alert, WD/WN, Moderate Distress Eye Exam: Bilateral Eye: EOMI, Normal Inspection, PERRL Ears: Normal External Exam, Normal Canal, Hearing Grossly Normal, Normal TMs Nose: Normal Inspection, Normal Mucosa, No Blood Throat/Mouth: Normal Inspection, Normal Lips, Normal Teeth, Normal Gums Head Exam: Atraumatic, Normocephalic Neck: Normal Inspection, Supple, Non-Tender, Full Range of Motion Respiratory/Chest: No Respiratory Distress, Lungs Clear, Normal Breath Sounds, No Accessory Muscle Use, Chest Non-Tender Cardiovascular: Normal Peripheral Pulses, Regular Rate, Rhythm, No Edema, No Gallop, No JVD, No Murmur, No Rub GI/Abdominal: Normal Bowel Sounds, Soft, Non-Tender, No Organomegaly, No Distention, No Abnormal Bruit, No Mass (Female) Exam: Deferred Rectal (Female) Exam: Deferred Neurological: Other (This patient has right sided facial weakness, left upper extremity weakness and does not respond with verbal responses.) Back Exam: Normal Inspection, Full Range of Motion, NT Skin Exam: Warm, Dry, Intact, Normal Color, No Rash Course - Vital Signs Last Recorded V/S: Last Vital Signs Temp 36.2 C 04/05/20 19:15 Pulse 73 04/05/20 19:15 Resp 33 H 04/05/20 19:15 BP 181/82 H 04/05/20 19:15 Pulse Ox 88 L 04/05/20 19:15 - Orders/Labs/Meds Orders: Active Orders 24 hr Category Date Time Status EKG Documentation Completion [RC] STAT Care 04/05/20 19:03 Ordered FRESH FROZEN PLASMA [BBK] Stat Lab 04/05/20 20:33 Ordered Labs: Laboratory Tests 04/05/20 04/05/20 04/05/20 Range/Units 19:03 19:23 19:24 WBC 10.2 H (5.0-10.0) 10^3/uL RBC 4.44 (4.2-5.4) 10^6/uL Hgb 13.9 D (12.0-16.0) g/dL Hct 42.1 (37.0-47.0) % MCV 94.8 (80-100) fL MCH 31.3 (27.0-34.0) pg MCHC 33.0 (33.0-35.0) g/dL Plt Count 241 (150-450) 10^3/uL Lymph % (Auto) 12.5 L (20.5-50.1) % [place] % (Auto) 5.2 (2-8) % Eos % (Auto) 0.8 L (1.0-3.0) % Add Manual Diff Yes Neutrophils % (Manual) 78 H (42-75) % Band Neutrophils % 7 % Lymphocytes % (Manual) 12 L (20-50) % Monocytes % (Manual) 3 (2-8) % PT (9.0-12.0) SEC INR (0.9-1.2) Sodium (136-145) mmol/L Potassium (3.5-5.1) mmol/L Chloride (98-107) mmol/L Carbon Dioxide (21-32) mmol/L Anion Gap (7-13) mEq/L BUN (7-18) mg/dL Creatinine (0.55-1.02) mg/dL Est Cr Clr Drug Dosing Estimated GFR (MDRD) BUN/Creatinine Ratio (No establ ref range) Glucose (74-99) mg/dL Calcium (8.5-10.1) mg/dL Total Bilirubin (0.2-1.0) mg/dL AST (15-37) U/L ALT (14-59) U/L Alkaline Phosphatase (46-116) U/L Troponin I (0.000-0.056) ng/mL Total Protein (6.4-8.2) g/dL Albumin (3.4-5.0) g/dL Globulin Albumin/Globulin Ratio Urine Color Yellow (YELLOW) Urine Appearance Clear (CLEAR) Urine pH 7.5 (5.0-9.0) Ur Specific [place] 1.020 (1.005-1.030) Urine Protein 100 H (NEGATIVE) Urine Glucose (UA) Negative (NEGATIVE) Urine Ketones Negative (NEGATIVE) Urine Occult Blood Negative (NEGATIVE) Urine Nitrite Negative (NEGATIVE) Urine Bilirubin Negative (NEGATIVE) Urine Urobilinogen 0.2 (0.2-1.0) mg/dL Ur Leukocyte Esterase Negative (NEGATIVE) Urine RBC Not seen /HPF Urine WBC 0-5 (0-5/HPF) /HPF Ur Epithelial Cells Few (NOT SEEN) /HPF Amorphous Sediment Moderate H (NOT SEEN) /HPF Urine Bacteria Few (0-FEW/HPF) /HPF Fine Granular Casts Few H (NOT SEEN) /LPF Urine Mucus Rare (NOT SEEN) /LPF COVID-19 (SEBASTIEN) Negative (NEGATIVE) 04/05/20 04/05/20 Range/Units 19:24 19:24 WBC (5.0-10.0) 10^3/uL RBC (4.2-5.4) 10^6/uL Hgb (12.0-16.0) g/dL Hct (37.0-47.0) % MCV (80-100) fL MCH (27.0-34.0) pg MCHC (33.0-35.0) g/dL Plt Count (150-450) 10^3/uL Lymph % (Auto) (20.5-50.1) % [place] % (Auto) (2-8) % Eos % (Auto) (1.0-3.0) % Add Manual Diff Neutrophils % (Manual) (42-75) % Band Neutrophils % % Lymphocytes % (Manual) (20-50) % Monocytes % (Manual) (2-8) % PT 20.6 H (9.0-12.0) SEC INR 2.2 H (0.9-1.2) Sodium 138 (136-145) mmol/L Potassium 3.8 (3.5-5.1) mmol/L Chloride 101 (98-107) mmol/L Carbon Dioxide 30 (21-32) mmol/L Anion Gap 10.8 (7-13) mEq/L BUN 18 (7-18) mg/dL Creatinine 0.87 (0.55-1.02) mg/dL Est Cr Clr Drug Dosing TNP Estimated GFR (MDRD) > 60 BUN/Creatinine Ratio 20.7 (No establ ref range) Glucose 139 H (74-99) mg/dL Calcium 8.8 (8.5-10.1) mg/dL Total Bilirubin 0.9 (0.2-1.0) mg/dL AST 15 (15-37) U/L ALT 21 (14-59) U/L Alkaline Phosphatase 75 (46-116) U/L Troponin I < 0.017 (0.000-0.056) ng/mL Total Protein 7.7 (6.4-8.2) g/dL Albumin 4.0 (3.4-5.0) g/dL Globulin 3.7 Albumin/Globulin Ratio 1.1 Urine Color (YELLOW) Urine Appearance (CLEAR) Urine pH (5.0-9.0) Ur Specific [place] (1.005-1.030) Urine Protein (NEGATIVE) Urine Glucose (UA) (NEGATIVE) Urine Ketones (NEGATIVE) Urine Occult Blood (NEGATIVE) Urine Nitrite (NEGATIVE) Urine Bilirubin (NEGATIVE) Urine Urobilinogen (0.2-1.0) mg/dL Ur Leukocyte Esterase (NEGATIVE) Urine RBC /HPF Urine WBC (0-5/HPF) /HPF Ur Epithelial Cells (NOT SEEN) /HPF Amorphous Sediment (NOT SEEN) /HPF Urine Bacteria (0-FEW/HPF) /HPF Fine Granular Casts (NOT SEEN) /LPF Urine Mucus (NOT SEEN) /LPF COVID-19 (SEBASTIEN) (NEGATIVE) Meds: Medications Discontinued Medications Generic Name Dose Route Start Last Admin Trade Name Freq PRN Reason Stop Dose Admin Furosemide 40 mg 04/05/20 20:31 Lasix IVPUSH 04/05/20 20:32 NOW ONE - Re-Assessments/Exams Free Text/Narrative Re-Assessment/Exam: 04/05/20 20:34 Discussed the patient's history, examination, lab and CT results with Dr. Becerra (Neurology - [facility]) and Dr. Castillo (Neurosurgery - [facility]) both agreed that the patient has a poor prognosis despite intervention. This was discussed with the patient's daughter that agreed to place the patient on comfort care here at [facility]. Departure - Departure Time of Disposition: 20:36 Disposition: DC/Tfer to Acute Hospital 02 Condition: Serious Clinical Impression: Acute intracranial hemorrhage - Discharge Information *PRESCRIPTION DRUG MONITORING PROGRAM REVIEWED*: Not Applicable *COPY OF PRESCRIPTION DRUG MONITORING REPORT IN PATIENT DANIELA: Not Applicable Care Plan Goals: Discussed the patient's history, examination, lab, CT and Consult results with Dr. Gonzalez. Dr. Gonzalez accepted the patient for comfort cares here at [facility] in [place]. Sepsis Event Note (ED) - Focused Exam Vital Signs: Vital Signs Temp Pulse Resp BP Pulse Ox 04/05/20 19:15 36.2 C 73 33 H 181/82 H 88 L - My Orders Last 24 Hours: My Active Orders 04/05/20 19:03 EKG Documentation Completion [RC] STAT 04/05/20 20:33 FRESH FROZEN PLASMA [BBK] Stat - Assessment/Plan Last 24 Hours: My Active Orders 04/05/20 19:03 EKG Documentation Completion [RC] STAT 04/05/20 20:33 FRESH FROZEN PLASMA [BBK] Stat
--- NOTE | 2020-04-05 19:31 | CT ---
CT HEAD/FACIAL: 04/05/2020 7:14 PM PROVIDED CLINICAL HISTORY: Facial drooping; Additional info: CVA TECHNIQUE: Noncontrast axial head and facial CT scan. Coronal and sagittal reformatted images are submitted. All CT scans at this facility use at least one of these dose optimization techniques: automated exposure control; mA and/or kV adjustment per patient size (includes targeted exams where dose is matched to clinical indication); or iterative reconstruction. COMPARISON: Head CT scan dated 12/15/2016 FINDINGS: There is an irregular heterogeneously hyperdense right frontal acute parenchymal hemorrhage which in greatest dimensions measures 7 cm AP by 5.5 cm transverse by 4.5 cm craniocaudal, with subarachnoid extension of hyperdense hemorrhage into the adjacent right sylvian fissure, and with adjacent white matter edema and associated mass effect including right frontal and temporal sulcal effacement, subtotal effacement of the right lateral ventricle, and subfalcine herniation with midline shift to the left measuring 6 mm. No other intracranial hemorrhagic components, and the remaining ventricles and sulci are unremarkable for age, without hydrocephalus. Atherosclerotic intracranial vascular calcifications noted. The osseous structures are intact, without fracture. The paranasal sinuses are clear, without fluid or mucosal thickening. There is evidence for prior bilateral ocular lens replacement surgery, but the orbits are otherwise unremarkable. The infratemporal fossae, mastoid air cells, skull, scalp, and visualized portions of the mandible and upper cervical spine are unremarkable. IMPRESSION: --Large irregular right frontal acute parenchymal hemorrhage with subarachnoid extension into the right sylvian fissure, and with adjacent white matter edema and associated mass effect including right frontal and temporal sulcal effacement, subtotal effacement of the right lateral ventricle, and subfalcine herniation with midline shift to the left measuring 6 mm. --No craniofacial fracture.
[2020-04-05 19:57] LABS: ANION GAP 10.8 mEq/L (7-13); CHLORIDE,CL 101 mmol/L (98-107); SODIUM,NA 138 mmol/L (136-145)
[2020-04-05] MEDS ORDERED: Furosemide 40 MG/4 ML VIAL IVPUSH ONE (20:31)
[2020-04-05] MEDS ORDERED: Labetalol 20 MG/4 ML Syringe IVPUSH ONE (21:46)
[2020-04-05] MEDS ORDERED: Albuterol/Ipratropium 3.0-0.5 MG/3 ML Neb Soln NEB PRN (21:48)
[2020-04-05] MEDS ORDERED: Atropine 1% Ophth Soln 5 ML BOTTLE SL PRN (21:48)
[2020-04-05] MEDS: Ondansetron 4 MG/2 ML SDV IVPUSH PRN (22:19)
--- NOTE | 2020-04-05 22:26 | PCM.HP ---
H&P History of Present Illness - General Date of Service: 04/05/20 Admit Problem/Dx: Admission Diagnosis/Problem Admission Diagnosis/Problem Comfort measures only status Source of Information: Patient - History of Present Illness Initial Comments - Free Text/Narative: 89-year-old lady with a history of hypertension, atrial fibrillation. The patient has been anticoagulated with the Coumadin. INR was in therapeutic range today. The patient was noted by family to have slurred speech. When ambulance arrived the patient had right-sided facial droop. The patient quickly deteriorated and in the emergency room the patient was a practically nonresponsive, left upper extremity weakness. On CT the patient was noted to have intracranial hemorrhage. After neurology, neurosurgery consultation family felt that the patient would not want surgical interventions. Due to poor prognosis comfort care in the local hospital setting was opted by family. - Related Data Allergies/Adverse Reactions: Allergies Allergy/AdvReac Type Severity Reaction Status Date / Time atorvastatin calcium Allergy Muscle Verified 09/16/19 12:16 [From Lipitor] Aches morphine Allergy Vomiting Verified 09/16/19 12:16 rosuvastatin calcium Allergy Muscle Verified 09/16/19 12:16 [From Crestor] Aches CALCIUM CONTAINING COMPOUNDS Allergy Cannot Uncoded 09/11/19 19:31 Remember Home Medications: Home Meds Losartan [Cozaar] 50 mg PO DAILY 01/13/14 [History] Metoprolol Tartrate [Lopressor] 100 mg PO QAM 01/13/14 [History] Omeprazole 20 mg PO DAILY 01/13/14 [History] amLODIPine Besylate [Amlodipine Besylate] 5 mg PO DAILY 01/13/14 [History] Calcium Carb, Citrate/Vit D3 [Citracal + D ER] 1 tab PO DAILY 03/09/15 [History] Cholecalciferol (Vitamin D3) [Vitamin D3] 1,000 unit PO DAILY 03/09/15 [History] [place]-3 Fatty Acids [[place]-3] 1 cap PO BID 03/09/15 [History] Oxybutynin [Oxybutynin ER] 10 mg PO DAILY PRN 03/09/15 [History] Fluticasone Propionate [Flonase] 2 spray NASBOTH DAILY 04/07/15 [History] Nitroglycerin [Nitrostat] 1 tab SL ASDIRECTED PRN 04/07/15 [History] Aspirin [Ecotrin EC] 81 mg PO DAILY 01/17/16 [History] Metoprolol Tartrate [Lopressor] 50 mg PO QPM 01/17/16 [History] Potassium 99 mg PO DAILY 01/17/16 [History] Albuterol/Ipratropium [DuoNeb 3.0-0.5 MG/3 ML] 3 ml NEB Q6HRRT PRN #120 neb 01/20/16 [Rx] Pravastatin Sodium 20 mg PO BEDTIME 05/31/18 [History] Acetaminophen [Tylenol Extra Strength] 1,000 mg PO Q6H PRN 09/11/19 [History] Budesonide/Formoterol [Symbicort 160-4.5 MCG] 2 puff PO BID 09/11/19 [History] Ascorbic Acid 500 mg PO DAILY 09/16/19 [History] Furosemide [Lasix] 20 mg PO DAILY tablet 09/16/19 [Rx] Pharmacy to Dose - Warfarin 1 dose .XX ASDIRECTED each 09/23/19 [Rx] Warfarin [Coumadin] 4 mg PO DAILY@1400 30 Days #30 tablet 09/23/19 [Rx] Past Medical History HEENT History: Reports: Impaired Vision Cardiovascular History: Reports: Afib, Hypertension, CA Respiratory History: Reports: Asthma, COPD Gastrointestinal History: Reports: GERD Genitourinary History: Reports: Other (See Below) Other Genitourinary History: overactive bladder [address] [place] History: Reports: Neurological History: Reports: CVA Psychiatric History: Reports: None Endocrine/Metabolic History: Reports: Obesity/BMI 30+ Hematologic History: Reports: Anticoagulation Therapy Immunologic History: Reports: None Oncologic (Cancer) History: Reports: Malignant Melanoma Dermatologic History: Reports: Eczema - Infectious Disease History Infectious Disease History: Reports: Chicken Pox, Helicobacter Pylori, Measles, Mumps - Past Surgical History HEENT Surgical History: Reports: Adenoidectomy, Cataract Surgery, Tonsillectomy GI Surgical History: Reports: Appendectomy Female Surgical History: Reports: Hysterectomy Other Musculoskeletal Surgeries/Procedures:: Back surg x2 Social & Family History - Family History Family Medical History: Unobtainable Cardiac: Reports: Heart Failure Respiratory: Reports: Asthma - Tobacco Use Smoking Status *Q: Never Smoker Second Hand Smoke Exposure: No - Caffeine Use Caffeine Use: Reports: None Other Caffeine Use: 1 cup of coffee a day. - Recreational Drug Use Recreational Drug Use: No - Living Situation & Occupation Living situation: Reports: , Alone Occupation: Retired H&P Review of Systems - Review of Systems: Review Of Systems: Unable To Obtain Reason Not Obtained: minimally responsive Exam - Exam Exam: See Below - Vital Signs Vital Signs: Last Vital Signs Temp 97.8 F 04/05/20 21:05 Pulse 56 L 04/05/20 21:05 Resp 15 04/05/20 21:05 BP 167/63 H 04/05/20 21:05 Pulse Ox 97 04/05/20 21:05 Weight: 217 lb 6.4 oz - Exam Quality Assessment: Supplemental Oxygen General: Lethargic Neck: Supple Lungs: Clear to Auscultation, Normal Respiratory Effort Cardiovascular: Regular Rate, Regular Rhythm GI/Abdominal Exam: Normal Bowel Sounds, Soft Extremities: Pedal Edema (Trace bilateral) Neuro Extensive - Mental Status: Alert, Other (Nonverbal, able to move, squeeze right upper extremity on demand, left upper extremity flaccid.) - Patient Data Lab Results Last 24 hrs: Laboratory Results - last 24 hr 04/05/20 04/05/20 04/05/20 Range/Units 19:03 19:23 19:24 WBC 10.2 H (5.0-10.0) 10^3/uL RBC 4.44 (4.2-5.4) 10^6/uL Hgb 13.9 D (12.0-16.0) g/dL Hct 42.1 (37.0-47.0) % MCV 94.8 (80-100) fL MCH 31.3 (27.0-34.0) pg MCHC 33.0 (33.0-35.0) g/dL Plt Count 241 (150-450) 10^3/uL Lymph % (Auto) 12.5 L (20.5-50.1) % [place] % (Auto) 5.2 (2-8) % Eos % (Auto) 0.8 L (1.0-3.0) % Add Manual Diff Yes Neutrophils % (Manual) 78 H (42-75) % Band Neutrophils % 7 % Lymphocytes % (Manual) 12 L (20-50) % Monocytes % (Manual) 3 (2-8) % PT (9.0-12.0) SEC INR (0.9-1.2) Sodium (136-145) mmol/L Potassium (3.5-5.1) mmol/L Chloride (98-107) mmol/L Carbon Dioxide (21-32) mmol/L Anion Gap (7-13) mEq/L BUN (7-18) mg/dL Creatinine (0.55-1.02) mg/dL Est Cr Clr Drug Dosing Estimated GFR (MDRD) BUN/Creatinine Ratio (No establ ref range) Glucose (74-99) mg/dL Calcium (8.5-10.1) mg/dL Total Bilirubin (0.2-1.0) mg/dL AST (15-37) U/L ALT (14-59) U/L Alkaline Phosphatase (46-116) U/L Troponin I (0.000-0.056) ng/mL Total Protein (6.4-8.2) g/dL Albumin (3.4-5.0) g/dL Globulin Albumin/Globulin Ratio Urine Color Yellow (YELLOW) Urine Appearance Clear (CLEAR) Urine pH 7.5 (5.0-9.0) Ur Specific [place] 1.020 (1.005-1.030) Urine Protein 100 H (NEGATIVE) Urine Glucose (UA) Negative (NEGATIVE) Urine Ketones Negative (NEGATIVE) Urine Occult Blood Negative (NEGATIVE) Urine Nitrite Negative (NEGATIVE) Urine Bilirubin Negative (NEGATIVE) Urine Urobilinogen 0.2 (0.2-1.0) mg/dL Ur Leukocyte Esterase Negative (NEGATIVE) Urine RBC Not seen /HPF Urine WBC 0-5 (0-5/HPF) /HPF Ur Epithelial Cells Few (NOT SEEN) /HPF Amorphous Sediment Moderate H (NOT SEEN) /HPF Urine Bacteria Few (0-FEW/HPF) /HPF Fine Granular Casts Few H (NOT SEEN) /LPF Urine Mucus Rare (NOT SEEN) /LPF COVID-19 (SEBASTIEN) Negative (NEGATIVE) 04/05/20 04/05/20 Range/Units 19:24 19:24 WBC (5.0-10.0) 10^3/uL RBC (4.2-5.4) 10^6/uL Hgb (12.0-16.0) g/dL Hct (37.0-47.0) % MCV (80-100) fL MCH (27.0-34.0) pg MCHC (33.0-35.0) g/dL Plt Count (150-450) 10^3/uL Lymph % (Auto) (20.5-50.1) % [place] % (Auto) (2-8) % Eos % (Auto) (1.0-3.0) % Add Manual Diff Neutrophils % (Manual) (42-75) % Band Neutrophils % % Lymphocytes % (Manual) (20-50) % Monocytes % (Manual) (2-8) % PT 20.6 H (9.0-12.0) SEC INR 2.2 H (0.9-1.2) Sodium 138 (136-145) mmol/L Potassium 3.8 (3.5-5.1) mmol/L Chloride 101 (98-107) mmol/L Carbon Dioxide 30 (21-32) mmol/L Anion Gap 10.8 (7-13) mEq/L BUN 18 (7-18) mg/dL Creatinine 0.87 (0.55-1.02) mg/dL Est Cr Clr Drug Dosing TNP Estimated GFR (MDRD) > 60 BUN/Creatinine Ratio 20.7 (No establ ref range) Glucose 139 H (74-99) mg/dL Calcium 8.8 (8.5-10.1) mg/dL Total Bilirubin 0.9 (0.2-1.0) mg/dL AST 15 (15-37) U/L ALT 21 (14-59) U/L Alkaline Phosphatase 75 (46-116) U/L Troponin I < 0.017 (0.000-0.056) ng/mL Total Protein 7.7 (6.4-8.2) g/dL Albumin 4.0 (3.4-5.0) g/dL Globulin 3.7 Albumin/Globulin Ratio 1.1 Urine Color (YELLOW) Urine Appearance (CLEAR) Urine pH (5.0-9.0) Ur Specific [place] (1.005-1.030) Urine Protein (NEGATIVE) Urine Glucose (UA) (NEGATIVE) Urine Ketones (NEGATIVE) Urine Occult Blood (NEGATIVE) Urine Nitrite (NEGATIVE) Urine Bilirubin (NEGATIVE) Urine Urobilinogen (0.2-1.0) mg/dL Ur Leukocyte Esterase (NEGATIVE) Urine RBC /HPF Urine WBC (0-5/HPF) /HPF Ur Epithelial Cells (NOT SEEN) /HPF Amorphous Sediment (NOT SEEN) /HPF Urine Bacteria (0-FEW/HPF) /HPF Fine Granular Casts (NOT SEEN) /LPF Urine Mucus (NOT SEEN) /LPF COVID-19 (SEBASTIEN) (NEGATIVE) Result Diagrams: 04/05/20 19:24 04/05/20 19:24 - Problem List (1) Acute intracranial hemorrhage SNOMED Code(s): 7755990, 0199731 ICD Code: I62.9 - NONTRAUMATIC INTRACRANIAL HEMORRHAGE, UNSPECIFIED Status: Acute Current Visit: No (2) Congestive heart failure SNOMED Code(s): 85835457 ICD Code: I50.9 - HEART FAILURE, UNSPECIFIED Status: Acute Current Visit: No Qualifiers: Heart failure type: unspecified Heart failure chronicity: acute Qualified Code(s): I50.9 - Heart failure, unspecified (3) Afib SNOMED Code(s): 23995819 ICD Code: I48.91 - UNSPECIFIED ATRIAL FIBRILLATION Status: Chronic Priority: Medium Current Visit: No (4) Anticoagulant therapy SNOMED Code(s): 594711549 ICD Code: Z79.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 ANTICOAGULANTS Status: Chronic Priority: Low Current Visit: No (5) COPD (chronic obstructive pulmonary disease) SNOMED Code(s): 24482226 ICD Code: J44.9 - CHRONIC OBSTRUCTIVE PULMONARY DISEASE, UNSPECIFIED Status: Chronic Priority: Medium Current Visit: No Qualifiers: COPD type: unspecified COPD Qualified Code(s): J44.9 - Chronic obstructive pulmonary disease, unspecified Problem List Initiated/Reviewed/Updated: Yes Orders Last 24hrs: Active Orders 24 hr Category Date Time Status Admission Diagnosis [ADT] Routine ADT 04/05/20 20:41 Ordered Admission Status [Patient Status] [ADT] Routine ADT 04/05/20 20:41 Active Antiembolic Devices [RC] PER UNIT ROUTINE Care 04/05/20 21:50 Active Oxygen Therapy [RC] PRN Care 04/05/20 21:49 Active Peripheral IV Care [RC] . DIRECTED Care 04/05/20 21:50 Active RT Aerosol Therapy [RC] ASDIRECTED Care 04/05/20 21:48 Active Up With Assistance [RC] ASDIRECTED Care 04/05/20 21:49 Active VTE/DVT Education [RC] PER UNIT ROUTINE Care 04/05/20 21:49 Active Vital Signs [RC] Q4H Care 04/05/20 21:49 Active Nothing per Oral Now Diet [DIET] Diet 04/05/20 Breakfast Active FRESH FROZEN PLASMA [BBK] Urgent Lab 04/05/20 19:24 Received TYPE AND SCREEN [BBK] Routine Lab 04/05/20 19:24 Received Albuterol/Ipratropium [DuoNeb 3.0-0.5 MG/3 ML] Med 04/05/20 21:48 Active 3 ml NEB Q2H PRN Atropine 1% [Atropine 1% Ophth Soln] Med 04/05/20 21:48 Active 1 ml SL Q2H PRN LORazepam [Ativan] Med 04/05/20 21:47 Active 1 mg IVPUSH Q1H PRN Ondansetron [Zofran] Med 04/05/20 21:49 Active 4 mg IVPUSH Q4H PRN Sodium Chloride 0.9% [Saline Flush] Med 04/05/20 21:49 Active 10 ml FLUSH ASDIRECTED PRN fentaNYL [Sublimaze] Med 04/05/20 21:47 Active 25 mcg IVPUSH Q1H PRN Antiembolic Hose [OM.PC] Per Unit Routine Oth 04/05/20 21:50 Ordered Peripheral IV Insertion Adult [OM.PC] Routine Oth 04/05/20 21:49 Ordered Saline Lock Insert [OM.PC] Routine Oth 04/05/20 21:49 Ordered Transfuse Fresh Frozen Plasma [COMM] Urgent Oth 04/05/20 21:44 Ordered Resuscitation Status Routine Resus Stat 04/05/20 21:49 Ordered Medication Orders Albuterol/Ipratropium (Duoneb 3.0-0.5 Mg/3 Ml) 3 ml NEB Q2H PRN PRN Reason: sob Atropine Sulfate (Atropine 1% Ophth Soln) 1 ml SL Q2H PRN PRN Reason: secretions Fentanyl (Sublimaze) 25 mcg IVPUSH Q1H PRN PRN Reason: Pain Lorazepam (Ativan) 1 mg IVPUSH Q1H PRN PRN Reason: agitation, anxiety Ondansetron HCl (Zofran) 4 mg IVPUSH Q4H PRN PRN Reason: Nausea/Vomiting Last Admin: 04/05/20 22:19 Dose: 4 mg Documented by: NICKI Sodium Chloride (Saline Flush) 10 ml FLUSH ASDIRECTED PRN PRN Reason: Keep Vein Open Assessment/Plan Comment:: 89-year-old lady with a history of atrial fibrillation on anticoagulation with therapeutic INR The patient resented with the left sided weakness, relatively quickly deteriorating. On admission she is minimally responsive. Intracranial hemorrhage with parenchymal and subarachnoid hemorrhage noted. Family opted for nonsurgical care. Discussed treatment options, Comfort Care options. Family physician to give FFP chest fusion to try to reverse blood thinner and stop bleeding. We will also give a dose of diuretics and labetalol for pressure control. They do not wish further aggressive treatment. We'll admit for comfort care. Use fentanyl for pain Use Ativan for agitation, anxiety Oxygen as needed Atropine for secretions Palliative care, Comfort care measures with poor prognosis.
[2020-04-06] MEDS: Sodium Chloride 0.9% 10 ML Syringe FLUSH PRN ×10 (05:47→22:58)
[2020-04-06] MEDS: LORazepam 2 MG/ML SDV IVPUSH PRN ×10 (05:47→22:49)
[2020-04-06] MEDS: Ondansetron 4 MG/2 ML SDV IVPUSH PRN (09:21)
[2020-04-06] MEDS ORDERED: Atropine 1% Ophth Soln 5 ML BOTTLE SL PRN (09:24)
[2020-04-06] MEDS: fentaNYL 100 MCG/2 ML SDV IVPUSH PRN ×8 (09:48→22:54)
--- NOTE | 2020-04-06 11:34 | PCM.PN ---
- General Info Date of Service: 04/06/20 Admission Dx/Problem (Free Text): Admission Diagnosis/Problem Admission Diagnosis/Problem hemorrhagic stroke Subjective Update: Remained unresponsive Tachypneic No spontaneous movement of extremities Not following commands - Patient Data Vitals - Most Recent: Last Vital Signs Temp 99.2 F 04/06/20 04:00 Pulse 90 04/06/20 04:00 Resp 24 H 04/06/20 04:00 BP 140/70 04/06/20 04:00 Pulse Ox 94 L 04/06/20 04:00 Weight - Most Recent: 217 lb 6.4 oz I&O - Last 24 Hours: Intake & Output 04/05/20 04/06/20 04/06/20 22:59 06:59 14:59 Intake Total 277 Output Total 2250 -1972 Lab Results Last 24 Hours: Laboratory Results - last 24 hr 04/05/20 04/05/20 04/05/20 Range/Units 19:03 19:23 19:24 WBC 10.2 H (5.0-10.0) 10^3/uL RBC 4.44 (4.2-5.4) 10^6/uL Hgb 13.9 D (12.0-16.0) g/dL Hct 42.1 (37.0-47.0) % MCV 94.8 (80-100) fL MCH 31.3 (27.0-34.0) pg MCHC 33.0 (33.0-35.0) g/dL Plt Count 241 (150-450) 10^3/uL Lymph % (Auto) 12.5 L (20.5-50.1) % [place] % (Auto) 5.2 (2-8) % Eos % (Auto) 0.8 L (1.0-3.0) % Add Manual Diff Yes Neutrophils % (Manual) 78 H (42-75) % Band Neutrophils % 7 % Lymphocytes % (Manual) 12 L (20-50) % Monocytes % (Manual) 3 (2-8) % PT (9.0-12.0) SEC INR (0.9-1.2) Sodium (136-145) mmol/L Potassium (3.5-5.1) mmol/L Chloride (98-107) mmol/L Carbon Dioxide (21-32) mmol/L Anion Gap (7-13) mEq/L BUN (7-18) mg/dL Creatinine (0.55-1.02) mg/dL Est Cr Clr Drug Dosing Estimated GFR (MDRD) BUN/Creatinine Ratio (No establ ref range) Glucose (74-99) mg/dL Calcium (8.5-10.1) mg/dL Total Bilirubin (0.2-1.0) mg/dL AST (15-37) U/L ALT (14-59) U/L Alkaline Phosphatase (46-116) U/L Troponin I (0.000-0.056) ng/mL Total Protein (6.4-8.2) g/dL Albumin (3.4-5.0) g/dL Globulin Albumin/Globulin Ratio Urine Color Yellow (YELLOW) Urine Appearance Clear (CLEAR) Urine pH 7.5 (5.0-9.0) Ur Specific [place] 1.020 (1.005-1.030) Urine Protein 100 H (NEGATIVE) Urine Glucose (UA) Negative (NEGATIVE) Urine Ketones Negative (NEGATIVE) Urine Occult Blood Negative (NEGATIVE) Urine Nitrite Negative (NEGATIVE) Urine Bilirubin Negative (NEGATIVE) Urine Urobilinogen 0.2 (0.2-1.0) mg/dL Ur Leukocyte Esterase Negative (NEGATIVE) Urine RBC Not seen /HPF Urine WBC 0-5 (0-5/HPF) /HPF Ur Epithelial Cells Few (NOT SEEN) /HPF Amorphous Sediment Moderate H (NOT SEEN) /HPF Urine Bacteria Few (0-FEW/HPF) /HPF Fine Granular Casts Few H (NOT SEEN) /LPF Urine Mucus Rare (NOT SEEN) /LPF COVID-19 (SEBASTIEN) Negative (NEGATIVE) Blood Type Gel Antibody Screen 04/05/20 04/05/20 04/05/20 Range/Units 19:24 19:24 19:24 WBC (5.0-10.0) 10^3/uL RBC (4.2-5.4) 10^6/uL Hgb (12.0-16.0) g/dL Hct (37.0-47.0) % MCV (80-100) fL MCH (27.0-34.0) pg MCHC (33.0-35.0) g/dL Plt Count (150-450) 10^3/uL Lymph % (Auto) (20.5-50.1) % [place] % (Auto) (2-8) % Eos % (Auto) (1.0-3.0) % Add Manual Diff Neutrophils % (Manual) (42-75) % Band Neutrophils % % Lymphocytes % (Manual) (20-50) % Monocytes % (Manual) (2-8) % PT 20.6 H (9.0-12.0) SEC INR 2.2 H (0.9-1.2) Sodium 138 (136-145) mmol/L Potassium 3.8 (3.5-5.1) mmol/L Chloride 101 (98-107) mmol/L Carbon Dioxide 30 (21-32) mmol/L Anion Gap 10.8 (7-13) mEq/L BUN 18 (7-18) mg/dL Creatinine 0.87 (0.55-1.02) mg/dL Est Cr Clr Drug Dosing TNP Estimated GFR (MDRD) > 60 BUN/Creatinine Ratio 20.7 (No establ ref range) Glucose 139 H (74-99) mg/dL Calcium 8.8 (8.5-10.1) mg/dL Total Bilirubin 0.9 (0.2-1.0) mg/dL AST 15 (15-37) U/L ALT 21 (14-59) U/L Alkaline Phosphatase 75 (46-116) U/L Troponin I < 0.017 (0.000-0.056) ng/mL Total Protein 7.7 (6.4-8.2) g/dL Albumin 4.0 (3.4-5.0) g/dL Globulin 3.7 Albumin/Globulin Ratio 1.1 Urine Color (YELLOW) Urine Appearance (CLEAR) Urine pH (5.0-9.0) Ur Specific [place] (1.005-1.030) Urine Protein (NEGATIVE) Urine Glucose (UA) (NEGATIVE) Urine Ketones (NEGATIVE) Urine Occult Blood (NEGATIVE) Urine Nitrite (NEGATIVE) Urine Bilirubin (NEGATIVE) Urine Urobilinogen (0.2-1.0) mg/dL Ur Leukocyte Esterase (NEGATIVE) Urine RBC /HPF Urine WBC (0-5/HPF) /HPF Ur Epithelial Cells (NOT SEEN) /HPF Amorphous Sediment (NOT SEEN) /HPF Urine Bacteria (0-FEW/HPF) /HPF Fine Granular Casts (NOT SEEN) /LPF Urine Mucus (NOT SEEN) /LPF COVID-19 (SEBASTIEN) (NEGATIVE) Blood Type O POSITIVE Gel Antibody Screen Positive Med Orders - Current: Current Medications Acetaminophen (Tylenol) 650 mg RECTAL Q4H PRN PRN Reason: Fever Albuterol/Ipratropium (Duoneb 3.0-0.5 Mg/3 Ml) 3 ml NEB Q2H PRN PRN Reason: sob Last Admin: 04/06/20 09:46 Dose: 3 ml Documented by: Atropine Sulfate (Atropine 1% Ophth Soln) 0 ml SL Q2H PRN PRN Reason: secretions Fentanyl (Sublimaze) 25 mcg IVPUSH Q1H PRN PRN Reason: Pain Last Admin: 04/06/20 09:48 Dose: 25 mcg Documented by: Lorazepam (Ativan) 1 mg IVPUSH Q1H PRN PRN Reason: agitation, anxiety Last Admin: 04/06/20 10:30 Dose: 1 mg Documented by: Ondansetron HCl (Zofran) 4 mg IVPUSH Q4H PRN PRN Reason: Nausea/Vomiting Last Admin: 04/06/20 09:21 Dose: 4 mg Documented by: Sodium Chloride (Saline Flush) 10 ml FLUSH ASDIRECTED PRN PRN Reason: Keep Vein Open Last Admin: 04/06/20 09:21 Dose: 10 ml Documented by: Discontinued Medications Atropine Sulfate (Atropine 1% Ophth Soln) 1 ml SL Q2H PRN PRN Reason: secretions Furosemide (Lasix) 40 mg IVPUSH NOW ONE Stop: 04/05/20 20:32 Last Admin: 04/05/20 22:19 Dose: 40 mg Documented by: Labetalol HCl (Normodyne) 20 mg IVPUSH ONETIME ONE Stop: 04/05/20 21:47 Last Admin: 04/05/20 22:19 Dose: 20 mg Documented by: - Exam General: Other (tachypneic). No: Alert Neck: Supple Lungs: Rhonchi, Wheezing Neurological: Other (unresponsive) Psy/Mental Status: No: Alert Sepsis Event Note - Evaluation Sepsis Screening Result: No Definite Risk - Focused Exam Vital Signs: Vital Signs Temp Pulse Resp BP Pulse Ox 04/06/20 04:00 99.2 F 90 24 H 140/70 94 L 04/06/20 00:00 98.4 F 70 16 136/67 96 Date Exam was Performed: 04/06/20 Time Exam was Performed: 11:27 - Problem List & Annotations (1) Acute intracranial hemorrhage SNOMED Code(s): 3571575, 2070175 Code(s): I62.9 - NONTRAUMATIC INTRACRANIAL HEMORRHAGE, UNSPECIFIED Status: Acute Current Visit: No (2) Congestive heart failure SNOMED Code(s): 09077291 Code(s): I50.9 - HEART FAILURE, UNSPECIFIED Status: Acute Current Visit: No Qualifiers: Heart failure type: unspecified Heart failure chronicity: acute Qualified Code(s): I50.9 - Heart failure, unspecified (3) Afib SNOMED Code(s): 04133802 Code(s): I48.91 - UNSPECIFIED ATRIAL FIBRILLATION Status: Chronic Priority: Medium Current Visit: No (4) Anticoagulant therapy SNOMED Code(s): 050879578 Code(s): 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 - 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 (CURRENT) USE OF ANTICOAGULANTS Status: Chronic Priority: Low Current Visit: No (5) COPD (chronic obstructive pulmonary disease) SNOMED Code(s): 51433882 Code(s): J44.9 - CHRONIC OBSTRUCTIVE PULMONARY DISEASE, UNSPECIFIED Status: Chronic Priority: Medium Current Visit: No Qualifiers: COPD type: unspecified COPD Qualified Code(s): J44.9 - Chronic obstructive pulmonary disease, unspecified - Problem List Review Problem List Initiated/Reviewed/Updated: Yes - My Orders Last 24 Hours: My Active Orders 04/05/20 21:44 Transfuse Fresh Frozen Plasma [COMM] Urgent 04/05/20 21:47 LORazepam [Ativan] 1 mg IVPUSH Q1H PRN fentaNYL [Sublimaze] 25 mcg IVPUSH Q1H PRN 04/05/20 21:48 RT Aerosol Therapy [RC] ASDIRECTED Albuterol/Ipratropium [DuoNeb 3.0-0.5 MG/3 ML] 3 ml NEB Q2H PRN 04/05/20 21:49 Oxygen Therapy [RC] PRN Up With Assistance [RC] ASDIRECTED VTE/DVT Education [RC] PER UNIT ROUTINE Vital Signs [RC] 00,04,08,12,16,20 Ondansetron [Zofran] 4 mg IVPUSH Q4H PRN Sodium Chloride 0.9% [Saline Flush] 10 ml FLUSH ASDIRECTED PRN Peripheral IV Insertion Adult [OM.PC] Routine Saline Lock Insert [OM.PC] Routine Resuscitation Status Routine 04/05/20 21:50 Antiembolic Devices [RC] PER UNIT ROUTINE Peripheral IV Care [RC] 09,21 Antiembolic Hose [OM.PC] Per Unit Routine 04/06/20 09:24 Atropine 1% [Atropine 1% Ophth Soln] 0 ml SL Q2H PRN 04/06/20 11:22 Acetaminophen [Tylenol] 650 mg RECTAL Q4H PRN - Plan Plan:: 89-year-old lady with a history of atrial fibrillation on anticoagulation with therapeutic INR The patient resented with the left sided weakness, relatively quickly deteriorating. On admission she is minimally responsive. Intracranial hemorrhage with parenchymal and subarachnoid hemorrhage noted. Family opted for nonsurgical care. Discussed treatment options, Comfort Care options. Family opted to give FFP to try to reverse blood thinner and stop bleeding. she was also given a dose of diuretics and labetalol for pressure control. today will continue with comfort care measures. duoneb for wheezing Use fentanyl for pain, tachypnea Use Ativan for agitation, anxiety Oxygen as needed Atropine for secretions continue Palliative care, Comfort care measures with poor prognosis. life expectancy is 24-36 h
[2020-04-06] MEDS: Acetaminophen 650 MG Supp RECTAL PRN ×2 (14:30→20:17)
[2020-04-07] VITALS: BP 132/61
[2020-04-07 00:16] VITALS: PULSE 108
[2020-04-07] MEDS: LORazepam 2 MG/ML SDV IVPUSH PRN (01:16)
[2020-04-07] MEDS: Sodium Chloride 0.9% 10 ML Syringe FLUSH PRN ×3 (01:16→01:26)
[2020-04-07] MEDS: fentaNYL 100 MCG/2 ML SDV IVPUSH PRN (01:23)
--- NOTE | 2020-04-07 14:22 | PCM.DCSUM1 ---
Discharge Summary - Hospital Course Free Text/Narrative:: 89-year-old lady with a history of atrial fibrillation on anticoagulation with therapeutic INR The patient resented with the left sided weakness, relatively quickly deteriorating. On admission she was minimally responsive. Intracranial hemorrhage with parenc hymal and subarachnoid hemorrhage noted. Family opted for nonsurgical care. Discussed treatment options, Comfort Care options. Family opted for comfort care measures. pain, dyspnea was managed she on 04/07/20 Diagnosis: Stroke: Yes Modified Beauregard Scale: Modified Sharlene Scale Score: 6 - Discharge Data Discharge Date: 04/07/20 Discharge Disposition: Condition: Good - Referral to Home Health Primary Care Physician: PCP None - Discharge Diagnosis/Problem(s) (1) Acute intracranial hemorrhage SNOMED Code(s): 8010883, 9265239 ICD Code: I62.9 - NONTRAUMATIC INTRACRANIAL HEMORRHAGE, UNSPECIFIED Status: Acute (2) Congestive heart failure SNOMED Code(s): 51593189 ICD Code: I50.9 - HEART FAILURE, UNSPECIFIED Status: Acute Qualifiers: Heart failure type: unspecified Heart failure chronicity: acute Qualified Code(s): I50.9 - Heart failure, unspecified (3) Afib SNOMED Code(s): 62598486 ICD Code: I48.91 - UNSPECIFIED ATRIAL FIBRILLATION Status: Chronic Priority: Medium (4) Anticoagulant therapy SNOMED Code(s): 531419181 ICD Code: Z79.01 - [facility] (CURRENT) USE OF ANTICOAGULANTS Status: Chronic Priority: Low (5) COPD (chronic obstructive pulmonary disease) SNOMED Code(s): 68933756 ICD Code: J44.9 - CHRONIC OBSTRUCTIVE PULMONARY DISEASE, UNSPECIFIED Status: Chronic Priority: Medium Qualifiers: COPD type: unspecified COPD Qualified Code(s): J44.9 - Chronic obstructive pulmonary disease, unspecified - Discharge Plan *PRESCRIPTION DRUG MONITORING PROGRAM REVIEWED*: Not Applicable *COPY OF PRESCRIPTION DRUG MONITORING REPORT IN PATIENT DANIELA: Not Applicable Home Medications: Home Meds Losartan [Cozaar] 50 mg PO DAILY 01/13/14 [History] Metoprolol Tartrate [Lopressor] 100 mg PO QAM 01/13/14 [History] Omeprazole 20 mg PO DAILY 01/13/14 [History] amLODIPine Besylate [Amlodipine Besylate] 5 mg PO DAILY 01/13/14 [History] Calcium Carb, Citrate/Vit D3 [Citracal + D ER] 1 tab PO DAILY 03/09/15 [History] Cholecalciferol (Vitamin D3) [Vitamin D3] 1,000 unit PO DAILY 03/09/15 [History] [place]-3 Fatty Acids [[place]-3] 1 cap PO BID 03/09/15 [History] Oxybutynin [Oxybutynin ER] 10 mg PO DAILY PRN 03/09/15 [History] Fluticasone Propionate [Flonase] 2 spray NASBOTH DAILY 04/07/15 [History] Nitroglycerin [Nitrostat] 1 tab SL ASDIRECTED PRN 04/07/15 [History] Aspirin [Ecotrin EC] 81 mg PO DAILY 01/17/16 [History] Metoprolol Tartrate [Lopressor] 50 mg PO QPM 01/17/16 [History] Potassium 99 mg PO DAILY 01/17/16 [History] Albuterol/Ipratropium [DuoNeb 3.0-0.5 MG/3 ML] 3 ml NEB Q6HRRT PRN #120 neb 01/20/16 [Rx] Pravastatin Sodium 20 mg PO BEDTIME 05/31/18 [History] Acetaminophen [Tylenol Extra Strength] 1,000 mg PO Q6H PRN 09/11/19 [History] Budesonide/Formoterol [Symbicort 160-4.5 MCG] 2 puff PO BID 09/11/19 [History] Ascorbic Acid 500 mg PO DAILY 09/16/19 [History] Furosemide [Lasix] 20 mg PO DAILY tablet 09/16/19 [Rx] Pharmacy to Dose - Warfarin 1 dose .XX ASDIRECTED each 09/23/19 [Rx] Warfarin [Coumadin] 4 mg PO DAILY@1400 30 Days #30 tablet 09/23/19 [Rx] - Discharge Summary/Plan Comment DC Time >30 min.: No - Patient Data Vitals - Most Recent: Last Vital Signs Temp 99.7 F 04/07/20 00:13 Pulse 108 H 04/07/20 00:13 Resp 45 H 04/07/20 00:13 BP 132/61 04/06/20 20:17 Pulse Ox 68 L 04/07/20 00:13 Weight - Most Recent: 217 lb 6.4 oz I&O - Last 24 hours: Intake & Output 08/03/20 08/04/20 08/04/20 22:59 06:59 14:59 Output Total 400 Balance -400 Lab Results - Last 24 hrs: Laboratory Results - last 24 hr 04/05/20 Range/Units 19:24 Blood Type O POSITIVE Gel Antibody Screen Positive Antibody Identification Cancelled Med Orders - Current: Current Medications Discontinued Medications Acetaminophen (Tylenol) 650 mg RECTAL Q4H PRN PRN Reason: Fever Last Admin: 04/06/20 20:17 Dose: 650 mg Documented by: Albuterol/Ipratropium (Duoneb 3.0-0.5 Mg/3 Ml) 3 ml NEB Q2H PRN PRN Reason: sob Last Admin: 04/06/20 09:46 Dose: 3 ml Documented by: Atropine Sulfate (Atropine 1% Ophth Soln) 1 ml SL Q2H PRN PRN Reason: secretions Atropine Sulfate (Atropine 1% Ophth Soln) 0 ml SL Q2H PRN PRN Reason: secretions Last Admin: 04/06/20 14:30 Dose: 0.2 ml Documented by: Fentanyl (Sublimaze) 25 mcg IVPUSH Q1H PRN PRN Reason: Pain Last Admin: 04/07/20 01:23 Dose: 25 mcg Documented by: Furosemide (Lasix) 40 mg IVPUSH NOW ONE Stop: 04/05/20 20:32 Last Admin: 04/05/20 22:19 Dose: 40 mg Documented by: Labetalol HCl (Normodyne) 20 mg IVPUSH ONETIME ONE Stop: 04/05/20 21:47 Last Admin: 04/05/20 22:19 Dose: 20 mg Documented by: Lorazepam (Ativan) 1 mg IVPUSH Q1H PRN PRN Reason: agitation, anxiety Last Admin: 04/07/20 01:16 Dose: 1 mg Documented by: Ondansetron HCl (Zofran) 4 mg IVPUSH Q4H PRN PRN Reason: Nausea/Vomiting Last Admin: 04/06/20 09:21 Dose: 4 mg Documented by: Sodium Chloride (Saline Flush) 10 ml FLUSH ASDIRECTED PRN PRN Reason: Keep Vein Open Last Admin: 04/07/20 01:26 Dose: 10 ml Documented by: - Exam Physical Findings Comments:: no respiration no heart sounds unresponsive
== END 2020-04-07 05:10 | disposition expired | DRG 951 ==
LOC: DL.ED 19:07 → DL.MS 20:41 → DL.ED 20:45
PROVIDERS: ADMIT Internal Medicine; ATTEND Internal Medicine
PROC: 30233K1 Transfusion of Nonautologous Frozen Plasma into Peripheral Vein, Percutaneous Approach (ICD-10-PCS; principal; 2020-04-05)
DX: Z51.5 Encounter for palliative care (principal); I60.9 Nontraumatic subarachnoid hemorrhage, unspecified; I48.91 Unspecified atrial fibrillation; I10 Essential (primary) hypertension; I48.20 Chronic atrial fibrillation, unspecified; G81.94 Hemiplegia, unspecified affecting left nondominant side; I46.9 Cardiac arrest, cause unspecified; H54.7 Unspecified visual loss; J44.9 Chronic obstructive pulmonary disease, unspecified; I11.0 Hypertensive heart disease with heart failure; I50.9 Heart failure, unspecified; Z20.828 Contact with and (suspected) exposure to other viral communicable diseases; K21.9 Gastro-esophageal reflux disease without esophagitis; Z88.6 Allergy status to analgesic agent; E66.9 Obesity, unspecified; N32.81 Overactive bladder; L30.9 Dermatitis, unspecified; R29.810 Facial weakness; Z88.5 Allergy status to narcotic agent; Z79.82 Long term (current) use of aspirin; Z79.01 Long term (current) use of anticoagulants; Z88.8 Allergy status to other drugs, medicaments and biological substances; Z79.899 Other long term (current) drug therapy; I25.2 Old myocardial infarction; Z85.820 Personal history of malignant melanoma of skin; Z98.49 Cataract extraction status, unspecified eye; Z90.710 Acquired absence of both cervix and uterus; Z28.82 Immunization not carried out because of caregiver refusal; Z68.39 Body mass index [BMI] 39.0-39.9, adult; Z86.73 Personal history of transient ischemic attack (TIA), and cerebral infarction without residual deficits; Z79.51 Long term (current) use of inhaled steroids; Z90.89 Acquired absence of other organs; Z90.49 Acquired absence of other specified parts of digestive tract; Z98.890 Other specified postprocedural states; Z82.49 Family history of ischemic heart disease and other diseases of the circulatory system; Z82.5 Family history of asthma and other chronic lower respiratory diseases; Z99.81 Dependence on supplemental oxygen; Z86.19 Personal history of other infectious and parasitic diseases
CPT/HCPCS: 36415; 36430; 70450; 80053; 81001; 84484; 85025; 85610; 86850; 86870; 86900; 86901; 93005; 94640; 96374; 99285; 99285-25; A9270-GY; J1940; J2060; J2405; J3010; J3490; J7620-GY; P9017; U0002